=== PATIENT | female | born 1955 | race Caucasian/White ===

== ENCOUNTER 2017-07-09 11:36 | Emergency (ER) | payer MEDICAID, SELFPAY ==
[2017-07-09 11:42] VITALS: BP 140/65; PULSE 92; RESP 16; TEMP 36.9; O2SAT 100; BMI 53.1
--- NOTE | 2017-07-09 12:03 | HMH.EDSKAF ---
ED Disposition Clinical Impression: Left foot pain Disposition: Home, Self-Care Condition on Discharge: Good Instructions: DI for Skin Abscess Additional Instructions: Please go straight to Dr. Lambert's office at 1 PM, to be seen as a walk-in, as discussed with the office just now. Continue the current antibiotics until directed otherwise by Dr. Lambert. Referrals: Patricia Lambert, CARLEE [Physician] - Time of Disposition: 12:05 - Critical Care Critical Care Time: No Attestation: On , the high probability of a clinically significant, sudden or life threatening deterioration of the following system(s) required my full and direct attention, intervention and personal management. The time I documented below is in addition to time spent performing reported procedures but includes the following listed in this critical care notation. Medical Decision Making - Medical Records Medical records reviewed: Yes: I reviewed the patient's medical records. Vital Signs: 07/09/17 11:42 07/09/17 12:23 Temperature 98.4 F 98.4 F Temperature Source Oral Oral Pulse Rate 72 Pulse Rate [Right Radial] 92 H Respiratory Rate 16 16 Blood Pressure 148/86 Blood Pressure [Right Arm] 140/65 Blood Pressure Mean [Right Arm] 90 Blood Pressure Source Automatic Cuff Blood Pressure Source [Right Arm] Automatic Cuff Blood Pressure Position Supine Blood Pressure Position [Right Arm] Sitting 02 Sat by Pulse Oximetry 100 Oxygen Delivery Method Room Air Room Air - Physician Consults Physician Consulted: Dr Patricia Lambert Time: 12:05 Reason -: Pt condition, Podiatry Eval/Care Comment/Response: Case discussed with a wire harness design engineer, advise of patient's presentation and findings, agreeable to see patient today at 1 PM, as a walk-in. - Cristian Inquiry Pt receiving controlled substance: No Skin/Abscess/FB HPI - General Chief complaint: Skin/Abscess/Foreign Body Stated complaint: left foot infection Mode of Arrival: Ambulatory Limitations: No Limitations Description of Symptoms (Recalled from ER Triage Doc. by RN): Infection left foot - History of Present Illness HPI narrative: This is a 61-year-old female patient with a left sole sore for the past 2 weeks. She has seen her PCP which started her on clindamycin, and refer her to Dr. Patricia Lambert. Patient stated that she was unable to get an appointment with the wire harness design engineer until a month from now, so she decided to come to the emergency room instead. Patient advised that her PCP stuck a needle into her left sole and she has obtained fluid from that specific sore. complaint: other (Left sole sore) Onset (ago): week(s) (2) Tetanus up to date: yes Location: L foot Severity: mild Severity scale (1-10): 2 Quality: burning Consistency: intermittent Relieving factors: none Exacerbating factors: movement - Related Data Home Medications Medication Instructions Recorded Confirmed Lisinopril/Hydrochlorothiazide 1 tab PO DAILY 07/09/17 07/09/17 [Lisinopril-Hctz 10-12.5 mg Tab] Omeprazole [Omeprazole 20mg Tab] 20 mg PO DAILY MDD 20mg 07/09/17 07/09/17 Sulindac 200 mg PO BID 07/09/17 07/09/17 clindamycin HCl 300 mg capsule 300 mg PO TID 07/09/17 mupirocin 2 % topical ointment 1 applic TOPICAL BID 07/09/17 triamcinolone acetonide 0.1 % 1 applic TOPICAL BID 07/09/17 topical ointment Allergies Allergy/AdvReac Type Severity Reaction Status Date / Time No Known Allergies Allergy Verified 07/09/17 12:50 [facility] History I have reviewed the patient's past medical history: Yes Medical History: Denies:: Diabetes Mellitus Type 1, Diabetes Mellitus Type 2 Amputation: No Fractures: No - Social History Educational Level: Completed High School Smoking Status: Never smoker Alcohol Intake: never - Psychiatric History Expresses thoughts of harming self/others: None Suicide Plan Description: No Plan ROS Obtained: Yes All systems reviewed & no additional complaints, Yes Systems reviewe
--- NOTE | 2017-07-09 12:06 | ED_ITS ---
ED Disposition Clinical Impression: Left foot pain Disposition: Home, Self-Care Condition on Discharge: Good Instructions: DI for Skin Abscess Additional Instructions: Please go straight to Dr. Lambert's office at 1 PM, to be seen as a walk-in, as discussed with the office just now. Continue the current antibiotics until directed otherwise by Dr. Lambert. Referrals: Patricia Lambert, CARLEE [Physician] - Time of Disposition: 12:05 - Critical Care Critical Care Time: No Attestation: On , the high probability of a clinically significant, sudden or life threatening deterioration of the following system(s) required my full and direct attention, intervention and personal management. The time I documented below is in addition to time spent performing reported procedures but includes the following listed in this critical care notation. Medical Decision Making - Medical Records Medical records reviewed: Yes: I reviewed the patient's medical records. Vital Signs: 07/09/17 11:42 07/09/17 12:23 Temperature 98.4 F 98.4 F Temperature Source Oral Oral Pulse Rate 72 Pulse Rate [Right Radial] 92 H Respiratory Rate 16 16 Blood Pressure 148/86 Blood Pressure [Right Arm] 140/65 Blood Pressure Mean [Right Arm] 90 Blood Pressure Source Automatic Cuff Blood Pressure Source [Right Arm] Automatic Cuff Blood Pressure Position Supine Blood Pressure Position [Right Arm] Sitting 02 Sat by Pulse Oximetry 100 Oxygen Delivery Method Room Air Room Air - Physician Consults Physician Consulted: Dr Patricia Lambert Time: 12:05 Reason -: Pt condition, Podiatry Eval/Care Comment/Response: Case discussed with a cashier supervisor, advise of patient's presentation and findings, agreeable to see patient today at 1 PM, as a walk-in. - Cristian Inquiry Pt receiving controlled substance: No Skin/Abscess/FB HPI - General Chief complaint: Skin/Abscess/Foreign Body Stated complaint: left foot infection Mode of Arrival: Ambulatory Limitations: No Limitations Description of Symptoms (Recalled from ER Triage Doc. by RN): Infection left foot - History of Present Illness HPI narrative: This is a 61-year-old female patient with a left sole sore for the past 2 weeks. She has seen her PCP which started her on clindamycin, and refer her to Dr. Patricia Lambert. Patient stated that she was unable to get an appointment with the cashier supervisor until a month from now, so she decided to come to the emergency room instead. Patient advised that her PCP stuck a needle into her left sole and she has obtained fluid from that specific sore. complaint: other (Left sole sore) Onset (ago): week(s) (2) Tetanus up to date: yes Location: L foot Severity: mild Severity scale (1-10): 2 Quality: burning Consistency: intermittent Relieving factors: none Exacerbating factors: movement - Related Data Home Medications Medication Instructions Recorded Confirmed Lisinopril/Hydrochlorothiazide 1 tab PO DAILY 07/09/17 07/09/17 [Lisinopril-Hctz 10-12.5 mg Tab] Omeprazole [Omeprazole 20mg Tab] 20 mg PO DAILY MDD 20mg 07/09/17 07/09/17 Sulindac 200 mg PO BID 07/09/17 07/09/17 clindamycin HCl 300 mg capsule 300 mg PO TID 07/09/17 mupirocin 2 % topical ointment 1 applic TOPICAL BID 07/09/17 triamcinolone acetonide 0.1 % 1 applic TOPICAL BID 07/09/17 topical ointment
[2017-07-09 12:23] VITALS: BP 148/86; PULSE 72; RESP 16; TEMP 36.9
== END 2017-07-09 12:25 | disposition home or self-care (01) ==
LOC: ER 12:15
PROVIDERS: Emergency Provider Emergency Medicine; Family Provider Internal Medicine Adolescent Medicine; PCP Family Medicine
DX: L03.116 Cellulitis of left lower limb (principal)
CPT/HCPCS: 99281

== ENCOUNTER → 2017-07-09 13:20 | Outpatient (CLI) | payer MEDICAID, SELFPAY ==
--- NOTE | 2017-07-09 13:20 | XR_ITS ---
XR foot wt bearing LT 3V CLINICAL INDICATION: Left foot pain ORDERING PHYSICIAN: Patricia Lambert DPM PATIENT AGE: 61 years COMPARISON: None FINDINGS: Weightbearing views are performed. There is severe pes planus reversal of the Mearys ankle. There is mild dorsal subluxation of the navicular on the talus by nearly 5 mm. There are osteoarthritic changes of the calcaneal cuboid joint. No fracture or dislocation. No lytic or blastic change or is a calcaneal spur measuring 8 mm. IMPRESSION: Severe pes planus. Osteoarthritic changes of the calcaneal cuboid joint
== END ==
PROVIDERS: Visit Provider Podiatrist
DX: M79.672 Pain in left foot (principal)
CPT/HCPCS: 73630

== ENCOUNTER → 2017-07-09 13:55 | Outpatient (CLI) | payer MEDICAID, SELFPAY ==
[2017-07-09 16:02] LABS: C-Reactive Protein 0.2 mg/L (0.0-0.9)
[2017-07-09 16:14] LABS: Basophils # 0.1 K/mm3 (0-0.2); Basophils % 0.7 % (0.1-2.0); Eosinophils # 0.3 K/mm3 (0.0-0.4); Eosinophils % 4.6 % (0.1-12.0); Hematocrit 41.7 % (37.0-47.0); Hemoglobin 12.8 g/dL (12.2-16.2); Lymphocytes # 1.4 K/mm3 (0.7-4.5); Lymphocytes % 19.7 K/mm3 (10-50); Mean Corpuscular HGB Conc 30.7 g/dL (31.8-35.4); Mean Corpuscular Hemoglobin 29.6 pg (27.0-31.2); Mean Corpuscular Volume 96.4 fl (81-99); Mean Platelet Volume 9.9 fl (7.4-10.4); Monocytes # 0.3 K/mm3 (0.1-1.0); Monocytes % 4.2 % (1.7-9.3); Neutrophils # 4.9 K/mm3 (1.8-7.8); Neutrophils % 70.7 % (37.0-80.0); Platelet Count 219 K/mm3 (142-424); Red Blood Count 4.33 M/mm3 (4.20-5.40); Red Cell Distribution Width 13.3 % (11.5-17.5); White Blood Count 6.9 K/mm3 (4.8-10.8)
[2017-07-09 16:59] LABS: Erythrocyte Sedimentation Rate 13 mm/hr (0-30)
== END ==
PROVIDERS: Family Provider Internal Medicine Adolescent Medicine; Visit Provider Podiatrist
DX: Z00.00 Encounter for general adult medical examination without abnormal findings (principal)
CPT/HCPCS: 36415; 83036; 85025; 85651; 86140

== ENCOUNTER → 2018-02-04 08:11 | Outpatient (CLI) | payer MEDICAID, SELFPAY ==
--- NOTE | 2018-02-04 08:17 | MM_ITS ---
MM Dig screening mamm BI w/CAD ORDERING PHYSICIAN : Paolo Mauricio MD PATIENT AGE: 62 years GENDER: Female COMPARISON: September 2016, April 2013, January 2011. INDICATION: ITS.REASON: SCREENING no hormones no new complaints noncontributory family history. TECHNIQUE: Standard CC and MLO images were obtained. R2 CAD reviewed. FINDINGS: Low-density breast , with generalized fatty replacement. RIGHT BREAST:Stable no new findings. Stable axillary lymph nodes partially imaged. LEFT BREAST:Stable intramammary node at the deep lateral and deep upper outer quadrant left breast IMPRESSION: Stable bilateral mammogram Follow up one year BI-RADS Category: 1 Negative RECOMMENDED FOLLOW-UP: 1YR 1 YEAR FOLLOW-UP (A letter has been sent to the patient regarding results of the study.)
== END ==
PROVIDERS: PCP Family Medicine; Visit Provider Family Medicine
DX: Z12.31 Encounter for screening mammogram for malignant neoplasm of breast (principal)
CPT/HCPCS: 77067

== ENCOUNTER → 2018-05-07 11:07 | Outpatient (CLI) | payer MEDICAID, SELFPAY | PROVIDERS: Visit Provider Podiatrist | DX: L84 Corns and callosities (principal) | CPT/HCPCS: 87070; 87077; 87186; 87205 ==

== ENCOUNTER → 2020-06-03 10:21 | Outpatient (CLI) | payer MEDICARE, MEDICAID, SELFPAY ==
[2020-06-03 12:06] LABS: Basophils % 0.3 % (0.1-2.0); Eosinophils # 0.2 K/mm3 (0.0-0.4); Eosinophils % 2.5 % (0.1-12.0); Hemoglobin 13.4 g/dL (12.2-16.2); Mean Corpuscular HGB Conc 31.9 g/dL (31.8-35.4); Mean Corpuscular Hemoglobin 29.8 pg (27.0-31.2); Mean Corpuscular Volume 93.5 fl (81-99); Mean Platelet Volume 9.6 fl (7.4-10.4); Monocytes # 0.3 K/mm3 (0.1-1.0); Monocytes % 3.4 % (1.7-9.3); Neutrophils # 7.5 K/mm3 (1.8-7.8); Neutrophils % 82.8 % (37.0-80.0); Platelet Count 211 K/mm3 (142-424); Red Cell Distribution Width 14.1 % (11.5-17.5); White Blood Count 9.1 K/mm3 (4.8-10.8)
[2020-06-03 12:41] LABS: Coronavirus 19 IgG Antibody Positive (Negative); Coronavirus 19 IgM Antibody Negative (Negative)
== END ==
PROVIDERS: PCP Nurse Practitioner; Visit Provider Nurse Practitioner
DX: Z20.822 Contact with and (suspected) exposure to COVID-19 (principal); U07.1 COVID-19; I10 Essential (primary) hypertension
CPT/HCPCS: 36415; 85025; 86328; U0003

== ENCOUNTER 2020-06-06 11:02 | Outpatient (CLI) | payer MEDICARE, MEDICAID, SELFPAY ==
[2020-06-06] VITALS (9 sets, daily range): BP systolic 109–132; BP diastolic 59–81; PULSE 72–84; RESP 18–20; TEMP 36.4–36.8; O2SAT 96–98
== END 2020-06-06 14:46 | disposition home or self-care (01) ==
PROVIDERS: PCP Nurse Practitioner; Visit Provider Nurse Practitioner
DX: U07.1 COVID-19 (principal)
CPT/HCPCS: 96365

== ENCOUNTER 2020-06-11 09:47 | Observation (INO) | payer MEDICARE, MEDICAID, SELFPAY ==
[2020-06-11] VITALS (9 sets, daily range): BP systolic 102–142; BP diastolic 50–91; PULSE 69–109; RESP 18–20; TEMP 36.6–36.8; O2SAT 94–98; BMI 47.8; BMI 34.8
--- NOTE | 2020-06-11 10:10 | XR_ITS ---
PROCEDURE: XR FOOT RT MIN 3V CLINICAL INDICATION: infected heel blister Pain COMPARISON: CR [id number] XR foot wt bearing LT 3V from 07/09/2017 FINDINGS: No fracture or dislocation. No lytic or blastic change. There is normal mineralization. The joint spaces are well-preserved. No significant degenerative/arthritic changes. No erosive changes evident. Other findings:There is a small calcaneal spur. There is no evidence bony erosive change. There is pes planus and there is generalized soft tissue swelling. IMPRESSION: No acute findings. Dictated by: Hollis English MD 06/11/2020 12:51 Hollis English MD in [place] 06/11/2020 12:51
--- NOTE | 2020-06-11 10:14 | HMH.EDGENADL ---
ED Disposition Clinical Impression: Cellulitis of foot, COVID-19 virus infection, Vesicle of skin Disposition: Admitted as Observation Condition on Discharge: Fair - Critical Care Critical Care Time: No Attestation: On 06/11/20, the high probability of a clinically significant, sudden or life threatening deterioration of the following system(s) required my full and direct attention, intervention and personal management. The time I documented below is in addition to time spent performing reported procedures but includes the following listed in this critical care notation. Medical Decision Making - Medical Records Medical records reviewed: Yes: I reviewed the patient's medical records. MR Comment: Reviewed most recent visit to Dr. Lambert on 05/07/2018. At that time she had 2 blisters on her left foot. Culture showed MRSA. - Cristian Inquiry Pt receiving controlled substance: No Vital Signs: 06/11/20 09:48 06/11/20 10:21 06/11/20 11:01 Temperature 97.8 F Temperature Source Oral Pulse Rate Pulse Rate [Left Radial] 109 H 103 H 100 H Respiratory Rate 20 Blood Pressure Blood Pressure [Right Arm] 134/69 134/69 104/67 L Blood Pressure Mean [Right Arm] 90 90 79 Blood Pressure Source Blood Pressure Source [Right Arm] Automatic Cuff Automatic Cuff Automatic Cuff Blood Pressure Position Blood Pressure Position [Right Arm] Sitting Sitting Sitting 02 Sat by Pulse Oximetry 94 L 94 L 95 Oxygen Delivery Method Room Air Room Air Room Air 06/11/20 12:05 06/11/20 14:22 06/11/20 14:25 Temperature 97.9 F 97.8 F Temperature Source Oral Oral Pulse Rate 96 H Pulse Rate [Left Radial] 98 H 103 H Respiratory Rate 18 20 Blood Pressure 142/91 H Blood Pressure [Right Arm] 142/91 H 118/58 L Blood Pressure Mean [Right Arm] 108 78 Blood Pressure Source Automatic Cuff Blood Pressure Source [Right Arm] Automatic Cuff Blood Pressure Position Sitting Blood Pressure Position [Right Arm] Sitting 02 Sat by Pulse Oximetry 96 96 Oxygen Delivery Method Room Air Room Air Room Air - Lab Data Lab Results 06/11/20 10:44: WBC 19.3 H, RBC 4.77, Hgb 14.4, Hct 44.4, MCV 93.1, MCH 30.1, MCHC 32.3, RDW 13.9, Plt Count 276, MPV 8.9, Neut % (Auto) 88.6 H, Lymph % (Auto) 5.7 L, Real % (Auto) 3.5, Eos % (Auto) 1.8, Baso % (Auto) 0.3, Neut # (Auto) 17.1 H, Lymph # (Auto) 1.1, Real # (Auto) 0.7, Eos # (Auto) 0.4, Baso # (Auto) 0.1, Total Counted 100, Neutrophils % (Manual) 88 H, Lymphocytes % (Manual) 4 L, Monocytes % (Manual) 5, Eosinophils % (Manual) 3, Platelet Estimate Normal, RBC Morphology Normal, ESR 18 06/11/20 10:44: Sodium 137, Potassium 4.0, Chloride 102, Carbon Dioxide 28, Anion Gap 11.0, BUN 34 H, Creatinine 1.10 H, Estimated Creat Clear 42, Estimated GFR 50 L, Est GFR ( Amer) 60, Glucose 149 H, Calcium 10.1, C-Reactive Protein 202.3 H 06/11/20 10:44: Lactate 1.6 Result diagrams: 06/11/20 10:44 06/11/20 10:44 Orders (Tests/Meds): ED MEDICATIONS Generic Name Dose Route Start Last Admin Trade Name Freq PRN Reason Stop Dose Admin Acetaminophen 650 mg 06/11/20 13:06 Acetaminophen 325mg Tab PO 07/11/20 13:05 Q4HP PRN As Needed for Fever or Pain Lisinopril/HCTZ 1 each 06/12/20 09:00 Lisinopril/Hctz 10-12.5mg Tablet PO 07/12/20 08:59 DAILY [facility] Vancomycin HCl 2,250 mg/ 250 mls @ 125 mls/hr 06/12/20 11:00 Sodium Chloride IV 06/25/20 12:29 1100 [facility] Insulin Human Lispro 0 unit 06/11/20 16:30 Humalog 100 Units/Ml 3ml Vial (Ssi) SQ 07/11/20 16:29 ACHS [facility] Protocol Ondansetron HCl 4 mg 06/11/20 13:06 Ondansetron 4mg/2ml Vial IV 07/11/20 13:05 Q8HP PRN Nausea Discontinued Medications Generic Name Dose Route Start Last Admin Trade Name Freq PRN Reason Stop Dose Admin Clindamycin Phosphate 600 mg/ 104 mls @ 100 mls/hr 06/11/20 10:12 06/11/20 10:25 Sodium Chloride IV 06/11/20 11:14 100 mls/hr ONCE ONE Administration
[2020-06-11 10:58] LABS: Basophils # 0.1 K/mm3 (0-0.2); Basophils % 0.3 % (0.1-2.0); Eosinophils # 0.4 K/mm3 (0.0-0.4); Eosinophils % 1.8 % (0.1-12.0); Hematocrit 44.4 % (37.0-47.0); Hemoglobin 14.4 g/dL (12.2-16.2); Lymphocytes # 1.1 K/mm3 (0.7-4.5); Lymphocytes % 5.7 % (10-50); Mean Corpuscular HGB Conc 32.3 g/dL (31.8-35.4); Mean Corpuscular Hemoglobin 30.1 pg (27.0-31.2); Mean Corpuscular Volume 93.1 fl (81-99); Mean Platelet Volume 8.9 fl (7.4-10.4); Monocytes # 0.7 K/mm3 (0.1-1.0); Monocytes % 3.5 % (1.7-9.3); Neutrophils # 17.1 K/mm3 (1.8-7.8); Neutrophils % 88.6 % (37.0-80.0); Platelet Count 276 K/mm3 (142-424); Red Blood Count 4.77 M/mm3 (4.20-5.40); Red Cell Distribution Width 13.9 % (11.5-17.5); White Blood Count 19.3 K/mm3 (4.8-10.8)
[2020-06-11 10:59] LABS: MANUAL DIFFERENTIAL MANUAL DIFFERENTIAL (MANUAL DIFF)
[2020-06-11 11:01] LABS: Chloride 102 mmol/L (98-107); Sodium 137 mmol/L (136-145)
[2020-06-11 11:04] LABS: Blood Urea Nitrogen 34 mg/dl (7-17); Creatinine Clearance Estimated 42 mL/min (50-200); Estimated Glomerular Filt Rate 50 ml/min (>60); GFR (African American) 60 ML/MIN (>60)
[2020-06-11 11:05] LABS: Calcium 10.1 mg/dl (8.4-10.2); Carbon Dioxide 28 mmol/L (22.0-30.0); Glucose 149 mg/dl (74-100); Lactic Acid 1.6 mmol/L (0.7-2.1)
[2020-06-11 11:11] LABS: C-Reactive Protein 202.3 mg/L (0-4)
[2020-06-11 11:22] LABS: Erythrocyte Sedimentation Rate 18 mm/hr (0-30)
--- NOTE | 2020-06-11 11:24 | PC.NURSE ---
Dr Cordova speaking with Dr Cox at this time.
[2020-06-11 11:29] LABS: Eosinophils % 3 % (0-3); Lymphocytes % 4 % (10-50); Monocytes % 5 % (2-9); Neutrophils % 88 % (42-76); Platelet Estimate Normal; RBC Morphology Normal; Total Cells Counted 100
--- NOTE | 2020-06-11 11:47 | HMH.PHACONS ---
- Pharmacy Consult Date: 06/11/20 Time: 11:47 Referring provider: DR. WELLER Reason for Consult:: VANCOMYCIN DOSING Allergies and ADEs:: Allergies Allergy/AdvReac Type Severity Reaction Status Date / Time No Known Allergies Allergy Verified 05/07/18 09:25 Home Medications:: Home Medications Medication Instructions Recorded Confirmed Type Lisinopril/Hydrochlorothiazide 1 tab PO DAILY 07/09/17 05/07/18 History [Lisinopril-Hctz 10-12.5 mg Tab] Omeprazole [Omeprazole 20mg Tab] 20 mg PO DAILY MDD 20mg 07/09/17 05/07/18 History Sulindac 200 mg PO BID 07/09/17 05/07/18 History triamcinolone acetonide 0.1 % 1 applic TOPICAL BID 07/09/17 05/07/18 History topical ointment cholecalciferol (vitamin D3) 125 PO 30 Days #30 cap 04/22/18 05/07/18 History mcg (5,000 unit) capsule cyanocobalamin (vitamin B-12) PO 30 Days #30 tab 04/22/18 05/07/18 History 1,000 mcg tablet cephalexin 500 mg tablet 500 mg PO Q12H 10 Days #20 tab 04/30/18 05/07/18 Rx clindamycin HCl 300 mg capsule 300 mg PO TID 14 Days #42 cap 05/09/18 Rx Height: 1.6 m Weight: 122.47 kg Laboratory Results:: Laboratory Results - last 24 hr 06/11/20 10:44: WBC 19.3 H, RBC 4.77, Hgb 14.4, Hct 44.4, MCV 93.1, MCH 30.1, MCHC 32.3, RDW 13.9, Plt Count 276, MPV 8.9, Neut % (Auto) 88.6 H, Lymph % (Auto) 5.7 L, [place] % (Auto) 3.5, Eos % (Auto) 1.8, Baso % (Auto) 0.3, Neut # (Auto) 17.1 H, Lymph # (Auto) 1.1, [place] # (Auto) 0.7, Eos # (Auto) 0.4, Baso # (Auto) 0.1, Total Counted 100, Neutrophils % (Manual) 88 H, Lymphocytes % (Manual) 4 L, Monocytes % (Manual) 5, Eosinophils % (Manual) 3, Platelet Estimate Normal, RBC Morphology Normal, ESR 18 06/11/20 10:44: Sodium 137, Potassium 4.0, Chloride 102, Carbon Dioxide 28, Anion Gap 11.0, BUN 34 H, Creatinine 1.10 H, Estimated Creat Clear 42, Estimated GFR 50 L, Est GFR ( Amer) 60, Glucose 149 H, Calcium 10.1, C-Reactive Protein 202.3 H 06/11/20 10:44: Lactate 1.6 Medical History: Reports:: Hypertension Denies:: Asthma, Chronic Obstructive Pulmonary Disease (COPD), Diabetes Mellitus Type 1, Diabetes Mellitus Type 2, Hyperlipidemia, Renal Disease, Renal Insufficiency Assessment and Plan - Assessment and plan all Dx Assessment and Plan for all problems:: Age: 64 yo Serum creatinine: 1.1 mg/dL Height: 63.0 Inches Weight (kg): 122.5 Assessment: IBW (kg): 52.40 Dosing wt(kg): 122.5 Estimated Creatinine clearance (ml/min): 41.6 CRCL method: Cockcroft and Gault using ibw(default). Drug selected: Vancomycin Loading dose (mg): 0 Vd (liters): 98.0 (factor used: 0.8 L/kg) Arturo (hr-1): 0.039 Half life (hrs): 17.77 Recommended dose: 2250 mg Interval: 24 hrs Infusion time (hrs): 2.0 Predicted peak (mcg/mL): 36.3 Predicted trough (mcg/mL): 15.39 Total body weight is being used for vancomycin dosing. Recommendations: Give Vancomycin 2250 mg q 24 hrs with an expected Cpeak of 36.3 mcg/ml and an expected Ctrough of 15.39 mcg/ml
--- NOTE | 2020-06-11 11:52 | HMH.HP ---
*Admission Date: 06/11/20 *Chief complaint: foot pain *History of present illness: Ms. Sheets is a 64 yo female who states that she has had pain on the lateral aspect of her right heel for several days. Due to her size, she is unable to see her feet. However, she was able to take a photo of it last night and saw that there was a large blister there. The blister busted this morning when she was dressing. She contacted her primary care provider who advised her to come to the emergency department. She says that she has borderline diabetes . She takes Metformin. She has recently had COVID-19. She received an infusion of monoclonal antibodies on Saturday. She has been on steroids and a Z-Eddie. She finished steroids on Saturday, 3 days ago. She does not have any shortness of breath or cough. She says her Covid symptoms were related to sinuses. She has not had a fever. She has had problems with her feet, has had blisters of her feet in the past. She previously had been seeing Dr. Lambert, hay farmer at this facility, but now sees a hay farmer in [facility], she cannot remember his name. She last saw him about a year ago. (Above per ER physician) The patient had x-rays of her foot which revealed no signs of osteomyelitis. It was felt she would need admission for IV antibiotics. The ER physician consulted Dr. Cox and she will be admitted and started on vancomycin. Her white blood cell count was elevated at 19.3. Her C-reactive protein was 202.3. Her renal function was mildly elevated. A wound culture has been obtained. She is currently still in the emergency room but will be admitted. [facility] History I have reviewed the patient's past medical history: Yes Medical History: Reports:: Diabetes Mellitus Type 2, Gastroesophageal Reflux Disease(GERD), Hyperlipidemia, Hypertension Denies:: Asthma, Chronic Obstructive Pulmonary Disease (COPD), Diabetes Mellitus Type 1, Renal Disease, Renal Insufficiency *Have you ever received a pneumonia vaccine?: No *Have you received a flu vaccine this season?: No Other Medical History: Reports: Arthritis. Denies: Hypothyroidism, Thyroid Disease Other Surgeries: Yes: Other (Bowel) Amputation: No Fractures: No - *Social History Smoking Status: Never smoker Alcohol Intake: never Alcohol Intake Frequency:: other *Occupational Status:: employed *Travel in the last 8 weeks: None Family Hx:: Heart Attack, Cancer Review of Systems - Constitutional Denies chills, Denies fever(s) - Eyes Denies blurry vision, Denies double vision - ENT Reports nasal congestion, Denies sore throat - *Cardiovascular Denies chest pain, Denies shortness of breath - *Respiratory Denies chest congestion, Denies cough - *Gastrointestinal Denies abdominal pain, Denies loose stools, Denies nausea, Denies vomiting - *Genitourinary Denies difficulty urinating, Denies painful urination - *Musculoskeletal Denies joint pain - *Neurologic Denies headache(s), Denies dizziness Meds Home Medications Medication Instructions Recorded Confirmed Type Lisinopril/Hydrochlorothiazide 1 tab PO DAILY 07/09/17 05/07/18 History [Lisinopril-Hctz 10-12.5 mg Tab] Omeprazole [Omeprazole 20mg Tab] 20 mg PO DAILY MDD 20mg 07/09/17 05/07/18 History Sulindac 200 mg PO BID 07/09/17 05/07/18 History triamcinolone acetonide 0.1 % 1 applic TOPICAL BID 07/09/17 05/07/18 History topical ointment cholecalciferol (vitamin D3) 125 PO 30 Days #30 cap 04/22/18 05/07/18 History mcg (5,000 unit) capsule cyanocobalamin (vitamin B-12) PO 30 Days #30 tab 04/22/18 05/07/18 History 1,000 mcg tablet cephalexin 500 mg tablet 500 mg PO Q12H 10 Days #20 tab 04/30/18 05/07/18 Rx clindamycin HCl 300 mg capsule 300 mg PO TID 14 Days #42 cap 05/09/18 Rx Allergies Allergy/AdvReac Type Severity Reaction Status Date / Time No Known Allergies Allergy Verified 05/07/18 09:25 Exam Vital signs and Labs for Last 24 Hours: Te
--- NOTE | 2020-06-11 12:10 | PC.NURSE ---
TERRANCE Sumner at [facility]
[2020-06-11 16:20] LABS: POC Glucose,Bedside 127 (70-110)
--- NOTE | 2020-06-11 16:30 | PC.NURSE ---
UNABLE TO FIND FILE ON COMPUTER FROM [employer]. SEVERAL STAFF MEMBERS TRIED TO HELP AND WERE UNABLE TO FIND IT WELL. PICTURES ON [employer]. R FOOT ULCER 2 INCHES BY INCHES
--- NOTE | 2020-06-11 17:56 | PC.NURSE ---
A&OX4. PT HAS TOLERATED RA WELL THROUGHOUT SHIFT. RESPIRATIONS REGULAR AND UNLABORED. LUNG SOUNDS BILATERALLY CLEAR. NO COUGH NOTED. ACTIVE BOWEL SOUNDS HEARD IN ALL 4 QUADRANTS. SOFT AND NONTENDER ABDOMEN. NO BM THUS FAR. PT VOIDS PER BATHROOM INDEPENDENTLY. NO PAIN OR SOB REPORTED. GENERALIZED EDEMA NOTED. +1 PITTING EDEMA NOTED TO RLE. HAND RIG BUILDER EQUAL. +2 PULSES NOTED THROUGHOUT. ULCER NOTED TO R FOOT. BED IN LOWEST POSITION. CALL LIGHT WITHIN REACH. VSS. WILL CONTINUE TO MONITOR.
[2020-06-11 20:18] LABS: POC Glucose,Bedside 122 (70-110)
[2020-06-12] VITALS: BP 100/53; PULSE 91; RESP 18; TEMP 36.7; O2SAT 96
[2020-06-12 04:00] VITALS: BP 97/67; PULSE 96; RESP 18; TEMP 36.7; O2SAT 96
[2020-06-12 04:48] VITALS: BMI 53.9
[2020-06-12 05:16] LABS: POC Glucose,Bedside 106 (70-110)
--- NOTE | 2020-06-12 05:33 | PC.NURSE ---
PT. HAS C/O MILD PAIN TO R HEEL; RELIEVED WITH TYLENOL. DSG IN PLACE; C/D/I. BLE EDEMA NOTED, ENCOURAGED PT. TO ELEVATE BLE. PT. HAS NOT C/O N/V/D, DIZZINESS OR SOA.
[2020-06-12 07:04] LABS: Basophils % 0.3 % (0.1-2.0); Eosinophils # 0.5 K/mm3 (0.0-0.4); Eosinophils % 3.9 % (0.1-12.0); Hematocrit 42.3 % (37.0-47.0); Hemoglobin 13.3 g/dL (12.2-16.2); Lymphocytes # 1.5 K/mm3 (0.7-4.5); Lymphocytes % 10.8 % (10-50); Mean Corpuscular HGB Conc 31.5 g/dL (31.8-35.4); Mean Corpuscular Hemoglobin 29.5 pg (27.0-31.2); Mean Corpuscular Volume 93.7 fl (81-99); Mean Platelet Volume 8.9 fl (7.4-10.4); Monocytes # 0.6 K/mm3 (0.1-1.0); Monocytes % 4.5 % (1.7-9.3); Neutrophils # 10.9 K/mm3 (1.8-7.8); Neutrophils % 80.4 % (37.0-80.0); Platelet Count 256 K/mm3 (142-424); Red Blood Count 4.51 M/mm3 (4.20-5.40); Red Cell Distribution Width 13.9 % (11.5-17.5); White Blood Count 13.6 K/mm3 (4.8-10.8)
[2020-06-12 07:14] LABS: Blood Urea Nitrogen 46 mg/dl (7-17); Carbon Dioxide 28 mmol/L (22.0-30.0); Chloride 102 mmol/L (98-107); Creatinine Clearance Estimated 29 mL/min (50-200); Estimated Glomerular Filt Rate 41 ml/min (>60); GFR (African American) 50 ML/MIN (>60); Glucose 130 mg/dl (74-100); Sodium 138 mmol/L (136-145)
[2020-06-12 08:00] VITALS: BP 124/74; PULSE 102; RESP 16; TEMP 36.9; O2SAT 100
[2020-06-12 12:04] LABS: POC Glucose,Bedside 91 (70-110)
--- NOTE | 2020-06-12 13:15 | P.CONPHA_ITS ---
[facility] Pharmacy VTE Monitoring - Patient Demographics Admission date: 06/12/20 Report Date: 06/12/20 Time: 11:15 Allergies/Adverse Reactions: Patient Allergies No Known Allergies Allergy (Verified 05/07/18 09:25) Height: 1.52 m Weight: 124.738 kg Patient Problems: Current Active Problems Left foot pain (Acute) Cellulitis of foot (Acute) COVID-19 virus infection (Acute) Hypertension (Chronic) Hyperlipidemia (Chronic) Type 2 diabetes mellitus (Chronic) Obesity (Chronic) Vesicle of skin (Acute) - VTE Risk Labs: VTE Related Lab Results Hgb 13.3 g/dL (12.2-16.2) 06/12/20 06:50 Hct 42.3 % (37.0-47.0) 06/12/20 06:50 Plt Count 256 K/mm3 (142-424) 06/12/20 06:50 BUN 46 mg/dl (7-17) H D 06/12/20 06:50 Creatinine 1.30 mg/dl (0.52-1.04) H 06/12/20 06:50 Estimated Creat Clear 29 mL/min (50-200) 06/12/20 06:50 Was VTE Risk Assessment Performed: Yes VTE Score: 3 VTE Risk Level: Low Risk - Prophylaxis Types of VTE Prophylaxis: TEDS Knee High Location of Applied Device: Bilateral Lower Extremeties (EDWARD HOSE ORDERED)
--- NOTE | 2020-06-12 14:02 | HMH.ACPN2 ---
Internal Medicine - PN: Subj *Date: 06/12/20 *Time: 14:02 Interval history: Clinically she is stable and would like to be discharged if possible. Exam Vital signs and Labs for Last 24 Hours: Temp Pulse Resp BP Pulse Ox 98.5 F 102 H 16 124/74 100 06/12/20 08:00 06/12/20 08:00 06/12/20 08:00 06/12/20 08:00 06/12/20 08:00 Laboratory Results - last 24 hr 06/11/20 16:12: POC Glucose 127 H 06/11/20 19:59: POC Glucose 122 H 06/12/20 05:04: POC Glucose 106 06/12/20 06:50: WBC 13.6 H D, RBC 4.51, Hgb 13.3, Hct 42.3, MCV 93.7, MCH 29.5, MCHC 31.5 L, RDW 13.9, Plt Count 256, MPV 8.9, Neut % (Auto) 80.4 H, Lymph % (Auto) 10.8, [place] % (Auto) 4.5, Eos % (Auto) 3.9, Baso % (Auto) 0.3, Neut # (Auto) 10.9 H, Lymph # (Auto) 1.5, [place] # (Auto) 0.6, Eos # (Auto) 0.5 H, Baso # (Auto) 0.0 06/12/20 06:50: Sodium 138, Potassium 4.0, Chloride 102, Carbon Dioxide 28, Anion Gap 12.0, BUN 46 H D, Creatinine 1.30 H, Estimated Creat Clear 29, Estimated GFR 41 L, Est GFR ( Amer) 50 L, Glucose 130 H, Calcium 10.0 06/12/20 11:53: POC Glucose 91 I & O for Last 24 hours: Intake & Output 06/10/20 06/11/20 06/12/20 06/13/20 11:59 11:59 11:59 11:59 Intake Total 850 / 850 360 / 360 Output Total 120 / 120 Balance 730 / 730 360 / 360 Weight 270 lb 275 lb Microbiology Reports for the Last 24 Hours: Microbiology 06/11/20 10:30 Foot,Right - Abscess Gram Stain - Final 06/11/20 10:30 Foot,Right - Abscess Wound Culture - Preliminary Gram Positive Cocci - Constitutional no acute distress - *Routine HEENT Exam Head: Present: normocephalic Eye: Present: PERRL ENT: Present: mucous membranes moist - *Routine Cardiovascular Exam Present: RRR - *Routine Abdominal Exam Present: soft, obese. Absent: tenderness - *Routine Extremities Exam Present: edema Comments: PROCEDURE: The blister of the right lateral heel is today debrided with tissue scissors and forceps. There is a significant amount of necrotic tissue and drainage. Appears it will need deeper debridement. Dressing was replaced. Assessment and Plan (1) Cellulitis of foot Status: Acute Category: Medical Code(s): L03.119 - Cellulitis of unspecified part of limb (2) COVID-19 virus infection Status: Acute Category: Medical Code(s): U07.1 - COVID-19 (3) Hypertension Status: Chronic Category: Medical Code(s): I10 - Essential (primary) hypertension (4) Hyperlipidemia Status: Chronic Category: Medical Code(s): E78.5 - Hyperlipidemia, unspecified (5) Type 2 diabetes mellitus Status: Chronic Category: Medical Code(s): E11.9 - Type 2 diabetes mellitus without complications (6) Obesity Status: Chronic Category: Medical Code(s): E66.9 - Obesity, unspecified (7) Left foot pain Status: Acute Category: Medical Code(s): M79.672 - Pain in left foot - Assessment and plan all Dx Assessment and Plan for all problems:: IV antibiotics. Culture points toward gram-positive cocci. She is receiving vancomycin. Podiatry consult will be obtained
--- NOTE | 2020-06-12 14:06 | XR_ITS ---
PROCEDURE: XR CHEST 2V Referring Doctor: Rosa Maria Cox Patient Age:64Y CLINICAL HISTORY: COVID-19 COMPARISON: No exams were available for comparison FINDINGS: The lungs appear well expanded and fairly clear with no definitive focal pneumonia. .. I would only question possible subtle area opacity on the lateral film just anterior right suprahilar region/With this there may be some upper normal markings right suprahilar region on PA projection. Difficult to exclude a very subtle patchy infiltrate here but unimpressive but a similarly markings upper normal at the right base but I believe this is merely due to overlapping structures and some mild chronic changes. The most likely anterior fat pad anterior density here and accounts for the more focal density at the right cardiophrenic angle. Minimal linear scarring and atelectasis seen towards both lung bases. The heart is upper normal in size. Pulmonary vascularity appears generous but normal but no definite pleural effusions and no the the no overt CHF.. Chest wall unremarkable. Developing degenerative changes T-spine but marginal osteophytes. Arthritic changes at shoulders bilaterally noted with suspect rotator cuff demise on left IMPRESSION: No definitive nor prominent pneumonia, but on close inspection there is small questionable vague patchy area of minimal possible infiltrate density at anterior RUL. Equivocal observation If symptoms progress or persist follow-up is suggested . Heart upper normal in size/borderline cardiomegaly. Dictated by: Yuri Hansen MD 06/12/2020 15:22 Yuri Hansen MD in [place] 06/12/2020 15:22
--- NOTE | 2020-06-12 15:23 | PC.NURSE ---
A&OX4. PT HAS TOLERATED RA WELL THROUGHOUT SHIFT. RESPIRATIONS REGULAR AND UNLABORED. LUNG SOUNDS BILATERALLY CLEAR. NO COUGH NOTED. ACTIVE BOWEL SOUNDS HEARD IN ALL 4 QUADRANTS. SOFT AND NONTENDER ABDOMEN. NO BM THUS FAR. PT VOIDS PER BATHROOM INDEPENDENTLY. NO SOB REPORTED. GENERALIZED EDEMA NOTED. +1 PITTING EDEMA NOTED TO RLE. HAND SUPERVISOR IRRIGATION EQUAL. +2 PULSES NOTED THROUGHOUT. ULCER NOTED TO R FOOT. DID DEBRIDEMENT ON FOOT AND PT TOLERATED WELL. DRESSING CDI. PT REPORTED PAIN ONCE AND RECEIVED TYLENOL. PT RECEIVED BED BATH TODAY. BED IN LOWEST POSITION. CALL LIGHT WITHIN REACH. VSS. WILL CONTINUE TO MONITOR.
[2020-06-12 15:58] VITALS: BP 122/77; PULSE 98; RESP 18; TEMP 36.8; O2SAT 97
[2020-06-12 16:46] LABS: POC Glucose,Bedside 128 (70-110)
[2020-06-12 20:00] VITALS: BP 126/77; PULSE 98; RESP 16; TEMP 36.6; O2SAT 97
[2020-06-12 20:34] LABS: POC Glucose,Bedside 150 (70-110)
[2020-06-13] VITALS (17 sets, daily range): BP systolic 93–150; BP diastolic 47–82; PULSE 76–104; RESP 16–20; TEMP 36.4–37.1; O2SAT 90–98; BMI 53.9; BMI 54.1
--- NOTE | 2020-06-13 05:06 | PC.NURSE ---
pt. has c/o r heel pain x1 this shift; relieved with tylenol. Pt. has not c/o n/v/d, soa or dizziness this shift. BLE edema noted, encouraged pt. to elevate BLE. Dsg to r heel c/d/i.
[2020-06-13 05:32] LABS: POC Glucose,Bedside 112 (70-110)
[2020-06-13 08:27] LABS: Basophils # 0.1 K/mm3 (0-0.2); Basophils % 0.5 % (0.1-2.0); Eosinophils # 0.5 K/mm3 (0.0-0.4); Eosinophils % 4.2 % (0.1-12.0); Hematocrit 43.1 % (37.0-47.0); Hemoglobin 13.5 g/dL (12.2-16.2); Lymphocytes # 1.5 K/mm3 (0.7-4.5); Lymphocytes % 11.8 % (10-50); Mean Corpuscular HGB Conc 31.4 g/dL (31.8-35.4); Mean Corpuscular Hemoglobin 29.3 pg (27.0-31.2); Mean Corpuscular Volume 93.5 fl (81-99); Mean Platelet Volume 8.8 fl (7.4-10.4); Monocytes # 0.5 K/mm3 (0.1-1.0); Monocytes % 4.1 % (1.7-9.3); Neutrophils # 9.9 K/mm3 (1.8-7.8); Neutrophils % 79.3 % (37.0-80.0); Platelet Count 283 K/mm3 (142-424); Red Blood Count 4.61 M/mm3 (4.20-5.40); Red Cell Distribution Width 13.7 % (11.5-17.5); White Blood Count 12.5 K/mm3 (4.8-10.8)
--- NOTE | 2020-06-13 08:29 | HMH.ORTHOCON ---
*Admission Date: 06/12/20 <Chelo Roldan 06/13/20 08:35> *Reason for consult:: Right Heel DM Ulcer <MarquiselatashaChelo 06/13/20 08:35> *History of present illness: 64-year-old female Ms. Sheets presents with right heel diabetic ulcer. Patient's PCP had done some debriding yesterday on the heel and wound culture was obtained. The area this morning when compressed had a little bit of drainage as if there was a pocket of infection within the ulcer. Patient stated pain when running the thumb down the heel to express the drainage. The outer perimeter of some sloughing skin measures 4 x 4 cm the inner ulcer measures 1 to 1-1/2 cm. The area will just be cleaned and redressed with Betadine dressings. Dr. Lambert has consulted the patient for doing a I&D debridement of the area a little later today. Verbal and written consent has been obtained at the bedside this morning. The patient was made n.p.o. last night but it does appear the patient has had a full breakfast this morning so we will have to wait some time before we can proceed with doing the surgical I&D debridement. <YuliChelo L 06/13/20 08:35> [facility] History I have reviewed the patient's past medical history: Yes <Chelo Roldan 06/13/20 08:51> Medical History: Reports:: Diabetes Mellitus Type 2, Gastroesophageal Reflux Disease(GERD), Hyperlipidemia, Hypertension Denies:: Asthma, Cancer, Chronic Obstructive Pulmonary Disease (COPD), Diabetes Mellitus Type 1, MRSA, Renal Disease, Renal Insufficiency <YuliChelo L 06/13/20 08:35> *Have you ever received a pneumonia vaccine?: Yes <Chelo Roldan 06/13/20 08:35> *Have you received a flu vaccine this season?: Yes <Chelo Roldan 06/13/20 08:35> Other Medical History: Reports: Arthritis. Denies: Hypothyroidism, Thyroid Disease <Chelo Roldan 06/13/20 08:35> Other Surgeries: Yes: Other (Bowel) <Chelo Roldan 06/13/20 08:35> Amputation: No <Chelo Roldan 06/13/20 08:35> Fractures: No <Chelo Roldan 06/13/20 08:35> - *Social History Last grade of school completed: Some college <Chelo Roldan 06/13/20 08:35> Smoking Status: Never smoker <YuliChelo Calle 06/13/20 08:35> Alcohol Intake: never <YuliChelo Calle 06/13/20 08:35> Alcohol Intake Frequency:: other <YuliChelo Calle 06/13/20 08:35> *Occupational Status:: employed <YuliChelo Calle 06/13/20 08:35> Housing: house <YuliChelo Calle 06/13/20 08:35> Household Members: none <YuliChelo Calle 06/13/20 08:35> *Travel in the last 8 weeks: None <RodriallyssaChelo L 06/13/20 08:35> Family Hx:: Cancer, Diabetes, Heart Attack <YuliChelo Calle 06/13/20 08:35> Review of Systems - Constitutional Denies anorexia <RodriallyssaChelo Calle 06/13/20 08:51> - Eyes Reports blurry vision, Denies change in vision <MarquiselatashaChelo L 06/13/20 08:51> - ENT Denies abnormal hearing, Denies dry mouth <MarquiselatashaChelo Alva 06/13/20 08:51> - *Cardiovascular Denies chest pain <RodriallyssaChelo Calle 06/13/20 08:51> - *Respiratory Denies chest congestion, Denies cough, Denies shortness of breath <RodriallyssaChelo Alva 06/13/20 08:51> - *Gastrointestinal Denies abdominal pain <RodriallyssaChelo L 06/13/20 08:51> - *Musculoskeletal Denies numbness, Denies tingling <Chelo Roldan 06/13/20 08:51> - Integumentary/Breasts Reports dry skin, Reports wounds <Chelo Roldan 06/13/20 08:51> - *Neurologic Denies confusion, Denies headache(s), Denies tingling/numbness/burning sensations, Denies dizziness <Chelo Roldan 06/13/20 08:51> - Psychiatric Denies anxiety <Chelo Roldan 06/13/20 08:51> - Endocrine Denies cold intolerance <Chelo Roldan 06/13/20 08:51> Meds Home Medications Medication Instructions Recorded Confirmed Type Lisinopril/Hydrochlorothiazide 1 tab PO DAILY 07/09/17 06/11/20 History [Lisinopril-Hctz 10-12.5 mg Tab] Sulindac 200 mg PO BID 07/09/17 06/11/20 Histor
--- NOTE | 2020-06-13 08:47 | HMH.ACPN2 ---
Internal Medicine - PN: Subj *Date: 06/13/20 *Time: 08:47 Interval history: Patient states she is better and feels like she can go home. She has been seen by podiatry with the following: Comments: Right medial heel diabetic ulcer measuring approximately 4 x 4 cm on the total perimeter. There is erythema and sloughing skin noted. The inner perimeter of the ulcer measures 1X 1.5X 0CM. Mild serosanguineous drainage was compressed when running the thumb down the heel and compressing the ulcer. There has already been a wound culture obtained to the site. The area was not debrided at bedside today because patient is going to have a more aggressive I&D debridement later this afternoon. Surgical consent has been obtained. She is eating and drinking without difficulties. She is up in the room. Chest pain and shortness of breath. She denies cough. Chest x-ray completed yesterday show note definite more prominent pneumonia there is some questionable vague patchy area of minimal possible infiltrate density at the anterior right upper quadrant.White blood cell count has decreased to 12,500 with a hemoglobin of 13.5 and hematocrit of 43.1. Wound culture did reveal MRSA sensitive to vancomycin Exam Vital signs and Labs for Last 24 Hours: Temp Pulse Resp BP Pulse Ox 97.7 F 85 18 124/102 H 97 06/13/20 08:00 06/13/20 08:00 06/13/20 08:00 06/13/20 08:00 06/13/20 08:00 Laboratory Results - last 24 hr 06/12/20 11:53: POC Glucose 91 06/12/20 16:38: POC Glucose 128 H 06/12/20 20:23: POC Glucose 150 H 06/13/20 05:21: POC Glucose 112 H 06/13/20 08:15: WBC 12.5 H, RBC 4.61, Hgb 13.5, Hct 43.1, MCV 93.5, MCH 29.3, MCHC 31.4 L, RDW 13.7, Plt Count 283, MPV 8.8, Neut % (Auto) 79.3, Lymph % (Auto) 11.8, [place] % (Auto) 4.1, Eos % (Auto) 4.2, Baso % (Auto) 0.5, Neut # (Auto) 9.9 H, Lymph # (Auto) 1.5, [place] # (Auto) 0.5, Eos # (Auto) 0.5 H, Baso # (Auto) 0.1 I & O for Last 24 hours: Intake & Output 06/10/20 06/11/20 06/12/20 06/13/20 11:59 11:59 11:59 11:59 Intake Total 850 / 850 970 / 970 Output Total 120 / 120 240 / 240 Balance 730 / 730 730 / 730 Weight 270 lb 275 lb 275 lb 0.003 oz Microbiology Reports for the Last 24 Hours: Microbiology 06/11/20 10:30 Foot,Right - Abscess Gram Stain - Final 06/11/20 10:30 Foot,Right - Abscess Wound Culture - Preliminary Staphylococcus aureus - Constitutional no acute distress Comments: Sitting in recliner and has completed her breakfast. She appears comfortable. - *Routine Respiratory Exam Present: CTA bilaterally (Anteriorly and posteriorly) - *Routine Cardiovascular Exam Present: RRR - *Routine Abdominal Exam Present: soft, normoactive bowel sounds. Absent: tenderness - *Routine Extremities Exam Present: edema (Right leg is larger than the the left; dressing is clean and dry.) - *Routine Neurological Exam Present: alert, oriented X3 Assessment and Plan (1) Cellulitis of foot Status: Acute Category: Medical Code(s): L03.119 - Cellulitis of unspecified part of limb (2) COVID-19 virus infection Status: Acute Category: Medical Code(s): U07.1 - COVID-19 (3) Hypertension Status: Chronic Category: Medical Code(s): I10 - Essential (primary) hypertension (4) Hyperlipidemia Status: Chronic Category: Medical Code(s): E78.5 - Hyperlipidemia, unspecified (5) Type 2 diabetes mellitus Status: Chronic Category: Medical Code(s): E11.9 - Type 2 diabetes mellitus without complications (6) Obesity Status: Chronic Category: Medical Code(s): E66.9 - Obesity, unspecified (7) Left foot pain Status: Acute Category: Medical Code(s): M79.672 - Pain in left foot - Assessment and plan all Dx Assessment and Plan for all problems:: Plan is for patient to have an I&D of the right heel wound today. Continue with IV vancomycin.
--- NOTE | 2020-06-13 09:08 | ECG_ITS ---
APPROVED REPORT Exam: Resting ECG HR:93 bpm ECG Measurements Heart Rate 93 AXES CA 156 P 50 QRSd 82 QRS 39 QT 360 T 54 QTc 447 Conclusion Normal sinus rhythm Low voltage QRS Cannot rule out Anterior infarct, age undetermined Abnormal ECG Electronically signed by : Supa Shelley, 06/14/2020 07:11:43
[2020-06-13 09:31] LABS: Erythrocyte Sedimentation Rate 44 mm/hr (0-30)
[2020-06-13 11:29] LABS: Vancomycin,Trough 18.1 ug/mL (5.0-10.0)
--- NOTE | 2020-06-13 12:26 | P.CONPHA_ITS ---
- Pharmacy Consult Date: 06/13/20 Time: 12:26 Referring provider: DR. MARCELO Reason for Consult:: VANCOMYCIN TROUGH LEVEL Allergies and ADEs:: Allergies Allergy/AdvReac Type Severity Reaction Status Date / Time No Known Allergies Allergy Verified 05/07/18 09:25 Home Medications:: Home Medications Medication Instructions Recorded Confirmed Type Lisinopril/Hydrochlorothiazide 1 tab PO DAILY 07/09/17 06/11/20 History [Lisinopril-Hctz 10-12.5 mg Tab] Sulindac 200 mg PO BID 07/09/17 06/11/20 History cholecalciferol (vitamin D3) 125 1 cap PO DAILY 30 Days #30 cap 04/22/18 06/11/20 History mcg (5,000 unit) capsule cyanocobalamin (vitamin B-12) 1 cap PO DAILY 30 Days #30 tab 04/22/18 06/11/20 History 1,000 mcg tablet Metformin HCl [Glucophage 500mg 250 mg PO DAILY 06/11/20 06/12/20 History Tablet] Height: 1.52 m Weight: 124.738 kg Laboratory Results:: Laboratory Results - last 24 hr 06/12/20 16:38: POC Glucose 128 H 06/12/20 20:23: POC Glucose 150 H 06/13/20 05:21: POC Glucose 112 H 06/13/20 08:15: WBC 12.5 H, RBC 4.61, Hgb 13.5, Hct 43.1, MCV 93.5, MCH 29.3, MCHC 31.4 L, RDW 13.7, Plt Count 283, MPV 8.8, Neut % (Auto) 79.3, Lymph % (Auto) 11.8, [place] % (Auto) 4.1, Eos % (Auto) 4.2, Baso % (Auto) 0.5, Neut # (Auto) 9.9 H, Lymph # (Auto) 1.5, [place] # (Auto) 0.5, Eos # (Auto) 0.5 H, Baso # (Auto) 0.1 06/13/20 08:15: C-Reactive Protein 144.0 H 06/13/20 08:55: ESR 44 H 06/13/20 10:37: Vancomycin Trough 18.1 H Medical History: Reports:: Diabetes Mellitus Type 2, Gastroesophageal Reflux Disease(GERD), Hyperlipidemia, Hypertension Denies:: Asthma, Cancer, Chronic Obstructive Pulmonary Disease (COPD), Diabetes Mellitus Type 1, MRSA, Renal Disease, Renal Insufficiency Assessment and Plan (1) Cellulitis of foot Status: Acute Category: Medical Code(s): L03.119 - Cellulitis of unspecified part of limb (2) COVID-19 virus infection Status: Acute Category: Medical Code(s): U07.1 - COVID-19 (3) Hypertension Status: Chronic Category: Medical Code(s): I10 - Essential (primary) hypertension (4) Hyperlipidemia Status: Chronic Category: Medical Code(s): E78.5 - Hyperlipidemia, unspecified (5) Type 2 diabetes mellitus Status: Chronic Category: Medical Code(s): E11.9 - Type 2 diabetes mellitus without complications (6) Obesity Status: Chronic Category: Medical Code(s): E66.9 - Obesity, unspecified (7) Ulcer of foot with fat layer exposed Start date: 06/13/20 Status: Acute Category: Medical Code(s): L97.502 - Non-pressure chronic ulcer of other part of unspecified foot with fat layer exposed (8) Ulcer of right heel Status: Acute Category: Medical Code(s): L97.419 - Non-pressure chronic ulcer of right heel and midfoot with unspecified severity (9) Foot abscess, right Status: Acute Category: Medical Code(s): L02.611 - Cutaneous abscess of right foot - Assessment and plan all Dx Assessment and Plan for all problems:: BASED ON PATIENT FACTORS AND VANCOMYCIN TROUGH LEVEL, RECOMMEND CONTINUING VANCOMYCIN 2250 MG IV Q24H. PHARMACY WILL CONTINUE TO MONITOR DAILY AND ADJUST APPROPRIATE.
--- NOTE | 2020-06-13 14:34 | P.PN_ITS ---
[facility] Anesthesia Checklist - Patient Identification Patient Identification: Arm Band - Structural Data Admitted From: Home Planned Operative Procedure/s: I&D Right Heal Abscess Consent for Planned Operative Procedure(s) Verified: Yes Verified Documents: Surgical Consent, History and Physical - NPO Status Verified Time NPO: 00:00 - Additional verifications Anesthesia Reactions: No - Airway Assessment C-Spine Mobility Assessed: Yes (mp2) TMJ Mobility Assessed: Yes Dentition: Good Dentition - Neurological Assessment Level of Consciousness: Awake, Alert - Anesthesia Plan Anesthesia Risk discussed: Yes Anesthesia Plan: Verified ASA Class: III Anesthesia Type: General [facility] History I have reviewed the patient's past medical history: Yes Medical History: Reports:: Diabetes Mellitus Type 2, Gastroesophageal Reflux Disease(GERD), Hyperlipidemia, Hypertension Denies:: Asthma, Cancer, Chronic Obstructive Pulmonary Disease (COPD), Diabetes Mellitus Type 1, MRSA, Renal Disease, Renal Insufficiency *Have you ever received a pneumonia vaccine?: Yes *Have you received a flu vaccine this season?: Yes Other Medical History: Reports: Arthritis. Denies: Hypothyroidism, Thyroid Disease Anesthesia experience/problems:: nac Other Surgeries: Yes: Other (Bowel) Amputation: No Fractures: No - *Social History Last grade of school completed: Some college Smoking Status: Never smoker Alcohol Intake: never Alcohol Intake Frequency:: other Substance Use Type: denies use *Occupational Status:: employed Housing: house Household Members: none *Travel in the last 8 weeks: None Family Hx:: Cancer, Diabetes, Heart Attack
--- NOTE | 2020-06-13 16:19 | HMH.OPNOTE ---
Date of procedure: 06/13/20 Pre-op Diagnosis:: 1. Right foot abscess 2. Right foot diabetic ulcer 3. Right foot infection Post-op Diagnosis:: Same Procedure performed:: 1. Right foot incision and drainage 2. Right ulcer deep wound debridement 3. Right foot calcaneal bone culture, biospy 4. Right foot delayed priamry closure 5. Application of wound VAC Surgeon:: Patricia Lambert DPM LANDMEN:: Other (Emanuel Cotrez) Anesthesia: GETA, local (30cc 0.5% marcaine plain) Estimated blood loss (mL): 30 Clinical Note:: Patient is a 64-year-old diabetic female who was admitted 06/11/2020 for right foot cellulitis. She had bedside debridement by Dr. Cox 06/12/2020 of a blister which had underlying deep infection. Wound culture was taken at the bedside which is showing MRSA susceptible to vancomycin. It was felt deep debridement was needed. Radiographs of the right foot were reviewed and discussed with the patient. X-rays show no evidence of osteomyelitis or deep infection. We discussed conservative versus surgical treatment options. Conservative treatment options include local wound care, oral and IV antibiotics, change in shoe wear, taping/padding, and off-loading. Discussed that patient would benefit from a wider and deeper shoe wear to accommodate the deformity. We discussed surgical intervention for incision and drainage of the abscess and deep wound debridement. Patient understands that there is a chance she may need more surgery, including further debridement. Patient also understands that they could have wound healing complications including delayed healing and infection. We discussed that if the wound does not heal, it is possible that they may need a more proximal amputation and could result in further loss of digits, loss of partial foot or loss of leg. We discussed the risks and benefits in great detail. Other surgical risks include: prolonged pain and swelling, further infection requiring oral or IV antibiotics, delay in healing of soft tissue or bone, nerve or blood vessel damage, CRPS/RSD, DVT, anesthesia complications, and even . All questions answered. Patient verbalized understanding. Consent obtained. PCP Dr. Cox for medical clearance. Pre-op labs: ESR, CRP, Ha1c, CBC, CMP, EKG, CXR reviewed. Operative findings:: The right lateral heel had a large 4 x 4 cm defect with a central ulceration that was approximately 1 x 1.5 cm. There was necrotic tissue with periwound maceration and sloughing. Creamy thick purulent drainage noted. Upon debridement the soft tissue was stringing and shredded with deeper involvement. Approximately 10 cc of thick milky malodorous purulent drainage was expressed. There was tracking across the inferior aspect of the heel. The heel was sharply excisionally debrided full-thickness. There was one area that did track to the calcaneus. Bone was intact but soft at this level. Post debridement wound full-thickness, base 100% granular with healthy bleeding noted. Post debridement ulcer measured 7.1 x 6.5 x 6 cm with tracking across the inferior heel. Wound was loosely reapproximated and post partial closure wound measured: 7.1 x 3.2 x 3 cm when the wound VAC was applied. Operative note:: On this date and time patient was deemed an appropriate surgical candidate. With informed consent signed, the patient was taken to the operating theater room. The patient was positioned supine. General anesthesia was induced. No tourniquet used. Pre-op right ankle block given with 30 cc 0.5% marcaine plain. Right foot incision and drainage, deep foot wound debridement, calcaneal bone biospy: The lower extremity was prepped and draped in normal sterile fashion. There is an ulcer noted to the inferior lateral aspect of the right heel. Predebridement area was 4 x 4 centimeters with an area centrally 1.0x1.5x0.3cm. The wound base was had areas of necrotic tissue. There was skin sloughing and periwound maceration. The wound probed centrally, with an ar
--- NOTE | 2020-06-13 16:39 | XR_ITS ---
PROCEDURE: XR FOOT RT MIN 3V CLINICAL INDICATION: Post op bone biospy Follow-up surgery COMPARISON: CR [id number] XR foot wt bearing LT 3V from 07/09/2017 CR XR FOOT RT MIN 3V from 06/11/2020 FINDINGS: Three views are obtained by portable technique with limitations in positioning. There is a tubular device overlying the lateral aspect of the foot and ankle terminating overlying the soft tissues in the plantar surface of the calcaneus. Soft tissue air is present in this region presumed postsurgical. There has been an interval resection of the calcaneal spur. IMPRESSION: Postsurgical changes as described above Dictated by: Hollis English MD 06/13/2020 19:01 Hollis English MD in [place] 06/13/2020 19:01
[2020-06-13 17:17] LABS: POC Glucose,Bedside 96 (70-110)
--- NOTE | 2020-06-13 20:30 | PC.NURSE ---
PT IS AOX4, ABLE TO MAKE NEEDS KNOWN TO STAFF, SHE HAS REQUIRED PAIN MEDICINE X1 THIS SHIFT, HER VSS T/O SHIFT. NO NEEDS A THIS TIME.
[2020-06-13 21:32] LABS: POC Glucose,Bedside 173 (70-110)
[2020-06-14] VITALS: BP 112/74; PULSE 95; RESP 20; TEMP 36.7; O2SAT 95
[2020-06-14 04:19] VITALS: BP 165/95; PULSE 104; RESP 17; TEMP 36.6; O2SAT 91
--- NOTE | 2020-06-14 05:06 | PC.NURSE ---
patient tolerated right foot I and D procedure, dressing c/d/i with wound vac in place. Patient is Covid 19 positive asymptomatic. Call light within reach and bed at lowest level for safety.
[2020-06-14 05:21] VITALS: BMI 54.1
[2020-06-14 06:11] LABS: POC Glucose,Bedside 126 (70-110)
[2020-06-14 06:34] LABS: Basophils % 0.2 % (0.1-2.0); Eosinophils # 0.1 K/mm3 (0.0-0.4); Eosinophils % 0.4 % (0.1-12.0); Hematocrit 36.4 % (37.0-47.0); Lymphocytes % 7.1 % (10-50); Mean Corpuscular Hemoglobin 29.6 pg (27.0-31.2); Mean Corpuscular Volume 92.6 fl (81-99); Mean Platelet Volume 9.4 fl (7.4-10.4); Monocytes # 0.7 K/mm3 (0.1-1.0); Monocytes % 4.7 % (1.7-9.3); Neutrophils # 12.9 K/mm3 (1.8-7.8); Neutrophils % 87.7 % (37.0-80.0); Platelet Count 285 K/mm3 (142-424); Red Blood Count 3.93 M/mm3 (4.20-5.40); Red Cell Distribution Width 13.7 % (11.5-17.5); White Blood Count 14.7 K/mm3 (4.8-10.8)
[2020-06-14 06:42] LABS: MANUAL DIFFERENTIAL MANUAL DIFFERENTIAL (MANUAL DIFF)
[2020-06-14 06:44] LABS: Chloride 104 mmol/L (98-107); Sodium 137 mmol/L (136-145)
[2020-06-14 06:47] LABS: Alanine Aminotransferase 13 U/L (12-78); Albumin Level 3.6 g/dl (3.5-5.0); Albumin/Globulin Ratio 1.1 (1.1-1.8); Alkaline Phosphatase 81 U/L (38-126); Aspartate Amino Transferase 22 U/L (14-36); Bilirubin,Total 0.5 mg/dl (0.2-1.3); Blood Urea Nitrogen 41 mg/dl (7-17); Calcium 10.3 mg/dl (8.4-10.2); Carbon Dioxide 30 mmol/L (22.0-30.0); Creatinine Clearance Estimated 34 mL/min (50-200); Estimated Glomerular Filt Rate 50 ml/min (>60); GFR (African American) 60 ML/MIN (>60); Globulin 3.3 g/dL (1.3-3.2); Glucose 140 mg/dl (74-100); Hemoglobin 11.6 g/dL (12.2-16.2); Total Protein,Serum 6.9 g/dl (6.3-8.2)
[2020-06-14 07:09] LABS: C-Reactive Protein 83.4 mg/L (0-4)
[2020-06-14 07:16] LABS: Erythrocyte Sedimentation Rate 84 mm/hr (0-30)
[2020-06-14 07:38] LABS: Lymphocytes % 12 % (10-50); Monocytes % 7 % (2-9); Neutrophils % 81 % (42-76); Platelet Estimate Normal; RBC Morphology Normal; Total Cells Counted 100
[2020-06-14 08:03] VITALS: BP 158/67; PULSE 82; RESP 17; TEMP 36.7; O2SAT 96
--- NOTE | 2020-06-14 08:05 | HMH.ACPN2 ---
Internal Medicine - PN: Subj *Date: 06/14/20 *Time: 08:05 Interval history: Patient states her pain is controlled with pain medicine. She did sleep last night. She has been able to eat. She has right foot dressing wound VAC. She is voiding QS. She has been afebrile. White blood cell count this morning is 14,700 with a hemoglobin of 11.6 and hematocrit of 36.4. Blood chemistries with normal electrolytes. BUN is 41 and creatinine is 1.1. Blood sugars have been controlled. Initial wound culture shows MRSA. Patient remains on vancomycin IV. Exam Vital signs and Labs for Last 24 Hours: Temp Pulse Resp BP Pulse Ox 98.0 F 82 17 158/67 H 96 06/14/20 08:03 06/14/20 08:03 06/14/20 08:03 06/14/20 08:03 06/14/20 08:03 Laboratory Results - last 24 hr 06/13/20 08:15: WBC 12.5 H, RBC 4.61, Hgb 13.5, Hct 43.1, MCV 93.5, MCH 29.3, MCHC 31.4 L, RDW 13.7, Plt Count 283, MPV 8.8, Neut % (Auto) 79.3, Lymph % (Auto) 11.8, [place] % (Auto) 4.1, Eos % (Auto) 4.2, Baso % (Auto) 0.5, Neut # (Auto) 9.9 H, Lymph # (Auto) 1.5, [place] # (Auto) 0.5, Eos # (Auto) 0.5 H, Baso # (Auto) 0.1 06/13/20 08:15: C-Reactive Protein 144.0 H 06/13/20 08:55: ESR 44 H 06/13/20 10:37: Vancomycin Trough 18.1 H 06/13/20 13:10: POC Glucose 96 06/13/20 21:00: POC Glucose 173 H 06/14/20 05:45: ESR 84 H 06/14/20 05:45: C-Reactive Protein 83.4 H D 06/14/20 05:45: WBC 14.7 H, RBC 3.93 L, Hgb 11.6 L D, Hct 36.4 L, MCV 92.6, MCH 29.6, MCHC 32.0, RDW 13.7, Plt Count 285, MPV 9.4, Neut % (Auto) 87.7 H, Lymph % (Auto) 7.1 L, Lim[place] % (Auto) 4.7, Eos % (Auto) 0.4, Baso % (Auto) 0.2, Neut # (Auto) 12.9 H, Lymph # (Auto) 1.0, Lim[place] # (Auto) 0.7, Eos # (Auto) 0.1, Baso # (Auto) 0.0, Total Counted 100, Neutrophils % (Manual) 81 H, Lymphocytes % (Manual) 12, Monocytes % (Manual) 7, Platelet Estimate Normal, RBC Morphology Normal 06/14/20 05:45: Sodium 137, Potassium 5.0 D, Chloride 104, Carbon Dioxide 30, Anion Gap 8.0, BUN 41 H, Creatinine 1.10 H, Estimated Creat Clear 34, Estimated GFR 50 L, Est GFR ( Amer) 60, Glucose 140 H, Calcium 10.3 H, Total Bilirubin 0.5, AST 22, ALT 13, Alkaline Phosphatase 81, Total Protein 6.9, Albumin 3.6, Globulin 3.3 H, Albumin/Globulin Ratio 1.1 06/14/20 05:53: POC Glucose 126 H I & O for Last 24 hours: Intake & Output 06/11/20 06/12/20 06/13/20 06/14/20 11:59 11:59 11:59 11:59 Intake Total 850 / 850 1210 / 1210 720 / 720 Output Total 120 / 120 480 / 480 500 / 500 Balance 730 / 730 730 / 730 220 / 220 Weight 270 lb 275 lb 275 lb 0.003 oz 275 lb 9.245 oz Microbiology Reports for the Last 24 Hours: Microbiology 06/13/20 15:17 Foot,Right Gram Stain - Final 06/13/20 15:17 Foot,Right Wound Culture - Preliminary 06/11/20 10:11 Blood Blood Culture - Preliminary NO GROWTH AFTER 48 HOURS 06/11/20 10:11 Blood Blood Culture - Preliminary NO GROWTH AFTER 48 HOURS 06/11/20 10:30 Foot,Right - Abscess Gram Stain - Final 06/11/20 10:30 Foot,Right - Abscess Wound Culture - Final Staphylococcus aureus - Constitutional no acute distress Comments: Sitting up in the bed and appears comfortable - *Routine Respiratory Exam Present: CTA bilaterally (Anteriorly and posteriorly) - *Routine Cardiovascular Exam Present: RRR - *Routine Abdominal Exam Present: soft, normoactive bowel sounds. Absent: tenderness, distended - *Routine Extremities Exam Present: edema (Left lower extremity. Right lower extremity with edema. Dressing with Bon clean and dry with wound VAC attached.) - *Routine Neurological Exam Present: alert, oriented X3 Assessment and Plan (1) Cellulitis of foot Status: Acute Category: Medical Code(s): L03.119 - Cellulitis of unspecified part of limb (2) COVID-19 virus infection Status: Acute Category: Medical Code(s): U07.1 - COVID-19 (3) Hypertension Status: Chronic Category: Medical Co
--- NOTE | 2020-06-14 09:00 | HMH.ORTHPN ---
Subjective Date: 06/14/20 Time: 08:25 Principal diagnosis: Right foot cellulitis, abscess Interval history: Patient is resting comfortably in bed. She denies pain to the right foot. She denies nausea vomiting, fever chills. PN: Obj Ex Vital signs: Temp Pulse Resp BP Pulse Ox 98.0 F 82 17 158/67 H 96 06/14/20 08:03 06/14/20 08:03 06/14/20 08:03 06/14/20 08:03 06/14/20 08:03 - Constitutional no acute distress - Routine HEENT Exam Head: Present: normocephalic - Routine Neck Exam Present: supple - Routine Respiratory Exam Present: accessory muscle use - Routine Cardiovascular Exam Present: RRR - Routine Abdominal Exam Present: soft - Detailed Lower Extremity Exam Top foot image: 1 - Right foot dressing and wound vac clean dry and intact. Minimal serosanginous drainage in canister. There skin is warm. CFT and pedal pulses noted. Muscle strength, motor function and light touch sensation at baseline. No calf or thigh pain noted b/l. Progress Note: A&P (1) Cellulitis of foot Status: Acute (2) COVID-19 virus infection Status: Acute (3) Hypertension Status: Chronic (4) Hyperlipidemia Status: Chronic (5) Type 2 diabetes mellitus Status: Chronic (6) Obesity Status: Chronic (7) Ulcer of foot with fat layer exposed Status: Acute (8) Ulcer of right heel Status: Acute (9) Foot abscess, right Status: Acute (10) Infection of wound due to methicillin resistant Staphylococcus aureus (MRSA) Status: Acute Assessment and Plan for All Diagnoses:: Sx 06/13/20, s/p right foot incision and drainage, ulcer deep wound debridement, foot calcaneal bone culture, biospy, foot delayed priamry closure, application of wound VAC POD #1 06/11/20, wound culture right foot: MRSA 06/13/20, Intra-op right foot cultures: Right deep wound culture, tissue culture pending Right calcaneus bone culture, bone pathology pending The outer dressing was removed and the skin looks intact with no ascending cellulitis. Pain has decreased to the area. Foot appears overall less swollen. I did discuss plan of care with patient's daughter Sarita, who is a nurse and has agreed to stay with her mother once out of quarantine to assist her. Discussed plan of care with the patient including long-term wound care and home health care. Patient understands she may have the VAC for several weeks to 2 months. She understands she will need to minimize weightbearing, ideally no weightbearing and offload the heel while in bed. Patient is having physical therapy this morning to aid in transitions. Concerned with the distance to bathroom and kitchen. She will need a bedside commode, fracture boot and wheelchair. Discharge/Plan: 1. Patient is to maintain dressing and wound vac clean dry and intact. 2. Wound vac to right foot @120mmHg medium continuous. Will need home health care for wound VAC changes: MWF and IV antibiotics. 3. Elevate on two pillows. 4. Continue antibiotics: IV Vanco. 5. Recommend PICC, IV abx x 2 weeks (if bone cultures negative, can stop after that. If positive bone culture, may need 4-6 weeks IV abx) IV antibiotic recommendation to cover for MRSA: Vanco, Dapto 6. Non weight bearing to the right lower extremity with short fracture boot and DME assistance (she has a walker). Patient is unable to use a cane or crutches as she needs to be strict nonweightbearing to the right lower extremity. Patient is unable to use crutches at all and struggles with walker long distances due to her large body habitus, morbid obesity, weak upper body and need to be off of the right heel. It is medically necessary she have a fracture boot, bedside commode and a bariatric wheelchair with elevating leg rests. 7. Plan to repeat infection labs weekly and fax to Dr. Georges and Dr. Lambert: cbc, esr, crp. 8. Stable from Podiatry stand point. Possible discha
--- NOTE | 2020-06-14 09:19 | XR_ITS ---
PROCEDURE: XR CHEST PORTABLE PICC PLAC CLINICAL HISTORY: Confirm PICC line placement COMPARISON: CR XR CHEST 2V from 06/12/2020 FINDINGS: Left upper extremity PICC line has been inserted. The tip is in good position in the region of the superior vena cava. Atelectatic changes are present in the lower lobes. Degenerative changes present in the shoulders. IMPRESSION: Left upper extremity PICC line tip in the region of the SVC Dictated by: Hollis nEglish MD 06/14/2020 14:21 Hollis English MD in [place] 06/14/2020 14:21
--- NOTE | 2020-06-14 09:30 | HMH.PTEV ---
Physical Therapy Evaluation Rehab PT IP Evaluation Start: 06/13/20 16:12 Freq: ONCE Status: Active Protocol: Document 06/14/20 09:15 ROSE (Rec: 06/14/20 09:30 [email or web address] [id number]) Subjective/History History History This is the initial IP PT evaluation for Kiara Sanchez. Pt is a 64 y/o female admitted to [facility] s/p I&D of R foot wound. Pt is diabetic and developed foot wound which required surgical intervention. Pt has surgical boot w/ NWB precautions Subjective Subjective no complaints from pt - pt very pleasant - states understanding of NWB precautions Rehab PT IP Eval Objective Appearance Patient Behavior Appropriate,Cooperative Patient Orientation Person,Place,Time,Situation Difficulty following instructions mild Speech Pattern Clear,Appropriate Ambulation Patient Able to Ambulate Yes Ambulation Observation IP General Gait Pattern Observation Antalgic Gait Ambulation Distance (feet) 6 Ambulation Assistive Device Standard Walker Ambulation Ability Supervision/Stand by Balance Ability to Arise Able, uses arms to help Sitting Balance Steady, safe Standing Balance Steady, wide stance Dynamic Sitting Balance Ability Good Dynamic Standing Balance Ability Poor Transfers Bed Transfer Ability Supervision/Stand by Chair Transfer Ability Supervision/Stand by Sit to Stand Bed Transfer Ability Supervision/Stand by Sit to Stand Chair Transfer Ability Supervision/Stand by ROM All Extremities PT ROM Status WFL MMT All Extremities PT MMT WFL Rehab PT IP prob,goals,plan Problems Date of Evaluation: 06/14/20 PT IP Problems Transfers,Gait,Other Other Pt Problem following WBing precautions will be difficult for pt Rehab Potential Rehab Potential Fair Equipment Needs Assistive Devices Standard Walker Plan PT Intervention Plan Transfers,Gait,Therapeutic Exercise PT Plan Frequency BID Duration LOS Discharge Goals Bed Transfer Ability Supervision/Stand by Sit to Stand Chair Transfer Ability Supervision/Stand by Ambulation Assistive Device Standard Walker Ambulation Distance (feet) 6 Discharge Plan PT Discharge Plan Pt would salvador li
--- NOTE | 2020-06-14 10:30 | HMH.ANESII ---
[facility] Anesthesia Record Part II Discharge Time: 16:31 Destination: Medical Surgical Department PACU nurse assessment reviewed?: Yes Patient Condition:: Good Anesthesia Complications:: None Swallowing reflex intact?: Yes Cyanosis?: No Blood Pressure: 126/80 Pulse Rate: 85 Temperature: 97.6 F Mental Status: Alert & Oriented Pain level:: 7 Nausea and/or vomitting:: None Intake, IV Amount: 0
[2020-06-14 10:31] VITALS: BP 126/80; PULSE 85; TEMP 36.4
--- NOTE | 2020-06-14 10:46 | PC.NURSE ---
PT WILL NEED A WHEELCHAIR AND BED SIDE COMMODE RATHER THAN A WALKER OR CANE DUE TO GAIT AND MOBILITY ISSUES AND DISTANCE TO THE BATHROOM IN THE HOME.
[2020-06-14 10:53] VITALS: BP 133/88; PULSE 93; RESP 20; TEMP 36.8; O2SAT 96
--- NOTE | 2020-06-14 11:18 | SW/DCPLANNER ---
Addendum entered by [facility] 06/15/20 12:33: Dosing has changed for Vanc per Milena in Pharmacy. Milena has made contact with Alicia at [facility]: Alicia has stated decision has been made to skip dose today and begin new dose tomorrow. Alicia has stated that she will inform [facility]. Patient has already discharged home. Addendum entered by [facility] 06/15/20 10:44: Per Lizandro request (Bessie/John) nursing will start services today at home (IV Vanc and apply wound vac). I have notified Alicia with [facility] to get in contact with [facility] to have medication delivered prior to beginning services. I have notified patients nurse and family is aware. This patient will discharge home today and receive IV Vanc/application of wound vac today at home via [facility] services. Addendum entered by [facility] 06/15/20 09:16: I have notified Bessie with [facility] and Alicia with [facility] that this patient will discharge home today. Alicia stated that she will arrange delivery of medication with daughter for today. Bessie estrada/ [facility] has stated that home health services will begin tomorrow and is aware that our wound vac will be removed today and [facility] will deliver wound vac and supplies to patients home today. Addendum entered by [facility] 06/14/20 15:02: Per Alicia with [facility] patients cost for medication will be $10 for two week period. I have spoke with patient and she is fine with this root. [facility] will deliver at time of discharge. [facility] will be providing home health services. Addendum entered by [facility] 06/14/20 14:20: I have spoke with Helder with [facility] and he has stated that he does NOT have a bariatric fracture boot to fit this patient. Per nurse (Barry): ankle 12 , calf (top of boot) 24 and back of heel to tip of big toe 9 . Addendum entered by [facility] 06/14/20 13:34: Bessie with [facility] stated she can accept this patient for services at time of discharge: PT/OT/retirement/wound vac care/IV antibiotics. I will follow up with Bessie once patient is medically stable for discharge. Alicia with [facility] is reviewing patient information for out of pocket cost at this time. Addendum entered by [facility] [place] 06/14/20 12:46: Patient information has also been faxed to [facility] [place] for IV Vanc: I will follow up once Alicia with [facility] has an out of pocket expense. Patient information and order will also be faxed to [facility]. Addendum entered by Shayy [facility] 06/14/20 12:13: [facility] has stated that BSC and wheel chair will be delivered to patients home per patients request. Addendum entered by [facility] [place] 06/14/20 12:10: Luzma with [facility] has stated that wheel chair and BSC will be delivered to patients home. Original Note: I have spoke with this patient regarding discharge plans. Patient intends on returning home with assistance from family. Patient understands that she will need IV antibiotics at time of discharge and will have a family member at home to be taught how to administer. I will [facility] for cost of IV Vanc at discharge. Patient will also need to be set up with home health services: wound vac care, PT/OT, nursing, IV antibiotics. Patient does not have a preference for home health agency. I have also faxed patient information/order to [facility] for a wheel chair and BSC. I will follow up with [facility] once patient information is reviewed. Patient could discharge home later today.
[2020-06-14 20:00] VITALS: BP 150/81; PULSE 80; RESP 19; TEMP 36.8; O2SAT 97
[2020-06-14 21:57] LABS: POC Glucose,Bedside 108 (70-110)
[2020-06-14 21:57] LABS: POC Glucose,Bedside 108 (70-110)
[2020-06-15] VITALS: BP 113/57; PULSE 92; RESP 18; TEMP 36.6; O2SAT 94
--- NOTE | 2020-06-15 02:21 | PC.NURSE ---
PT IS RESTING IN BED. RECEIVED PAIN MEDICATION FOR DISCOMFORT. ALERT AND ORIENTED X4. DRESSING TO RT FOOT C/D/I WITH WOUND VAC NOTED. LUNG SOUNDS CLEAR. ABDOMEN SOFT/LARGE/NON TENDER WITH HYPOACTIVE BOWEL SOUNDS. PT STATES SHE HAS NOT HAD A BOWEL MOVEMENT IN AT LEAST 1 WEEK. 2+ EDEMA NOTED TO LLE. PT GETS UP TO THE BSC WITH 1 ASSIST AND WALKER. VSS. WILL CONTINUE TO MONITOR.
[2020-06-15 04:00] VITALS: BP 129/79; PULSE 82; RESP 18; TEMP 36.6; O2SAT 95
[2020-06-15 06:00] VITALS: BMI 54.0
[2020-06-15 06:03] LABS: POC Glucose,Bedside 99 (70-110)
[2020-06-15 07:35] VITALS: BP 117/68; PULSE 96; RESP 18; TEMP 36.4; O2SAT 95
--- NOTE | 2020-06-15 08:16 | HMH.ACPN2 ---
Internal Medicine - PN: Subj *Date: 06/15/20 *Time: 08:16 Interval history: Patient states she is feeling a little bit better today. She continues to deny any respiratory symptoms. She denies pain in her foot this morning. She remains on IV antibiotics. She states she did not sleep last night due to anxiety about today. She is worried about an ice storm. She ate some of her breakfast this morning. Exam Vital signs and Labs for Last 24 Hours: Temp Pulse Resp BP Pulse Ox 97.5 F L 96 H 18 117/68 95 06/15/20 07:35 06/15/20 07:35 06/15/20 07:35 06/15/20 07:35 06/15/20 07:35 Laboratory Results - last 24 hr 06/14/20 13:51: POC Glucose 108 06/14/20 20:44: POC Glucose 108 06/15/20 05:50: POC Glucose 99 I & O for Last 24 hours: Intake & Output 06/12/20 06/13/20 06/14/20 06/15/20 11:59 11:59 11:59 11:59 Intake Total 850 / 850 1210 / 1210 720 / 720 240 / 240 Output Total 120 / 120 480 / 480 500 / 500 700 / 700 Balance 730 / 730 730 / 730 220 / 220 -460 / -460 Weight 275 lb 275 lb 0.003 oz 275 lb 9.245 oz 275 lb 2.19 oz Microbiology Reports for the Last 24 Hours: Microbiology 06/13/20 15:17 Foot,Right - Wound Surgical Biopsy Culture - Preliminary NO GROWTH AFTER 24 HOURS 06/13/20 15:17 Foot,Right - Wound Surgical Biopsy Culture - Preliminary NO GROWTH AFTER 24 HOURS 06/13/20 15:17 Foot,Right Gram Stain - Final 06/13/20 15:17 Foot,Right Wound Culture - Preliminary - Constitutional no acute distress - *Routine Respiratory Exam Present: CTA bilaterally - *Routine Cardiovascular Exam Present: RRR - *Routine Abdominal Exam Present: soft, normoactive bowel sounds. Absent: tenderness - *Routine Extremities Exam Present: edema (RLE, boot and dressing in place) - *Routine Skin Exam Present: warm. Absent: rash - *Routine Neurological Exam Present: alert, oriented X3 Assessment and Plan (1) Cellulitis of foot Status: Acute Category: Medical Code(s): L03.119 - Cellulitis of unspecified part of limb (2) COVID-19 virus infection Status: Acute Category: Medical Code(s): U07.1 - COVID-19 (3) Hypertension Status: Chronic Category: Medical Code(s): I10 - Essential (primary) hypertension (4) Hyperlipidemia Status: Chronic Category: Medical Code(s): E78.5 - Hyperlipidemia, unspecified (5) Type 2 diabetes mellitus Status: Chronic Category: Medical Code(s): E11.9 - Type 2 diabetes mellitus without complications (6) Obesity Status: Chronic Category: Medical Code(s): E66.9 - Obesity, unspecified (7) Ulcer of foot with fat layer exposed Start date: 06/13/20 Status: Acute Category: Medical Code(s): L97.502 - Non-pressure chronic ulcer of other part of unspecified foot with fat layer exposed (8) Ulcer of right heel Status: Acute Category: Medical Code(s): L97.419 - Non-pressure chronic ulcer of right heel and midfoot with unspecified severity (9) Foot abscess, right Status: Acute Category: Medical Code(s): L02.611 - Cutaneous abscess of right foot (10) Infection of wound due to methicillin resistant Staphylococcus aureus (MRSA) Status: Acute Category: Medical Code(s): A49.02 - Methicillin resistant Staphylococcus aureus infection, unspecified site - Assessment and plan all Dx Assessment and Plan for all problems:: Podiatry note reviewed. Possible discharge home today with home health will need continued IV antibiotics.
--- NOTE | 2020-06-15 08:45 | HMH.ORTHPN ---
Subjective Date: 06/15/20 Time: 08:30 Principal diagnosis: Right foot cellulitis, abscess Interval history: Patient resting comfortably up in her chair this morning she is just finished breakfast denies any pain or complaints with her right foot. Wound VAC is in place patient also was wearing her short fracture boot. I explained to her that while she is sitting in her chair or lying in bed she did not need to have the boot in place she can take it off and let her leg rest. Patient denied any fever chills or any complaints of nausea vomiting. Patient will more than likely be discharged to home today. She will be having home health see her tomorrow they will change her wound VAC in the home. Patient will follow up with us in podiatry office on June 23, 2020 at 1300. PN: Obj Ex Vital signs: Temp Pulse Resp BP Pulse Ox 97.5 F L 96 H 18 117/68 95 06/15/20 07:35 06/15/20 07:35 06/15/20 07:35 06/15/20 07:35 06/15/20 07:35 - Constitutional no acute distress, morbidly obese, cooperative - Routine HEENT Exam Head: Present: normocephalic Eye: Present: PERRL ENT: Present: mucous membranes moist - Routine Neck Exam Present: trachea midline - Routine Respiratory Exam Absent: respiratory distress - Routine Cardiovascular Exam Present: RRR - Routine Abdominal Exam Present: soft - Routine Extremities Exam Present: edema, pulses intact, normal capillary refill. Absent: calf tenderness Comments: Right foot and lower extremity edema does appear to be somewhat better this morning. Patient encouraged to keep the leg elevated to help reduce swelling. - Detailed Lower Extremity Exam Bottom foot image: 1 - Right foot dressing and wound vac clean dry and intact. Minimal serosanginous drainage in canister. There skin is warm. CFT and pedal pulses noted. Muscle strength, motor function and light touch sensation at baseline. No calf or thigh pain noted b/l. Edema appears to be somewhat better in the right foot and lower extremity. - Routine Back/Spine/Pelvis Exam Back/Spine: Present: full ROM - Routine Skin Exam Present: dry, wounds - Routine Neurological Exam Present: oriented X3 - Routine Psychiatric Exam Present: normal affect, cooperative Progress Note: A&P (1) Cellulitis of foot Status: Acute (2) COVID-19 virus infection Status: Acute (3) Hypertension Status: Chronic (4) Hyperlipidemia Status: Chronic (5) Type 2 diabetes mellitus Status: Chronic (6) Obesity Status: Chronic (7) Ulcer of foot with fat layer exposed Status: Acute (8) Ulcer of right heel Status: Acute (9) Foot abscess, right Status: Acute (10) Infection of wound due to methicillin resistant Staphylococcus aureus (MRSA) Status: Acute Assessment and Plan for All Diagnoses:: Sx 06/13/20, s/p right foot incision and drainage, ulcer deep wound debridement, foot calcaneal bone culture, biospy, foot delayed priamry closure, application of wound VAC POD #2 06/11/20, wound culture right foot: MRSA 06/13/20, Intra-op right foot cultures: Right deep wound culture, tissue culture pending Right calcaneus bone culture, bone pathology pending The outer dressing was removed and the skin looks intact with no ascending cellulitis. Wound VAC still in place with small amount of serosanguineous in the wound VAC canister. Patient denied any pain to the right foot today. The right foot and lower extremity does appear to be less swollen today. Patient had lots of questions this morning regarding her MRSA and IV antibiotics. After talking to the patient she did seem like she understood a little better what was going on and less anxious. Discussed plan of care with the patient including long-term wound care and home health care. Patient understands she may have the VAC for several weeks to 2 months. She understands she will need to minimize
--- NOTE | 2020-06-15 11:19 | HMH.DCSUM ---
General - General Admission date:: 06/11/20 Discharge date: 06/15/20 HPI HPI: Ms. Sheets is a 64 yo female who states that she has had pain on the lateral aspect of her right heel for several days. Due to her size, she is unable to see her feet. However, she was able to take a photo of it last night and saw that there was a large blister there. The blister busted this morning when she was dressing. She contacted her primary care provider who advised her to come to the emergency department. She says that she has borderline diabetes . She takes Metformin. She has recently had COVID-19. She received an infusion of monoclonal antibodies on Saturday. She has been on steroids and a Z-Eddie. She finished steroids on Saturday, 3 days ago. She does not have any shortness of breath or cough. She says her Covid symptoms were related to sinuses. She has not had a fever. She has had problems with her feet, has had blisters of her feet in the past. She previously had been seeing Dr. Lambert, outside medical sales representative at this facility, but now sees a outside medical sales representative in [facility], she cannot remember his name. She last saw him about a year ago. (Above per ER physician) The patient had x-rays of her foot which revealed no signs of osteomyelitis. It was felt she would need admission for IV antibiotics. The ER physician consulted Dr. Cox and she will be admitted and started on vancomycin. Her white blood cell count was elevated at 19.3. Her C-reactive protein was 202.3. Her renal function was mildly elevated. A wound culture has been obtained. She is currently still in the emergency room but will be admitted. Hospital Course Hospital Course: The patient's foot x-ray showed nothing acute. She was admitted and started on IV antibiotics. Podiatry was consulted. Dr. Lambert saw the patient and wanted to take her to the OR for aggressive I&D and debridement of the heel. On 06/13/2020 the patient was taken to the OR and a right foot incision and drainage along with ulcer debridement was performed. A right foot calcaneal bone biopsy was also obtained and a wound VAC was placed. Dr. Lambert felt she would need home health care for wound VAC changes on Saturday, Saturday, Saturday as well as for IV antibiotics. She recommended a PICC line and antibiotics for 2 weeks. The patient is to be nonweightbearing on the right lower extremity with a short fracture boot in place. A PICC line was ordered and placed for continued IV antibiotics. The patient's wound culture grew out MRSA. Dr. Lambert felt she was stable to be discharged home and will need to follow-up in her office in 2 weeks. By 06/15/2020, the patient was feeling better and was anxious to get home. She was stable to be discharged home on continued IV antibiotics and will follow up with Dr. Cox and Dr. Lambert. Objective Vital signs: Temp Pulse Resp BP Pulse Ox 97.5 F L 96 H 18 117/68 95 06/15/20 07:35 06/15/20 07:35 06/15/20 07:35 06/15/20 07:35 06/15/20 07:35 Narrative: - Constitutional no acute distress - *Routine HEENT Exam Head: Present: normocephalic Eye: Present: EOMI, PERRL ENT: Present: mucous membranes moist - *Routine Neck Exam Present: supple. Absent: lymphadenopathy - *Routine Respiratory Exam Present: CTA bilaterally - *Routine Cardiovascular Exam Present: RRR - *Routine Abdominal Exam Present: soft, normoactive bowel sounds. Absent: tenderness - *Routine Extremities Exam Present: edema (RLE). Absent: cyanosis, clubbing - *Routine Skin Exam Present: warm. Absent: rash Comments: right foot bandaged - *Routine Neurological Exam Present: alert, oriented X3 Results Labs on day of discharge: Labs from last 24 hours 06/15/20 06/14/20 06/14/20 05:50 20:44 13:51 POC Glucose 99 108 108 Preliminary micro results at discharge 06/13/20 15:17 Wound Culture - Preliminary Foot,Right Gram Positive Cocci 06/13/20 15:1
[2020-06-15 11:26] LABS: POC Glucose,Bedside 99 (70-110)
[2020-06-15 11:39] LABS: Vancomycin,Trough 19.6 ug/mL (5.0-10.0)
--- NOTE | 2020-06-15 12:05 | PC.NURSE ---
Removed wound vac and applied wet to dry dsg prior to d/c.
--- NOTE | 2020-06-15 12:17 | HMH.PHACONS ---
- Pharmacy Consult Date: 06/15/20 Time: 12:17 Referring provider: DR. MARCELO Reason for Consult:: VANCOMYCIN TROUGH LEVEL Allergies and ADEs:: Allergies Allergy/AdvReac Type Severity Reaction Status Date / Time No Known Allergies Allergy Verified 05/07/18 09:25 Home Medications:: Home Medications Medication Instructions Recorded Confirmed Type Lisinopril/Hydrochlorothiazide 1 tab PO DAILY 07/09/17 06/11/20 History [Lisinopril-Hctz 10-12.5 mg Tab*] Sulindac 200 mg PO BID 07/09/17 06/11/20 History cholecalciferol (vitamin D3) 125 1 cap PO DAILY 30 Days #30 cap 04/22/18 06/11/20 History mcg (5,000 unit) capsule cyanocobalamin (vitamin B-12) 1 cap PO DAILY 30 Days #30 tab 04/22/18 06/11/20 History 1,000 mcg tablet Metformin HCl [Glucophage 500mg 250 mg PO DAILY 06/11/20 06/12/20 History Tablet] Height: 1.52 m Weight: 124.8 kg Laboratory Results:: Laboratory Results - last 24 hr 06/14/20 13:51: POC Glucose 108 06/14/20 20:44: POC Glucose 108 06/15/20 05:50: POC Glucose 99 06/15/20 10:38: POC Glucose 99 06/15/20 10:51: Vancomycin Trough 19.6 H Medical History: Reports:: Diabetes Mellitus Type 2, Gastroesophageal Reflux Disease(GERD), Hyperlipidemia, Hypertension Denies:: Asthma, Cancer, Chronic Obstructive Pulmonary Disease (COPD), Diabetes Mellitus Type 1, MRSA, Renal Disease, Renal Insufficiency Assessment and Plan (1) Cellulitis of foot Status: Acute Category: Medical Code(s): L03.119 - Cellulitis of unspecified part of limb (2) COVID-19 virus infection Status: Acute Category: Medical Code(s): U07.1 - COVID-19 (3) Hypertension Status: Chronic Category: Medical Code(s): I10 - Essential (primary) hypertension (4) Hyperlipidemia Status: Chronic Category: Medical Code(s): E78.5 - Hyperlipidemia, unspecified (5) Type 2 diabetes mellitus Status: Chronic Category: Medical Code(s): E11.9 - Type 2 diabetes mellitus without complications (6) Obesity Status: Chronic Category: Medical Code(s): E66.9 - Obesity, unspecified (7) Ulcer of foot with fat layer exposed Start date: 06/13/20 Status: Acute Category: Medical Code(s): L97.502 - Non-pressure chronic ulcer of other part of unspecified foot with fat layer exposed (8) Ulcer of right heel Status: Acute Category: Medical Code(s): L97.419 - Non-pressure chronic ulcer of right heel and midfoot with unspecified severity (9) Foot abscess, right Status: Acute Category: Medical Code(s): L02.611 - Cutaneous abscess of right foot (10) Infection of wound due to methicillin resistant Staphylococcus aureus (MRSA) Status: Acute Category: Medical Code(s): A49.02 - Methicillin resistant Staphylococcus aureus infection, unspecified site - Assessment and plan all Dx Assessment and Plan for all problems:: VANCOMYCIN TROUGH LEVEL = 19.6 BASED ON VANCOMYCIN TROUGH LEVEL AND PATIENT FACTORS, RECOMMEND DECREASING VANCOMYCIN DOSE TO 2 GM IV Q24H. PATIENT CAN HAVE A DOSE TODAY. PATIENT IS BEING DISCHARGED AND WILL BE FOLLOWED BY HOME HEALTH.
== END 2020-06-15 11:30 | disposition home health service (06) ==
LOC: ER 11:41 → 2ND 14:31
PROVIDERS: Podiatrist; Admitting Provider Family Medicine; Emergency Provider Emergency Medicine; PCP Nurse Practitioner; Visit Provider Family Medicine
PROC: 0JBQ0ZZ Excision of Right Foot Subcutaneous Tissue and Fascia, Open Approach (ICD-10-PCS; CPT 11044; principal; 2020-06-13 12:45)
DX: E11.621 Type 2 diabetes mellitus with foot ulcer (principal); L03.115 Cellulitis of right lower limb; L97.412 Non-pressure chronic ulcer of right heel and midfoot with fat layer exposed; Z79.84 Long term (current) use of oral hypoglycemic drugs; E66.9 Obesity, unspecified; Z68.43 Body mass index [BMI] 50.0-59.9, adult; E03.9 Hypothyroidism, unspecified; I10 Essential (primary) hypertension; L02.611 Cutaneous abscess of right foot; U07.1 COVID-19; B95.62 Methicillin resistant Staphylococcus aureus infection as the cause of diseases classified elsewhere
CPT/HCPCS: 11042; 11044; 11047 ×2; 36415; 36569; 71045; 71046; 73630; 80048; 80053; 80202; 82962; 83605; 85007; 85025; 85651; 86140; 87040; 87070; 87075; 87077; 87186; 87205; 88307; 88311; 93005; 96365; 97161; 99284; C1751; G0378; J0330; J2405; J3370

== ENCOUNTER → 2020-07-14 08:48 | Outpatient (CLI) | payer MEDICARE, MEDICAID, SELFPAY ==
--- NOTE | 2020-07-14 08:54 | XR_ITS ---
PROCEDURE: XR FOOT WT BEARING RT 3V CLINICAL INDICATION: foot ulcer COMPARISON: CR [id number] XR foot wt bearing LT 3V from 07/09/2017 CR XR FOOT RT MIN 3V from 06/11/2020 CR XR FOOT RT MIN 3V from 06/13/2020 FINDINGS: There is diffuse osteopenia with moderate pes planus. Small calcaneal spurs present. The joint spaces are well-preserved. No significant degenerative/arthritic changes. No erosive changes evident. Other findings:No acute fracture or dislocation. No bony destructive process. IMPRESSION: Osteopenia with pes planus Dictated by: Hollis English MD 07/14/2020 17:24 Hollis English MD in [place] 07/14/2020 17:24
== END ==
PROVIDERS: PCP Family Medicine; Visit Provider Podiatrist
DX: L02.611 Cutaneous abscess of right foot (principal); Z98.890 Other specified postprocedural states
CPT/HCPCS: 73630

== ENCOUNTER → 2020-07-28 09:16 | Outpatient (CLI) | payer MEDICARE, MEDICAID, SELFPAY ==
[2020-07-28 10:05] LABS: Basophils # 0.1 K/mm3 (0-0.2); Basophils % 0.7 % (0.1-2.0); Eosinophils # 0.4 K/mm3 (0.0-0.4); Eosinophils % 4.7 % (0.1-12.0); Hematocrit 35.8 % (37.0-47.0); Hemoglobin 11.7 g/dL (12.2-16.2); Lymphocytes # 0.8 K/mm3 (0.7-4.5); Lymphocytes % 10.8 % (10-50); Mean Corpuscular HGB Conc 32.6 g/dL (31.8-35.4); Mean Corpuscular Hemoglobin 30.3 pg (27.0-31.2); Mean Corpuscular Volume 93.2 fl (81-99); Mean Platelet Volume 9.5 fl (7.4-10.4); Monocytes # 0.4 K/mm3 (0.1-1.0); Monocytes % 5.3 % (1.7-9.3); Neutrophils % 78.3 % (37.0-80.0); Platelet Count 198 K/mm3 (142-424); Red Blood Count 3.84 M/mm3 (4.20-5.40); Red Cell Distribution Width 14.3 % (11.5-17.5); White Blood Count 7.6 K/mm3 (4.8-10.8)
[2020-07-28 10:30] LABS: Erythrocyte Sedimentation Rate 25 mm/hr (0-30)
[2020-07-28 10:44] LABS: Chloride 103 mmol/L (98-107)
[2020-07-28 10:45] LABS: Potassium 4.6 mmoL/L (3.5-5.1); Sodium 136 mmol/L (136-145)
[2020-07-28 10:47] LABS: Alanine Aminotransferase 86 U/L (12-78); Albumin Level 3.8 g/dl (3.5-5.0); Alkaline Phosphatase 146 U/L (38-126); Aspartate Amino Transferase 61 U/L (14-36); Bilirubin,Total 1.3 mg/dl (0.2-1.3); Blood Urea Nitrogen 44 mg/dl (7-17); Estimated Glomerular Filt Rate 38 ml/min (>60); GFR (African American) 46 ML/MIN (>60)
[2020-07-28 10:48] LABS: Calcium 9.9 mg/dl (8.4-10.2); Carbon Dioxide 25 mmol/L (22.0-30.0); Glucose 113 mg/dl (74-100); Total Protein,Serum 6.3 g/dl (6.3-8.2)
[2020-07-28 10:53] LABS: C-Reactive Protein 9.8 mg/L (0-4)
[2020-07-28 17:27] LABS: Albumin/Globulin Ratio 1.5 (1.1-1.8); Globulin 2.5 g/dL (1.3-3.2)
== END ==
PROVIDERS: Visit Provider Podiatrist
DX: A49.02 Methicillin resistant Staphylococcus aureus infection, unspecified site (principal); L97.419 Non-pressure chronic ulcer of right heel and midfoot with unspecified severity; Z98.890 Other specified postprocedural states
CPT/HCPCS: 36415; 80053; 85025; 85651; 86140

== ENCOUNTER → 2020-09-15 14:45 | Outpatient (CLI) | payer MEDICARE, MEDICAID, SELFPAY ==
[2020-09-15 15:23] LABS: Basophils # 0.1 K/mm3 (0-0.2); Basophils % 0.9 % (0.1-2.0); Eosinophils # 0.4 K/mm3 (0.0-0.4); Eosinophils % 5.1 % (0.1-12.0); Hematocrit 35.4 % (37.0-47.0); Hemoglobin 11.4 g/dL (12.2-16.2); Lymphocytes # 1.4 K/mm3 (0.7-4.5); Lymphocytes % 17.4 % (10-50); Mean Corpuscular HGB Conc 32.2 g/dL (31.8-35.4); Mean Corpuscular Hemoglobin 29.9 pg (27.0-31.2); Mean Corpuscular Volume 92.7 fl (81-99); Mean Platelet Volume 9.7 fl (7.4-10.4); Monocytes # 0.3 K/mm3 (0.1-1.0); Monocytes % 4.1 % (1.7-9.3); Neutrophils # 5.7 K/mm3 (1.8-7.8); Neutrophils % 72.4 % (37.0-80.0); Platelet Count 184 K/mm3 (142-424); Red Blood Count 3.81 M/mm3 (4.20-5.40); Red Cell Distribution Width 14.5 % (11.5-17.5); White Blood Count 7.8 K/mm3 (4.8-10.8)
[2020-09-15 15:38] LABS: Alanine Aminotransferase 24 U/L (12-78); Albumin Level 4.1 g/dl (3.5-5.0); Albumin/Globulin Ratio 1.7 (1.1-1.8); Alkaline Phosphatase 60 U/L (38-126); Anion Gap 10.2 mEq/L (5-15); Aspartate Amino Transferase 30 U/L (14-36); Bilirubin,Total 0.6 mg/dl (0.2-1.3); Blood Urea Nitrogen 36 mg/dl (7-17); Calcium 9.5 mg/dl (8.4-10.2); Carbon Dioxide 28 mmol/L (22.0-30.0); Chloride 106 mmol/L (98-107); Estimated Glomerular Filt Rate 35 ml/min (>60); GFR (African American) 42 ML/MIN (>60); Globulin 2.4 g/dL (1.3-3.2); Glucose 95 mg/dl (74-100); Potassium 4.2 mmoL/L (3.5-5.1); Sodium 140 mmol/L (136-145); Total Protein,Serum 6.5 g/dl (6.3-8.2)
[2020-09-15 15:43] LABS: C-Reactive Protein 1.8 mg/L (0-4)
[2020-09-15 15:58] LABS: Erythrocyte Sedimentation Rate 22 mm/hr (0-30)
== END ==
PROVIDERS: Visit Provider Nurse Practitioner
DX: L03.119 Cellulitis of unspecified part of limb (principal); Z98.890 Other specified postprocedural states
CPT/HCPCS: 36415; 80053; 85025; 85651; 86140

== ENCOUNTER → 2022-05-08 09:44 | Outpatient (CLI) | payer MEDICARE, MEDICAID, SELFPAY ==
--- NOTE | 2022-05-08 09:48 | MM_ITS ---
PROCEDURE INFORMATION: Exam: MG Bilateral Screening 3D Mammography Exam date and time: 05/08/2022 9:49 AM Age: 66 years old Clinical indication: Screening examination TECHNIQUE: Imaging protocol: Bilateral Screening tomosynthesis and 2D mammography including computer-aided detection (CAD) when performed. COMPARISON: 1. MG SCBI MM Dig screening mamm BI w/CAD 02/04/2018 8:33 AM 2. MG DMSB DIG MAMM-SCREEN DANIELLE W/CAD 09/04/2016 10:31 AM 3. MG DMSB DIG MAMM-SCREEN DANIELLE 04/21/2013 4:31 PM 4. MG DMSB DIGITAL MAMM-SCREEN BILATERAL 01/29/2011 11:37 AM FINDINGS: MAMMOGRAPHY: Breast composition: There are scattered areas of fibroglandular density. Mass: Stable benign-appearing subcentimeter nodules are present in the bilateral breast. No new or morphologically suspicious nodule has developed to suggest malignancy. Architectural distortion: No new or suspicious architectural distortion. Calcifications: No new or suspicious calcifications are present Asymmetric density: No new or suspicious asymmetric density is present Skin thickening: None. Axillary adenopathy: None. IMPRESSION: No mammographic evidence of malignancy. Recommend annual screening mammography unless otherwise clinically indicated. ASSESSMENT: BI-RADS category 2: Benign
== END ==
PROVIDERS: PCP Family Medicine; Visit Provider Nurse Practitioner Family
DX: Z12.31 Encounter for screening mammogram for malignant neoplasm of breast (principal)
CPT/HCPCS: 77063; 77067

== ENCOUNTER → 2022-12-25 10:37 | Outpatient (CLI) | payer MEDICARE, MEDICAID, SELFPAY ==
[2022-12-25 11:12] LABS: Basophils % 0.5 % (0.1-2.0); Eosinophils # 0.4 K/mm3 (0.0-0.4); Eosinophils % 6.2 % (0.1-12.0); Hematocrit 37.5 % (37.0-47.0); Hemoglobin 11.8 g/dL (12.2-16.2); Lymphocytes # 1.2 K/mm3 (0.7-4.5); Lymphocytes % 18.6 % (10-50); Mean Corpuscular HGB Conc 31.4 g/dL (31.8-35.4); Mean Corpuscular Hemoglobin 29.7 pg (27.0-31.2); Mean Corpuscular Volume 94.5 fl (81-99); Mean Platelet Volume 9.3 fl (7.4-10.4); Monocytes # 0.2 K/mm3 (0.1-1.0); Monocytes % 3.1 % (1.7-9.3); Neutrophils # 4.7 K/mm3 (1.8-7.8); Neutrophils % 71.5 % (37.0-80.0); Platelet Count 176 K/mm3 (142-424); Red Blood Count 3.97 M/mm3 (4.20-5.40); Red Cell Distribution Width 13.4 % (11.5-17.5); White Blood Count 6.5 K/mm3 (4.8-10.8)
[2022-12-25 11:37] LABS: Hemoglobin A1C 5.6 % (4.0-6.0)
[2022-12-25 12:21] LABS: Alanine Aminotransferase 16 U/L (12-78); Albumin Level 4.1 g/dl (3.5-5.0); Albumin/Globulin Ratio 1.6 (1.1-1.8); Alkaline Phosphatase 98 U/L (38-126); Anion Gap 16.2 mEq/L (5-15); Aspartate Amino Transferase 22 U/L (14-36); Bilirubin,Total 0.5 mg/dl (0.2-1.3); Blood Urea Nitrogen 24 mg/dl (7-17); Calcium 9.4 mg/dl (8.4-10.2); Carbon Dioxide 24 mmol/L (22.0-30.0); Chloride 104 mmol/L (98-107); Chol/HDL Ratio 4.8 (1-3.5); Cholesterol 208 mg/dl (140-200); Estimated Glomerular Filt Rate 41 ml/min (>60); GFR (African American) 49 ML/MIN (>60); Globulin 2.6 g/dL (1.3-3.2); Glucose 91 mg/dl (74-100); HDL Cholesterol 43 mg/dl (40-60); Potassium 5.2 mmoL/L (3.5-5.1); Sodium 139 mmol/L (136-145); Total Protein,Serum 6.7 g/dl (6.3-8.2); Triglycerides 138 mg/dl (30-150); VLDL Cholesterol 28 mg/dL (0-40)
[2022-12-25 12:32] LABS: Direct LDL Cholesterol 126.02 mg/dL (100-129)
== END ==
PROVIDERS: PCP Nurse Practitioner Family; Visit Provider Nurse Practitioner Family
DX: E78.5 Hyperlipidemia, unspecified (principal); E11.59 Type 2 diabetes mellitus with other circulatory complications; Z79.84 Long term (current) use of oral hypoglycemic drugs; K21.9 Gastro-esophageal reflux disease without esophagitis; I10 Essential (primary) hypertension
CPT/HCPCS: 36415; 80053; 80061; 83036; 85025

== ENCOUNTER 2023-01-29 21:05 | Observation (INO) | payer MEDICARE, MEDICAID, SELFPAY ==
[2023-01-29] VITALS (7 sets, daily range): BP systolic 112–141; BP diastolic 53–78; PULSE 79–98; RESP 11–20; TEMP 36.5; O2SAT 93–97; BMI 51.2
--- NOTE | 2023-01-29 21:59 | ECG_ITS ---
APPROVED REPORT Exam: Resting ECG HR:76 bpm ECG Measurements Heart Rate 76 AXES GA 160 P 42 QRSd 86 QRS 9 QT 358 T 52 QTc 388 Conclusion SINUS RHYTHM LOW QRS VOLTAGE IN PRECORDIAL LEADS [QRS DEFLECTION < 1.0 mV IN CHEST LEADS] BORDERLINE ECG UNCONFIRMED REPORT Electronically signed by : Supa Shelley MD 01/31/2023 17:21:23
[2023-01-29 22:25] LABS: Basophils # 0.1 K/mm3 (0-0.2); Basophils % 0.8 % (0.1-2.0); Chloride 107 mmol/L (98-107); Eosinophils # 0.4 K/mm3 (0.0-0.4); Eosinophils % 4.6 % (0.1-12.0); Hematocrit 40.2 % (37.0-47.0); Hemoglobin 12.4 g/dL (12.2-16.2); Lymphocytes # 1.5 K/mm3 (0.7-4.5); Lymphocytes % 18.9 % (10-50); Mean Corpuscular HGB Conc 30.8 g/dL (31.8-35.4); Mean Corpuscular Hemoglobin 29.1 pg (27.0-31.2); Mean Corpuscular Volume 94.4 fl (81-99); Mean Platelet Volume 10.9 fl (7.4-10.4); Monocytes # 0.5 K/mm3 (0.1-1.0); Neutrophils # 5.7 K/mm3 (1.8-7.8); Neutrophils % 69.7 % (37.0-80.0); Platelet Count 203 K/mm3 (142-424); Red Blood Count 4.26 M/mm3 (4.20-5.40); Red Cell Distribution Width 13.6 % (11.5-17.5); Sodium 139 mmol/L (136-145); White Blood Count 8.1 K/mm3 (4.8-10.8)
--- NOTE | 2023-01-29 22:27 | PC.NURSE ---
Critical K+ is 6.0.Call received from lab.
[2023-01-29 22:28] LABS: Alanine Aminotransferase 16 U/L (12-78); Albumin Level 3.7 g/dl (3.5-5.0); Albumin/Globulin Ratio 1.3 (1.1-1.8); Alkaline Phosphatase 71 U/L (38-126); Aspartate Amino Transferase 23 U/L (14-36); Bilirubin,Total 0.3 mg/dl (0.2-1.3); Blood Urea Nitrogen 30 mg/dl (7-17); Carbon Dioxide 27 mmol/L (22.0-30.0); Creatinine Clearance Estimated 28 mL/min (50-200); Estimated Glomerular Filt Rate 34 ml/min (>60); GFR (African American) 42 ML/MIN (>60); Globulin 2.9 g/dL (1.3-3.2); Total Protein,Serum 6.6 g/dl (6.3-8.2)
[2023-01-29 22:29] LABS: Calcium 9.2 mg/dl (8.4-10.2); Glucose 109 mg/dl (74-100)
--- NOTE | 2023-01-29 23:53 | HMH.EDGENADL ---
Discharge Plan Disposition Patient Disposition: Admitted Condition: Good Prescriptions Prescriptions: No Action citalopram 10 mg tablet 10 mg PO acetaminophen 325 mg capsule 325 mg PO QID PRN furosemide 20 mg tablet 20 mg PO DAILY spironolactone 25 mg tablet 25 mg PO DAILY triamcinolone acetonide 0.025 % cream topical Patient Comments: APPLY TOPICALLY TO AFFECTED AREA 3 TIMES DAILY nystatin 100,000 unit/gram cream 1 applic topical TID Qty: 30 1RF doxycycline hyclate 100 mg tablet 100 mg PO BID Qty: 20 0RF sulindac 200 mg tablet 200 mg PO BID Qty: 60 4RF cyanocobalamin (vitamin B-12) 1,000 mcg tablet 1,000 mcg PO DAILY 30 Days Qty: 30 4RF omeprazole 20 mg capsule,delayed release(DR/EC) 20 mg PO DAILY Qty: 30 4RF lisinopril-hydrochlorothiazide 10-12.5 mg tablet 1 tab PO DAILY Qty: 30 4RF folic acid 1 mg tablet 1 mg PO DAILY Qty: 30 4RF metformin 500 mg tablet 250 mg PO DAILY Qty: 90 1RF cholecalciferol (vitamin D3) 125 mcg (5,000 unit) capsule 125 mcg PO DAILY 30 Days Qty: 30 5RF Referrals Follow up/Referrals: Virginia Hebert APRN [Primary Care Provider] - See instructions Clinical Impressions Clinical Impression: Acute hyperkalemia Discharge ED Provider: Talib Jacob Adult HPI General Chief complaint: Recheck/Abnormal Lab/Rx Stated complaint: Lab called and said to come because of lab work up Time Seen by Provider: 01/29/23 23:53 Mode of Arrival: Ambulatory Source of Information: Patient Limitations: No Limitations Description of Symptoms (Recalled from ER Triage Doc. by RN): Patient went to PCP today for weeping edema in right lower ankle. Blood work showed K+ 6 so patient was advised to go to ED. History of Present Illness HPI narrative: This 67-year-old female with hypertension, hyperlipidemia, diabetes, history of MRSA in the right foot presents to the emergency department with concerns of hyperkalemia. Patient went to her primary care physician this morning because she was having clear leakage from her right ankle. They performed basic labs and her primary physician called her this evening stating she needed to go to the ER for evaluation of her potassium which was elevated. Her potassium was 6.0 with her primary care physician and they were concerned about cardiac sequela so she was instructed to come to the emergency department immediately. Patient states she is not having any palpitations, shortness of breath, dizziness, lightheadedness, or chest pain. Was empirically started on doxycycline by her primary care physician earlier today for the weeping edema in the right ankle. Patient does take spironolactone and furosemide and states she is compliant with all her medications. Related Data Home Medications Medication Instructions Recorded Confirmed citalopram 10 mg tablet 10 mg PO 08/11/20 01/29/23 acetaminophen 325 mg capsule 325 mg PO QID PRN 08/25/20 01/29/23 furosemide 20 mg tablet 20 mg PO DAILY 08/25/20 01/29/23 spironolactone 25 mg tablet 25 mg PO DAILY 01/16/22 01/29/23 triamcinolone acetonide 0.025 % g topical 07/17/22 01/29/23 topical cream Previous Rx's Medication Instructions Recorded sulindac 200 mg tablet 200 mg PO BID #60 tabs 01/22/22 cyanocobalamin (vitamin B-12) 1,000 mcg PO DAILY Supplement 30 02/02/22 1,000 mcg tablet days #30 tabs folic acid 1 mg tablet 1 mg PO DAILY #30 tabs 02/09/22 lisinopril 10 1 tab PO DAILY #30 tabs 02/09/22 mg-hydrochlorothiazide 12.5 mg tablet omeprazole 20 mg capsule,delayed 20 mg PO DAILY #30 caps 02/09/22 release metformin 500 mg tablet 250 mg PO DAILY #90 tabs 03/21/22 cholecalciferol (vitamin D3) 125 125 mcg PO DAILY Supplement 30 04/13/22 mcg (5,000 unit) capsule days #30 caps doxycycline hyclate 100 mg tablet 100 mg PO BID #20 tabs 01/29/23 nystatin 100,000 unit/gram topical 1 applic topical TID #30 grams 01/29/23 cream Allergie
[2023-01-30] VITALS (9 sets, daily range): BP systolic 113–134; BP diastolic 65–87; PULSE 68–85; RESP 16–22; TEMP 36.5–36.9; O2SAT 94–97; BMI 51.1
--- NOTE | 2023-01-30 00:28 | PC.NURSE ---
Report called to [facility]
--- NOTE | 2023-01-30 00:40 | PC.NURSE ---
pt to floor via wheel chair 0039.
--- NOTE | 2023-01-30 01:01 | EXP.HP ---
History of Present Illness *Admission Date: 01/30/23 *History of present illness: This 67-year-old female with hypertension, hyperlipidemia, diabetes, history of MRSA in the right foot presents to the emergency department with concerns of hyperkalemia after PCP this morning advised to go ER for evaluation. Patient had a follow up her right ankle. They performed basic labs and her primary physician called her this evening stating she needed to go to the ER for evaluation of her potassium which was elevated. Her potassium was 6.0 with her primary care physician and they were concerned about cardiac sequela so she was instructed to come to the emergency department immediately. Patient states she is not having any palpitations, shortness of breath, dizziness, lightheadedness, or chest pain. Was empirically started on doxycycline by her primary care physician earlier today for the weeping edema in the right ankle. Patient does take spironolactone and furosemide and states she is compliant with all her medications. Admitted [facility] Disclaimer: The information contained in this section may have been updated after the patient was seen, as this information can be updated by other users. Medical History (Updated 01/30/23 @ 05:36 by Cristóbal Hewitt APRN) Cellulitis of right lower extremity GERD (gastroesophageal reflux disease) MRSA (methicillin resistant staph aureus) culture positive Social History (Updated 01/30/23 @ 01:04 by Kenrick León RN) Smoking Status: Never smoker second hand exposure: No alcohol intake: never substance use type: denies use current occupational status: employed Travel in the last 8 weeks: None household members: none housing: house current occupational exposures/hazards: No caffeine: Yes Review of Systems Constitutional Constitutional: Denies headache(s) and Denies weakness ENT Ears, Nose, Mouth, and Throat: Denies dizziness and Denies headache(s) *Musculoskeletal Musculoskeletal: Denies numbness and Denies tingling *Neurologic Neurologic: Denies dizziness, Denies headache(s), Denies numbness, Denies tingling and Denies weakness Meds Home Medications and Allergies Home Medications Medication Instructions Recorded Confirmed Type citalopram 10 mg tablet 10 mg PO DAILY Mood 08/11/20 01/30/23 History acetaminophen 325 mg capsule 325 mg PO QIDP PRN Mild Pain 08/25/20 01/30/23 History (Scale Score 1-4) furosemide 20 mg tablet 20 mg PO DAILY Fluid 08/25/20 01/30/23 History cyanocobalamin (vitamin B-12) 1,000 mcg PO DAILY Supplement 30 02/02/22 01/30/23 Rx 1,000 mcg tablet days #30 tabs cholecalciferol (vitamin D3) 50 50 mcg PO DAILY Supplement 01/30/23 01/30/23 History mcg (2,000 unit) capsule (Vitamin D3) doxycycline hyclate 100 mg tablet 100 mg PO BID Infection 01/30/23 01/30/23 History folic acid 1 mg tablet 1 mg PO DAILY Supplement 01/30/23 01/30/23 History lisinopril 10 1 tab PO DAILY High Blood Pressure 01/30/23 01/30/23 History mg-hydrochlorothiazide 12.5 mg tablet metformin 500 mg tablet 250 mg PO DAILY Diabetes 01/30/23 01/30/23 History nystatin 100,000 unit/gram topical 1 applic topical TID Skin Condition 01/30/23 01/30/23 History cream spironolactone 25 mg tablet 25 mg PO DAILY Fluid 01/30/23 01/30/23 History sulindac 200 mg tablet 200 mg PO BID Pain 01/30/23 01/30/23 History New Prescriptions to Start Prescriptions: Allergies Allergy/AdvReac Type Severity Reaction Status Date / Time No Known Allergies Allergy Verified 01/29/23 13:40 Exam Data for Last 24 hours Vital signs and Labs for Last 24 Hours: Temp Pulse Resp BP Pulse Ox O2 Del Method 97.7 F 80 16 131/81 97 Room Air 01/30/23 00:28 01/30/23 00:28 01/30/23 00:28 01/30/23 00:28 01/29/23 23:45 01/29/23 23:45 Laboratory Results - last 24 hr 01/29/23 21:36: WBC 8.1, RBC 4.26, Hgb 12.4, Hct 40.2, MCV 94.4, MCH 29.1, MCHC 30.8 L, RDW 13.6, Plt Count 203, MPV 1
[2023-01-30 05:35] LABS: POC Glucose,Bedside 95 (70-110)
--- NOTE | 2023-01-30 05:49 | PC.NURSE ---
no acute changes since arriving to the floor this AM. right LE welinda, wilman placed underneath. c/o uyen horse's in feet and states she takes tums at home - notified hospitalist and got a one time dose for tums, pt stated it has helped her sx. bed locked/lowest position.
[2023-01-30 06:41] LABS: Alanine Aminotransferase 13 U/L (12-78); Albumin Level 3.6 g/dl (3.5-5.0); Albumin/Globulin Ratio 1.4 (1.1-1.8); Alkaline Phosphatase 72 U/L (38-126); Anion Gap 14.3 mEq/L (5-15); Aspartate Amino Transferase 24 U/L (14-36); Bilirubin,Total 0.4 mg/dl (0.2-1.3); Blood Urea Nitrogen 25 mg/dl (7-17); Calcium 9.2 mg/dl (8.4-10.2); Carbon Dioxide 23 mmol/L (22.0-30.0); Chloride 107 mmol/L (98-107); Creatinine Clearance Estimated 31 mL/min (50-200); Estimated Glomerular Filt Rate 41 ml/min (>60); GFR (African American) 49 ML/MIN (>60); Globulin 2.6 g/dL (1.3-3.2); Glucose 98 mg/dl (74-100); Magnesium 1.7 mg/dl (1.6-2.3); Potassium 5.3 mmoL/L (3.5-5.1); Sodium 139 mmol/L (136-145); Total Protein,Serum 6.2 g/dl (6.3-8.2)
[2023-01-30 06:42] LABS: Eosinophils # 0.3 K/mm3 (0.0-0.4); Lymphocytes # 1.1 K/mm3 (0.7-4.5); Mean Corpuscular HGB Conc 30.8 g/dL (31.8-35.4); Mean Platelet Volume 9.2 fl (7.4-10.4); Monocytes # 0.3 K/mm3 (0.1-1.0); Neutrophils # 3.5 K/mm3 (1.8-7.8); White Blood Count 5.2 K/mm3 (4.8-10.8)
[2023-01-30 06:53] LABS: Basophils % 0.6 % (0.1-2.0); Eosinophils % 5.4 % (0.1-12.0); Hematocrit 34.9 % (37.0-47.0); Lymphocytes % 21.4 % (10-50); Mean Corpuscular Hemoglobin 29.8 pg (27.0-31.2); Mean Corpuscular Volume 96.7 fl (81-99); Monocytes % 5.1 % (1.7-9.3); Neutrophils % 67.6 % (37.0-80.0); Platelet Count 167 K/mm3 (142-424); Red Blood Count 3.61 M/mm3 (4.20-5.40); Red Cell Distribution Width 13.7 % (11.5-17.5)
[2023-01-30 06:56] LABS: Hemoglobin 10.8 g/dL (12.2-16.2)
--- NOTE | 2023-01-30 09:32 | HMH.PHAINT1 ---
Pharmacy Intervention Comments: MEDICATION RECONCILIATION COMPLETED ON PATIENT USING EXTERNAL FILL HISTORY FROM PHARMACY. -CECILE ROCHA, CAYLAD
[2023-01-30 11:22] LABS: POC Glucose,Bedside 97 (70-110)
--- NOTE | 2023-01-30 14:08 | HMH.PTEV ---
Physical Therapy Evaluation Rehab PT IP Evaluation Start: 01/30/23 13:42 Freq: ONCE Status: Active Protocol: Document 01/30/23 14:02 PHORORALIA (Rec: 01/30/23 14:07 PHORNE [id number]) Subjective/History History History 67 yowf adm to [facility] with hyperkalemia. She has hx of R LE cellulitis with MRSA+. Also found to have MARTIN. She reports hx of chronic B LE edema, R worse than L, for many years.She is generally independent with all mobility. Subjective Subjective Pt has no c/o this pm, feeling better overall. yesterday my leg was leaking, but today it 's not. New diagnosis of cancer in past 12 No months? Rehab PT IP Eval Objective Appearance Patient Behavior Appropriate Patient Orientation Person,Place,Time Difficulty following instructions none Speech Pattern Clear Ambulation Patient Able to Ambulate Yes Ambulation Observation IP General Gait Pattern Observation Wide Based Gait Ambulation Distance (feet) 30 Ambulation Assistive Device Straight Cane Ambulation Ability Independent Balance Ability to Arise Able, uses arms to help Sitting Balance Steady, safe Standing Balance Steady, wide stance Dynamic Sitting Balance Ability Good Dynamic Standing Balance Ability Good Transfers Bed Transfer Ability Independent Chair Transfer Ability Independent Sit to Stand Bed Transfer Ability Independent Sit to Stand Chair Transfer Ability Independent Rehab PT IP prob,goals,plan Problems Date of Evaluation: 01/30/23 Discharge Plan PT Discharge Plan Pt presents with acute edema ( likely CVI) on chronic lymphedema. in B LE. Recommend Outpatient Lymphedema clinic treatment once stable for d/c. She is appropriate to return home once medically stable for d/c. Eval Complexity Eval Charge Codes 38965 - High Complexity PHYSICIAN CERTIFICATION: I certify the specified therapy services for Kiara Sheets are required, authorized, and reviewed every 30 days.
[2023-01-30 16:17] LABS: POC Glucose,Bedside 89 (70-110)
--- NOTE | 2023-01-30 17:16 | PC.NURSE ---
Pt is A/O x4, on RA, and on a diabetic diet. Pt has tolerated diet well and remained within range requiring no insulin coverage this shift. Pt potassium levels have decreased since last night. Pt ambulates with minimal assistance and stand by. Pt denies pain and offers no complaints at this time.
[2023-01-30 21:40] LABS: POC Glucose,Bedside 98 (70-110)
[2023-01-31] VITALS (7 sets, daily range): BP systolic 102–165; BP diastolic 56–84; PULSE 60–90; RESP 18–19; TEMP 36.6–36.9; O2SAT 95–97; BMI 51.9
[2023-01-31 06:32] LABS: POC Glucose,Bedside 95 (70-110)
[2023-01-31 07:15] LABS: Anion Gap 12.1 mEq/L (5-15); Blood Urea Nitrogen 24 mg/dl (7-17); Calcium 9.5 mg/dl (8.4-10.2); Carbon Dioxide 24 mmol/L (22.0-30.0); Chloride 107 mmol/L (98-107); Creatinine Clearance Estimated 29 mL/min (50-200); Estimated Glomerular Filt Rate 37 ml/min (>60); GFR (African American) 45 ML/MIN (>60); Glucose 94 mg/dl (74-100); Potassium 5.1 mmoL/L (3.5-5.1); Sodium 138 mmol/L (136-145)
[2023-01-31 11:29] LABS: POC Glucose,Bedside 98 (70-110)
--- NOTE | 2023-01-31 13:55 | EXP.PN ---
Subjective *Date: 01/31/23 *Time: 13:55 Interval history: Patient is seen and examined at bedside today. I am accompanied by nursing staff. The patient is accompanied by her daughter who is a nurse via phone. We discussed her chronic lymphedema and chronic venous insufficiency with physical therapy evaluation yesterday. We discussed her outpatient medications including aldosterone antagonist, loop diuretic, metformin, thiazide diuretic and NSAID use. We discussed the importance of discontinuing routine NSAID use, aldosterone antagonist and thiazide diuretic to improve renal function. Her morning labs identify normal sodium with potassium 5.1 and creatinine 1.4. It appears her baseline creatinine is 1.3. Exam Data for Last 24 hours Vital signs and Labs for Last 24 Hours: Temp Pulse Resp BP Pulse Ox O2 Del Method 98 F 78 18 102/56 L 95 Room Air 01/31/23 12:00 01/31/23 12:00 01/31/23 12:00 01/31/23 12:00 01/31/23 12:00 01/31/23 12:58 Laboratory Results - last 24 hr 01/30/23 15:50: POC Glucose 89 01/30/23 21:07: POC Glucose 98 01/31/23 06:21: Sodium 138, Potassium 5.1, Chloride 107, Carbon Dioxide 24, Anion Gap 12.1, BUN 24 H, Creatinine 1.40 H, Estimated Creat Clear 29, Estimated GFR 37 L, Est GFR ( Amer) 45 L, Glucose 94, Calcium 9.5 01/31/23 06:23: POC Glucose 95 01/31/23 10:53: POC Glucose 98 I & O for Last 24 hours: Intake & Output 01/28/23 01/29/23 01/30/23 01/31/23 23:59 23:59 23:59 23:59 Intake Total 1097 / 1837 1520 / 1520 Output Total 0 / 0 0 / 0 Balance 1097 / 1837 1520 / 1520 Weight 127.006 kg 126.099 kg 128 kg Constitutional Constitutional: no acute distress, morbidly obese and cooperative *Routine HEENT Exam Head: Present normocephalic and atraumatic Eye: Present EOMI and PERRL ENT: Present mucous membranes moist *Routine Respiratory Exam Respiratory: Present CTA bilaterally, normal respiratory effort and symmetric chest movement *Routine Cardiovascular Exam Cardiovascular: Present RRR, Normal S1 and Normal S2 *Routine Extremities Exam Extremities: Present edema, full ROM, pulses intact and normal capillary refill Comments: Lymphedema and chronic venous insufficiency with varicosities bilaterally *Routine Skin Exam Skin: Present warm; Absent rash *Routine Neurological Exam Neurological: Present alert, oriented X3, moving all extremities, vision grossly intact, hearing grossly intact and normal speech; Absent sensory deficit or motor deficit Routine Psychiatric Exam Psychiatric: Present normal affect, normal thought process, cooperative, good insight and good judgment Assessment and Plan *Assessment and plan (1) Acute hyperkalemia: Status: Acute Category: Medical Code(s): E87.5 - Hyperkalemia (2) [id number] kidney injury: Status: Acute Qualifiers: Acute renal failure type: unspecified Chronic kidney disease stage: stage 3 (moderate) Chronic kidney disease stage 3 subtype: stage 3a (GFR 45-59) Qualified Code(s): N17.9 - Acute kidney failure, unspecified; N18.31 - Chronic kidney disease, stage 3a Category: Medical Code(s): N17.9 - Acute kidney failure, unspecified; N18.9 - Chronic kidney disease, unspecified (3) GERD (gastroesophageal reflux disease): Status: Acute Qualifiers: Esophagitis presence: esophagitis presence not specified Qualified Code(s): K21.9 - Gastro-esophageal reflux disease without esophagitis Category: Medical Code(s): K21.9 - Gastro-esophageal reflux disease without esophagitis (4) Diabetes mellitus: Status: Acute Qualifiers: Diabetes mellitus type: type 2 Diabetes mellitus long term acute care registered nurse insulin use: without chcf use Diabetes mellitus complication status: with other specified complication Qualified Code(s): E11.69 - Type 2 diabetes mellitus with other specified complication Category: Medical Code(s): E11.9 - Type 2 diab
--- NOTE | 2023-01-31 15:59 | PC.NURSE ---
Pt alert and oriented x4, Pt continues to deny pain. Pt blood glucose levels have remained within normal range and has not required coverage this shift. Pt bilateral lower extremities also remain swollen with redness. Pt IV to right hand started leaking IV was removed and place a new IV in the left forearm, Pt tolerated well IV is flushing and infusing well. Pt potassium levels continue to trend downwards. Pt seems very pleasant and denies needs at this time.
[2023-01-31 16:01] LABS: POC Glucose,Bedside 79 (70-110)
[2023-01-31 20:37] LABS: POC Glucose,Bedside 105 (70-110)
[2023-02-01] VITALS: BP 110/67; PULSE 76; PULSE 80; RESP 18; TEMP 36.6; O2SAT 97
[2023-02-01 04:00] VITALS: BP 104/71; PULSE 70; PULSE 82; RESP 18; TEMP 36.5; O2SAT 97; BMI 51.0
[2023-02-01 05:34] LABS: POC Glucose,Bedside 98 (70-110)
[2023-02-01 06:45] LABS: Basophils % 0.6 % (0.1-2.0); Eosinophils # 0.3 K/mm3 (0.0-0.4); Eosinophils % 6.8 % (0.1-12.0); Hematocrit 30.8 % (37.0-47.0); Hemoglobin 9.4 g/dL (12.2-16.2); Lymphocytes # 1.1 K/mm3 (0.7-4.5); Lymphocytes % 28.8 % (10-50); Mean Corpuscular HGB Conc 30.6 g/dL (31.8-35.4); Mean Corpuscular Hemoglobin 29.3 pg (27.0-31.2); Mean Corpuscular Volume 95.9 fl (81-99); Monocytes # 0.2 K/mm3 (0.1-1.0); Monocytes % 5.4 % (1.7-9.3); Neutrophils # 2.3 K/mm3 (1.8-7.8); Neutrophils % 58.3 % (37.0-80.0); Platelet Count 145 K/mm3 (142-424); Red Blood Count 3.21 M/mm3 (4.20-5.40); Red Cell Distribution Width 13.6 % (11.5-17.5); White Blood Count 3.9 K/mm3 (4.8-10.8)
[2023-02-01 06:56] LABS: Anion Gap 9.2 mEq/L (5-15); Blood Urea Nitrogen 20 mg/dl (7-17); Calcium 6.4 mg/dl (8.4-10.2); Carbon Dioxide 19 mmol/L (22.0-30.0); Chloride 116 mmol/L (98-107); Creatinine Clearance Estimated 40 mL/min (50-200); Estimated Glomerular Filt Rate 71 ml/min (>60); GFR (African American) 86 ML/MIN (>60); Glucose 75 mg/dl (74-100); Potassium 3.2 mmoL/L (3.5-5.1); Sodium 141 mmol/L (136-145)
[2023-02-01 08:00] VITALS: BP 120/70; PULSE 80; RESP 18; TEMP 36.4; O2SAT 96
--- NOTE | 2023-02-01 09:36 | EXP.DC.SUM ---
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 Patient had a follow up her right ankle. They performed basic labs and her primary physician called her this evening stating she needed to go to the ER for evaluation of her potassium which was elevated. Her potassium was 6.0 with her primary care physician and they were concerned about cardiac sequela so she was instructed to come to the emergency department immediately. Patient states she is not having any palpitations, shortness of breath, dizziness, lightheadedness, or chest pain. Was empirically started on doxycycline by her primary care physician earlier today for the weeping edema in the right ankle. Patient does take spironolactone and furosemide and states she is compliant with all her medications. 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 patient asymptomatic. ED evaluation identified MARTIN. Denies history of CKD, however per chart reviewed GFR has been low since 2020. Hyperkalemia, confirmed. EKG reviewed, currently on normal SR. no arrhythmia. Problems addressed as follows: Acute kidney injury Hyperkalemia Telemetry monitoring ED ECG reviewed IV fluid resuscitation completed Lokelma therapy noted Trending electrolytes, potassium levels and creatinine with improvement noted Discharge potassium normal, Discharge Creatinine 0.8 Outpatient medications including loop diuretic therapy, PRINCESS inhibitor, metformin, spironolactone, NSAID and thiazide diuretic noted Discontinue Sulindac, metformin, furosemide, thiazide diuretic and aldosterone antagonist Transitioning PRINCESS inhibitor to ARB Avoiding NSAID therapy Chronic venous insufficiency Lymphedema PT/wound care evaluation Outpatient management Diabetes Routine blood sugar monitoring Hemoglobin A1c 5.6% Patient advised to discontinue metformin Consistent carbohydrate diet BMI 51/OHS/VIVIAN Nutrition education Calorie appropriate diet Concerns for sleep apnea Outpatient echocardiogram and sleep study recommended Complicates all aspects of care The patient tolerated her IV fluid resuscitation with improved laboratory studies noted. We have recommended therapeutic intervention for her lower extremity lymphedema and chronic venous insufficiency with physical therapy. She has been advised to see an computer support specialist for degenerative joint disease of her knees. She will discontinue her NSAID therapy and transition to Tylenol with nightly hydrocodone. We have recommended discontinuation of loop diuretic therapy, spironolactone and thiazide diuretic for her lower extremity symptomatology. I have recommended follow-up with cardiology to assess for echocardiogram and VIVIAN. The patient voiced understanding. I spoke to her daughter Jina JULIEN by phone prior to discharge. I spent 35 minutes in [id number] time with the patient and nursing staff concerning the discharge process. We discussed the admitting diagnoses and hospital course. We discussed identified improvement and the patient's desire to be discharged. We reviewed inpatient studies and imaging. The patient voiced understanding on the importance of follow-up with her primary care provider and specialist(s). The patient plans to be compliant with the medication regimen prescribed and follow-up appointments. She understands that she can return to the emergency department with any sudden changes or concerns. Exam Data for Last 24 hours Vital signs and Labs for Last 24 Hours: Temp Pulse Resp BP Pulse Ox O2 Del
[2023-02-01 09:58] LABS: Vitamin B12 588 pg/mL (239-931)
[2023-02-01 10:12] LABS: Iron 48 ug/dL (37-170)
[2023-02-01 10:21] LABS: Total Iron Binding Capacity 273 ug/dL (265-497)
--- NOTE | 2023-02-05 08:52 | CARE MANAGER ---
Patient called back. She states she is doing well. she is aware of her follow up appointment and has her new medications. Denies questions or concerns at this time.JULIEN Keating
== END 2023-02-01 10:21 | disposition home or self-care (01) ==
LOC: ER 01-30 00:13 → 2ND 01-30 00:29
PROVIDERS: Emergency Medicine; Nurse Practitioner Family; Admitting Provider Family Medicine; Emergency Provider Emergency Medicine; PCP Nurse Practitioner; Visit Provider Family Medicine
DX: E87.5 Hyperkalemia (principal); N17.9 Acute kidney failure, unspecified; N18.31 Chronic kidney disease, stage 3a; K21.9 Gastro-esophageal reflux disease without esophagitis; E11.69 Type 2 diabetes mellitus with other specified complication; I12.9 Hypertensive chronic kidney disease with stage 1 through stage 4 chronic kidney disease, or unspecified chronic kidney disease; E78.5 Hyperlipidemia, unspecified; E66.01 Morbid (severe) obesity due to excess calories; Z68.43 Body mass index [BMI] 50.0-59.9, adult; Z79.899 Other long term (current) drug therapy; E11.22 Type 2 diabetes mellitus with diabetic chronic kidney disease
CPT/HCPCS: 36415; 80048; 80053; 82607; 82962; 83540; 83550; 83735; 85025; 93005; 97163; 99285; G0378

== ENCOUNTER → 2023-01-29 23:36 | Outpatient (CLI) | payer MEDICARE, MEDICAID, SELFPAY ==
[2023-01-29 18:40] LABS: Basophils # 0.1 K/mm3 (0-0.2); Basophils % 0.6 % (0.1-2.0); Eosinophils # 0.2 K/mm3 (0.0-0.4); Eosinophils % 2.6 % (0.1-12.0); Hematocrit 39.7 % (37.0-47.0); Hemoglobin 12.1 g/dL (12.2-16.2); Lymphocytes % 12.5 % (10-50); Mean Corpuscular HGB Conc 30.4 g/dL (31.8-35.4); Mean Corpuscular Hemoglobin 29.3 pg (27.0-31.2); Mean Corpuscular Volume 96.2 fl (81-99); Mean Platelet Volume 11.4 fl (7.4-10.4); Monocytes # 0.4 K/mm3 (0.1-1.0); Monocytes % 4.4 % (1.7-9.3); Neutrophils # 6.5 K/mm3 (1.8-7.8); Neutrophils % 79.9 % (37.0-80.0); Platelet Count 210 K/mm3 (142-424); Red Blood Count 4.12 M/mm3 (4.20-5.40); Red Cell Distribution Width 13.7 % (11.5-17.5); White Blood Count 8.1 K/mm3 (4.8-10.8)
[2023-01-29 19:04] LABS: Alanine Aminotransferase 16 U/L (12-78); Albumin Level 3.9 g/dl (3.5-5.0); Albumin/Globulin Ratio 1.5 (1.1-1.8); Alkaline Phosphatase 82 U/L (38-126); Aspartate Amino Transferase 21 U/L (14-36); Bilirubin,Total 0.3 mg/dl (0.2-1.3); Blood Urea Nitrogen 29 mg/dl (7-17); Calcium 9.5 mg/dl (8.4-10.2); Carbon Dioxide 23 mmol/L (22.0-30.0); Chloride 107 mmol/L (98-107); Estimated Glomerular Filt Rate 37 ml/min (>60); GFR (African American) 45 ML/MIN (>60); Globulin 2.6 g/dL (1.3-3.2); Glucose 120 mg/dl (74-100); Sodium 140 mmol/L (136-145); Total Protein,Serum 6.5 g/dl (6.3-8.2)
[2023-01-29 19:55] LABS: Anion Gap 16.3 mEq/L (5-15); Potassium 6.3 mmoL/L (3.5-5.1)
== END ==
PROVIDERS: PCP Nurse Practitioner; Visit Provider Nurse Practitioner
DX: L03.115 Cellulitis of right lower limb (principal); R60.0 Localized edema; B96.89 Other specified bacterial agents as the cause of diseases classified elsewhere
CPT/HCPCS: 80053; 85025; 87070; 87077; 87186; 87205

== ENCOUNTER → 2023-02-11 10:24 | Outpatient (CLI) | payer MEDICARE, MEDICAID, SELFPAY ==
[2023-02-11 19:52] LABS: Alanine Aminotransferase 16 U/L (12-78); Albumin Level 4.1 g/dl (3.5-5.0); Albumin/Globulin Ratio 1.4 (1.1-1.8); Alkaline Phosphatase 77 U/L (38-126); Anion Gap 9.3 mEq/L (5-15); Aspartate Amino Transferase 23 U/L (14-36); Basophils % 0.6 % (0.1-2.0); Bilirubin,Total 0.4 mg/dl (0.2-1.3); Blood Urea Nitrogen 17 mg/dl (7-17); Calcium 9.6 mg/dl (8.4-10.2); Carbon Dioxide 26 mmol/L (22.0-30.0); Chloride 111 mmol/L (98-107); Eosinophils # 0.2 K/mm3 (0.0-0.4); Eosinophils % 3.2 % (0.1-12.0); Estimated Glomerular Filt Rate 55 ml/min (>60); GFR (African American) 67 ML/MIN (>60); Globulin 2.9 g/dL (1.3-3.2); Glucose 98 mg/dl (74-100); Hematocrit 41.7 % (37.0-47.0); Hemoglobin 12.7 g/dL (12.2-16.2); Lymphocytes # 1.3 K/mm3 (0.7-4.5); Lymphocytes % 20.4 % (10-50); Mean Corpuscular HGB Conc 30.5 g/dL (31.8-35.4); Mean Corpuscular Hemoglobin 29.1 pg (27.0-31.2); Mean Corpuscular Volume 95.4 fl (81-99); Mean Platelet Volume 11.3 fl (7.4-10.4); Monocytes # 0.2 K/mm3 (0.1-1.0); Monocytes % 3.6 % (1.7-9.3); Neutrophils # 4.6 K/mm3 (1.8-7.8); Neutrophils % 72.1 % (37.0-80.0); Platelet Count 203 K/mm3 (142-424); Potassium 4.3 mmoL/L (3.5-5.1); Red Blood Count 4.37 M/mm3 (4.20-5.40); Red Cell Distribution Width 13.8 % (11.5-17.5); Sodium 142 mmol/L (136-145); White Blood Count 6.4 K/mm3 (4.8-10.8)
[2023-02-11 21:29] LABS: Hemoglobin A1C 5.4 % (4.0-6.0)
== END ==
PROVIDERS: PCP Nurse Practitioner; Visit Provider Nurse Practitioner
DX: E11.9 Type 2 diabetes mellitus without complications (principal)
CPT/HCPCS: 80053; 83036; 85025

== ENCOUNTER 2023-08-20 07:14 | Outpatient (CLI) | payer MEDICARE, MEDICAID, SELFPAY ==
[2023-08-20 19:40] LABS: Alanine Aminotransferase 15 U/L (12-78); Albumin Level 4.1 g/dl (3.5-5.0); Albumin/Globulin Ratio 1.7 (1.1-1.8); Alkaline Phosphatase 69 U/L (38-126); Anion Gap 11.4 mEq/L (5-15); Aspartate Amino Transferase 24 U/L (14-36); Bilirubin,Total 0.7 mg/dl (0.2-1.3); Blood Urea Nitrogen 32 mg/dl (7-17); Carbon Dioxide 29 mmol/L (22.0-30.0); Chloride 105 mmol/L (98-107); Chol/HDL Ratio 3.8 (1-3.5); Cholesterol 186 mg/dl (140-200); Estimated Glomerular Filt Rate 49 ml/min (>60); GFR (African American) 59 ML/MIN (>60); Globulin 2.4 g/dL (1.3-3.2); Glucose 96 mg/dl (74-100); HDL Cholesterol 49 mg/dl (40-60); Potassium 4.4 mmoL/L (3.5-5.1); Sodium 141 mmol/L (136-145); Total Protein,Serum 6.5 g/dl (6.3-8.2); Triglycerides 89 mg/dl (30-150); VLDL Cholesterol 18 mg/dL (0-40)
[2023-08-20 19:51] LABS: Direct LDL Cholesterol 96.55 mg/dL (100-129)
== END 2023-08-20 23:59 | disposition home or self-care (01) ==
LOC: LAB.DROPOF 08-22 07:14
PROVIDERS: PCP Nurse Practitioner; Visit Provider Nurse Practitioner
DX: E11.9 Type 2 diabetes mellitus without complications (principal); I10 Essential (primary) hypertension; N18.9 Chronic kidney disease, unspecified; Z79.84 Long term (current) use of oral hypoglycemic drugs; Z79.899 Other long term (current) drug therapy
CPT/HCPCS: 80053; 80061; 84443

== ENCOUNTER 2024-01-14 11:45 | Outpatient (CLI) | payer MEDICARE, MEDICAID, SELFPAY ==
[2024-01-14 12:19] LABS: Basophils # 0.1 K/mm3 (0-0.2); Basophils % 1.2 % (0.1-2.0); Eosinophils # 0.2 K/mm3 (0.0-0.4); Eosinophils % 3.6 % (0.1-12.0); Hematocrit 43.2 % (37.0-47.0); Hemoglobin 13.6 g/dL (12.2-16.2); Lymphocytes # 1.3 K/mm3 (0.7-4.5); Lymphocytes % 24.1 % (10-50); Mean Corpuscular HGB Conc 31.4 g/dL (31.8-35.4); Mean Corpuscular Hemoglobin 30.3 pg (27.0-31.2); Mean Corpuscular Volume 96.5 fl (81-99); Mean Platelet Volume 9.4 fl (7.4-10.4); Monocytes # 0.2 K/mm3 (0.1-1.0); Monocytes % 3.8 % (1.7-9.3); Neutrophils # 3.7 K/mm3 (1.8-7.8); Neutrophils % 67.4 % (37.0-80.0); Platelet Count 204 K/mm3 (142-424); Red Blood Count 4.48 M/mm3 (4.20-5.40); Red Cell Distribution Width 13.7 % (11.5-17.5); White Blood Count 5.5 K/mm3 (4.8-10.8)
[2024-01-14 12:29] LABS: Alanine Aminotransferase 14 U/L (12-78); Albumin Level 3.8 g/dl (3.5-5.0); Albumin/Globulin Ratio 1.4 (1.1-1.8); Alkaline Phosphatase 60 U/L (38-126); Anion Gap 6.4 mEq/L (5-15); Aspartate Amino Transferase 21 U/L (14-36); Bilirubin,Total 0.6 mg/dl (0.2-1.3); Blood Urea Nitrogen 25 mg/dl (7-17); Calcium 9.3 mg/dl (8.4-10.2); Carbon Dioxide 31 mmol/L (22.0-30.0); Chloride 104 mmol/L (98-107); Chol/HDL Ratio 3.1 (1-3.5); Cholesterol 171 mg/dl (140-200); Estimated Glomerular Filt Rate 62 ml/min (>60); GFR (African American) 75 ML/MIN (>60); Globulin 2.7 g/dL (1.3-3.2); Glucose 93 mg/dl (74-100); HDL Cholesterol 55 mg/dl (40-60); Potassium 4.4 mmoL/L (3.5-5.1); Sodium 137 mmol/L (136-145); Total Protein,Serum 6.5 g/dl (6.3-8.2); Triglycerides 68 mg/dl (30-150); VLDL Cholesterol 14 mg/dL (0-40)
[2024-01-14 12:39] LABS: Direct LDL Cholesterol 95.05 mg/dL (100-129)
[2024-01-14 13:18] LABS: Vitamin B12 992 pg/mL (239-931)
[2024-01-14 14:38] LABS: 25-OH Vitamin D, Total 54.4 ng/mL (30-100)
== END 2024-01-14 23:59 | disposition home or self-care (01) ==
LOC: LAB 11:47
PROVIDERS: PCP Psychiatry & Neurology Sleep Medicine; Visit Provider Nurse Practitioner
DX: E11.9 Type 2 diabetes mellitus without complications (principal); N18.9 Chronic kidney disease, unspecified; E55.9 Vitamin D deficiency, unspecified; Z79.85 Long-term (current) use of injectable non-insulin antidiabetic drugs; Z68.42 Body mass index [BMI] 45.0-49.9, adult
CPT/HCPCS: 36415; 80053; 80061; 82306; 82607; 85025

== ENCOUNTER 2024-07-07 09:58 | Outpatient (CLI) | payer MEDICARE, MEDICAID, SELFPAY ==
[2024-07-07 20:37] LABS: Creatinine,Urine Random 124 mg/dL (Not Estab.)
[2024-07-07 20:38] LABS: Microalbumin < 6.000 mg/L (0-16.7)
[2024-07-07 21:15] LABS: Albumin Level 4.1 g/dl (3.5-5.0); Chloride 102 mmol/L (98-107); Potassium 5.1 mmoL/L (3.5-5.1); Sodium 137 mmol/L (136-145)
[2024-07-07 21:17] LABS: Blood Urea Nitrogen 29 mg/dl (7-17); Estimated Glomerular Filt Rate 62 ml/min (>60); GFR (African American) 75 ML/MIN (>60)
[2024-07-07 21:18] LABS: Alanine Aminotransferase 14 U/L (12-78); Albumin/Globulin Ratio 1.7 (1.1-1.8); Alkaline Phosphatase 69 U/L (38-126); Anion Gap 11.1 mEq/L (5-15); Aspartate Amino Transferase 19 U/L (14-36); Bilirubin,Total 0.7 mg/dl (0.2-1.3); Calcium 9.4 mg/dl (8.4-10.2); Carbon Dioxide 29 mmol/L (22.0-30.0); Chol/HDL Ratio 2.8 (1-3.5); Cholesterol 152 mg/dl (140-200); Globulin 2.4 g/dL (1.3-3.2); Glucose 90 mg/dl (74-100); HDL Cholesterol 55 mg/dl (40-60); Total Protein,Serum 6.5 g/dl (6.3-8.2); Triglycerides 64 mg/dl (30-150); VLDL Cholesterol 13 mg/dL (0-40)
[2024-07-07 21:29] LABS: Direct LDL Cholesterol 78.57 mg/dL (100-129)
[2024-07-07 21:45] LABS: Thyroid Stimulating Hormone 1.51 uIU/mL (0.465-4.68)
[2024-07-08 00:24] LABS: Hemoglobin A1C 5.4 % (4.0-6.0)
== END 2024-07-07 23:59 | disposition home or self-care (01) ==
LOC: LAB.DROPOF 07-08 09:59
PROVIDERS: PCP Nurse Practitioner; Visit Provider Nurse Practitioner
DX: E11.9 Type 2 diabetes mellitus without complications (principal); I10 Essential (primary) hypertension; E78.5 Hyperlipidemia, unspecified
CPT/HCPCS: 80053; 80061; 82043; 82570; 83036; 84443

== ENCOUNTER 2024-12-23 19:42 | Outpatient (CLI) | payer MEDICARE, MEDICAID, SELFPAY ==
--- OUTSIDE RECORDS SUMMARY | 2024-12-08 10:45 | XMS_ITS | Encounter Summary ---
Author Organization [facility] Address [address] [place] [address] Care Team Providers Care Tour Sales Representative Name Role Phone Rah Mauricio Primary Care Provider [phone] Reason for Visit * Reason Comments Follow-up Injections Follow-up Injections Encounter Details Date Type Department Care Team (Latest Contact Info) Description 12/08/2024 10:45 AM EDT Office Visit [facility] [address] [place], [place] [id number] Raphael Wylie APRN [address] [place], [place] [phone] Primary osteoarthritis of both knees (Primary Dx) Social History Tobacco Use Types Packs/Day Years Used Date Smoking Tobacco: Never Passive Smoke Exposure: Past Smokeless Tobacco: Never Alcohol Use Standard Drinks/Week Comments Not Currently 0 (1 standard drink = 0.6 oz pur e alcohol) Comments No Sex and Gender Information Value Date Recorded Sex Assigned at Not on file Legal Sex Female 9:49 AM EDT Gender Identity Not on file Sexual Orientation Not on file documented as of this encounter Progress Notes * Raphael Wylie APRN - 12/08/2024 10:45 AM EDT Images from the original note were not included. [facility] [address] [place], [place] [phone] [place], [place] [phone] [place], [place] Kiara Sheets 1955 Date of Visit: 12/08/2024 Chief Complaint: Chief Complaint Patient presents with Left Knee - Follow-up, Injections Right Knee - Follow-up, Injections HISTORY: The patient comes in for a recheck on the Bilateral Knee. The last injections provided herwith relief. The patient would like an injection today. PHYSICAL EXAMINATION: Physical examination is unchanged from previous. IMPRESSION: Severe bilateral knee osteoarthritis PLAN: He recently completed a course of oral antibiotics after having a tooth extracted. Advised the patient is recommended to be off antibiotics for 2 weeks prior to undergoing the injection. Will hold off on the injection today and plan to see the patient back in 1 week. At that time we will planfor bilateral knee cortisone injections. The patient knows to contact our office with any questions or concerns before their next appointment and we will be happy to address them urgently. All questions were answered. DME Summary No orders found for display The supervising/collaborating provider for the technical component of the x-rays is Dr. Agarwal. Please note that this vanstone machine operator was created using voice recognition software. Any errors are unintentional, and may be due to voice recognition vanstone machine operator. Cosigned by Fredy Agarwal MD at 12/09/2024 11:13 AM EDT documented in this encounter Plan of Treatment Upcoming Encounters Date Type Department Care Team (Late st Contact Info) Description 03/02/2025 10:45 AM EDT [facility] [address] [facility] [address] [place] [address] Raphael Wylie APRN [address] [place], [place] [phone] 07/27/2025 12:00 PM EDT Office Visit [facility] Nephrology [place] [address] [place] [address] Omar Morillo MD [address] [place] [id number] 09/07/2025 11:00 AM EDT Office Visit [facility] [address] [place] [address] Maikel King DO [address] [place] [address] documented as of this encounter Visit Diagnoses Diagnosis Primary osteoarthritis of both knees- Primary Primary localized osteoarthrosis, lower leg documented in this encounter Historical Medications * This list may reflect changes made after this encounter. amoxicillin (AMOXIL) 500 mg Oral Capsule Take 500 mg by mouth 3 times daily. for 10 days 11/19/2024 added in this encounter Care Teams Tour Sales Representative Relationship Specialty Start Date End Date Rah Mauricio [address] [place] [address] PCP - General Family Medicine 06/26/16 documented as of this encounter
--- OUTSIDE RECORDS SUMMARY | 2024-12-15 09:15 | XMS_ITS | Encounter Summary ---
Author Organization [facility] Address [address] [place] [address] Care Team Providers Care Accounting Systems Manager Name Role Phone Rah Mauricio Primary Care Provider [phone] Reason for Visit * Reason Comments Follow-up Injections Follow-up Injections Encounter Details Date Type Department Care Team (Latest Contact Info) Description 12/15/2024 9:15 AM EDT Office Visit [facility] [address] [place], [place] [phone] Raphael Wylie APRN [address] [place], [place] [phone] Primary osteoarthritis of both knees (Primary Dx) [...] Progress Notes * Raphael Wylie APRN - 12/15/2024 9:15 AM EDT Images from the original note were not included. [facility] [address] [place], [place] [phone] [place], [place] [phone]) [place], [place] Kiara Sheets 1955 Date of Visit: 12/15/2024 Chief Complaint: Chief Complaint Patient presents with Left Knee - Follow-up, Injections Right Knee - Follow-up, Injections HISTORY: The patient comes in for a recheck on the Bilateral Knee. The patient would like an injection today. PHYSICAL EXAMINATION: Physical examination is unchanged from previous. IMPRESSION: Severe bilateral knee osteoarthritis PLAN: At this point we will go ahead and proceed with the injections. The patient knows to contact our office with any questions or concerns before their next appointment and we will be happy to address them urgently. All questions were answered. PROCEDURE: Verbal and written consent was obtained for bilateral knee corticosteroid injections. The patient understands there is a risk for infection which may require surgery. In addition, they mayonly get temporary relief or no relief of their symptoms. The patient is advised to call the officeof any signs of infection immediately. The patient was also advised to watch their blood sugars if they have diabetes. See procedure note below. DME Summary No orders found for display The supervising/collaborating provider for the technical component of the x-rays is Dr. Agarwal. Please note that this quality control microbiology supervisor was created using voice recognition software. Any errors are unintentional, and may be due to voice recognition quality control microbiology supervisor. Cosigned by Fredy Agarwal MD at 12/16/2024 11:33 AM EDT * Nicolle Pavon MA - 12/15/2024 9:15 AM EDTAssociated Order(s): Large Joint Injection/Arthrocentesis: bilateral knee Large Joint Injection/Arthrocentesis: bilateral knee on 12/15/2024 9:15 AM Indications: pain Details: 22 G needle, anterolateral approach Medications (Right): 2 mL BUPivacaine HCl 0.25 % (2.5 mg/mL); 40 mg triamcinolone acetonide 40 mg/mL Medications (Left): 2 mL BUPivacaine HCl 0.25 % (2.5 mg/mL); 40 mg triamcinolone acetonide 40 mg/mL Outcome: tolerated well, no immediate complications Procedure, treatment alternatives, risks and benefits explained, specific risks discussed. Consent was given by the patient. Immediately prior to procedure a time out was called to verify the correctpatient, procedure, equipment, learning support teacher and site/side marked as required. Patient was prepped and draped in the usual sterile fashion. documented in this encounter Plan of Treatment Upcoming Encounters Date Type Department Care Team (Late st Contact Info) Description 03/02/2025 10:45 AM EDT Office Visit [facility] [address] [facility] [address] [place] [address] Raphael Wylie, JOHN [address] [place], [place] [phone] 07/27/2025 12:00 PM EDT Office Visit [facility] Nephrology [place] [address] [phone] Omar Morillo MD [address] [address] 09/07/2025 11:00 AM EDT Office Visit [facility] [address] [place] [phone] Maikel King DO [address] [place], [place] [phone] documented as of this encounter Procedures Procedure Name Priority Date/Time Associated Diagnosis Comments NE ARTHROCENTESIS LARGE JOINT W/O US BILATERAL Routine 12/15/2024 9:15 AM EDT Primary osteoarthritis of both knees documented in this encounter Results * NE ARTHROCENTESIS LARGE JOINT W/O US BILATERAL (12/15/2024 9:15 AM EDT) Narrative [facility] - 12/15/2024 9:15 AM EDT Nicolle Pavon MA 12/15/2024 10:19 AM Large Joint Injection/Arthrocentesis: bilateral knee on 12/15/2024 9:15 AM Indications: pain Details: 22 G needle, anterolateral approach Medications (Right): 2 mL BUPivacaine HCl 0.25 % (2.5 mg/mL); 40 mg triamcinolone acetonide 40 mg/mL Medications (Left): 2 mL BUPivacaine HCl 0.25 % (2.5 mg/mL); 40 mg triamcinolone acetonide 40 mg/mL Outcome: tolerated well, no immediate complications Procedure, treatment alternatives, risks and benefits explained, specific risks discussed. Consent was given by the patient. Immediately prior to procedure a time out was called to verify the correct patient, procedure, equipment, learning support teacher and site/side marked as required. Patient was prepped and draped in the usual sterile fashion. Raphael Wylie PARTICLEBOARD FACTORY WORKER PROCEDURE/MINOR SURGICAL O RDERABLES Final Result [facility] documented in this encounter Visit Diagnoses Diagnosis Primary osteoarthritis of both knees- Primary Primary localized osteoarthrosis, lower leg documented in this encounter Administered Medications Inactive Administered Medications - up to 1 most recent administrations Medication Order MAR Action Action Date Dose Rate Site BUPivacaine HCl (MARCAINE) 0.25 % (2.5 mg/mL) injection 2 mL 2 mL, Intra-articular, ONCE PRN, 1 dose, Starting on Sat12/15/24 at 0915, Until Sat12/15/24 at 0915, Dx: 1. Primary osteoarthritis of both kneesIndications:Primary osteoarthritis of both knees Given 12/15/2024 9:15 AM EDT 2 mL Left Knee BUPivacaine HCl (MARCAINE) 0.25 % (2.5 mg/mL) injection 2 mL 2 mL, Intra-articular, ONCE PRN, 1 dose, Starting on Sat12/15/24 at 0915, Until Sat12/15/24 at 0915, Dx: 1. Primary osteoarthritis of both kneesIndications:Primary osteoarthritis of both knees Given 12/15/2024 9:15 AM EDT 2 mL Right Knee triamcinolone acetonide (KENALOG-40) injection 40 mg 40 mg, Intra-articular, ONCE PRN, 1 dose, Starting on Sat12/15/24 at 0915, Until Sat12/15/24 at 0915, Dx: 1. Primary osteoarthritis of both kneesIndications:Primary osteoarthritis of both knees Given 12/15/2024 9:15 AM EDT 40 mg Left Knee triamcinolone acetonide (KENALOG-40) injection 40 mg 40 mg, Intra-articular, ONCE PRN, 1 dose, Starting on Sat12/15/24 at 0915, Until Sat12/15/24 at 0915, Dx: 1. Primary osteoarthritis of both kneesIndications:Primary osteoarthritis of both knees Given 12/15/2024 9:15 AM EDT 40 mg Right Knee documented in this encounter Care Teams Accounting Systems Manager Relationship Specialty Start Date End Date Rah Mauricio [address] [place] [address] [facility] [address] [place] [address] PCP - General Family Medicine 06/26/16 documented as of this encounter
--- OUTSIDE RECORDS SUMMARY | 2024-12-23 19:47 | XMS_ITS | Clinical Summary ---
Author Organization [facility] Address [address] [place] [phone] Phone Care Team Providers Care Coding Support Specialist Name Role Phone Unavailable Unavailable Conditions or Problems No information available. Medications No information available. Medications Administered No information available. Allergies, Adverse Reactions, Alerts No information available. Results No information available. Plan of Care No information available. Procedures No information available. Vital Signs No information available. Immunizations No information available. Advance Directives No information available.
--- OUTSIDE RECORDS SUMMARY | 2024-12-23 19:48 | XMS_ITS ---
Author Organization The @ [facility] Care Team Providers Care Kitchen Assistant Name Role Phone Sara Mcnally Unavailable Unavailable Paige, Bahar Unavailable Unavailable Raquel Owen Unavailable Unavailable Bae, Melina Unavailable Unavailable Allergies and adverse reactions No Known Allergies Care Team Name Role Address Phone Organization Dates Raquel Owen PCP [address] [place], [address], [facility] (Office): : : The @ Sandra 08/23/2020 - 09/02/2020 Sara Mcnally [address] [place], [place], [facility], [facility] (Office): The @ Sandra 08/23/2020 - 09/02/2020 Bahar Paige [address] [place], [place], [facility], [facility] (Office): : The @ Sandra 08/23/2020 - 09/02/2020 Melina Bae [address] [place], [facility], [facility] (Office): The @ Sandra 08/23/2020 - 09/02/2020 Mental Status Section Date Assessment Total Score Description 09/02/2020 BIMS 15 cognitively int act CAM 0 No delirium ind icated PHQ-9 02 minimal depress ion 08/26/2020 BIMS 15 cognitively int act CAM 0 No delirium ind icated PHQ-9 02 minimal depress ion Problems Problem # Description Date of onset Resolved Date Code CodeSystem Concern Status 1 ACUTE CYSTITIS WITHOUT HEMATURIA 08/24/[address] active 2 ACUTE KIDNEY FAILURE, UNSPECIFIED 08/24/[address] active 3 ANXIETY DISORDER, UNSPECIFIED 08/24/[address] active 4 BACTEREMIA 08/24/[address] active 5 CUTANEOUS ABSCESS OF RIGHT FOOT 08/24/[address] active 6 DIFFICULTY IN WALKING, NOT ELSEWHERE CLASSIFIED 08/24/[address] active 7 ELEVATION OF LEVELS OF LIVER TRANSAMINASE LEVELS 08/24/[address] active 8 ESSENTIAL (PRIMARY) HYPERTENSION 08/24/[address] active 9 KLEBSIELLA PNEUMONIAE [K. PNEUMONIAE] THE CAUSE OF DISEASES CLASSIFIED ELSEWHERE 08/24/[address] active 10 MUSCLE WEAKNESS (GENERALIZED) 08/24/[address] active 11 NEED FOR ASSISTANCE WITH PERSONAL CARE 08/24/[address] active 12 NON-PRESSURE CHRONIC ULCER OF RIGHT HEEL AND MIDFOOT LIMITED TO BREAKDOWN OF SKIN 08/24/[address] active 13 OBSTRUCTIVE AND REFLUX UROPATHY, UNSPECIFIED 08/24/[address] active 14 OTHER SPECIFIED DISORDERS OF KIDNEY AND URETER 08/24/[address] active 15 SEPSIS, UNSPECIFIED ORGANISM 08/24/[address] active 16 SEVERE SEPSIS WITH SEPTIC SHOCK 08/24/[address] active 17 TYPE 2 DIABETES MELLITUS WITH OTHER SPECIFIED COMPLICATION 08/24/[address] active 18 UNSPECIFIED HYDRONEPHROSIS 08/24/[address] active 19 UNSPECIFIED OSTEOARTHRITIS, UNSPECIFIED SITE 08/24/[address] active 20 UNSTEADINESS ON FEET 08/24/[address] active 21 VENTRAL HERNIA WITHOUT OBSTRUCTION OR GANGRENE 08/24/[address] active Reason for Referral No Reasons for Referral Entered Social History Social History Observation Description Start Date End Date Code Code System Current Smoking Status Tobacco smoking consumption unknown 464686773 SNOMED CT Sex Assigned At Female 1955 56659-9 [facility] Gender Identity Vital Signs Code Code System Vitals Name Values and Units Timing Information 9279-1 [facility] Respiratory Rate Value=18.0 Units=/m in 09/02/2020 8462-4 [facility] Blood Pressure-Diastolic Value=75 Un its=mmHg 09/02/2020 8480-6 [facility] Blood Pressure-Systolic Njitv=059 Un its=mmHg 09/02/2020 8310-5 [facility] Body Temperature Value=97.5 Units= F 09/02/2020 8867-4 [facility] Heart rate Value=99.0 Units=/min 69923-9 [facility] O2 % BldC Oximetry Value=95.0 Units= % 09/02/2020 53914-6 [facility] Weight Rxzbu=570.2 Units=Lbs 40040-3 [facility] Pain Level Value=2.0 09/01/2020 2339-0 [facility] Blood Sugar Joyco=305.0 Units=mg/dL 08/29/2020 8302-2 [facility] Height Value=64.0 Units=Inches 08/23/2020
--- OUTSIDE RECORDS SUMMARY | 2024-12-23 19:48 | XMS_ITS | Encounter Summary ---
Author Organization [place] [address] Care Team Providers Care Quill Layer Name Role Phone Rah Mauricio Primary Care Provider [phone] Reason for Visit * Reason Comments Medication Refill Encounter Details Date Type Department Care Team (Late Contact Info) Description 11/24/2024 Refill [facility] [address] [facility] [address] [place] [phone] Maikel King R, DO [address] [place] [address] Medication Refill Social History Tobacco Use Types Packs/Day Years [...] on file documented as of this encounter Ordered Prescriptions Prescription Sig Dispense Quantity Refills Last Filled Start Date End Date ezetimibe (ZETIA) 10 mg Oral TabletIndications:M ixed hyperlipidemia,Stat in intolerance Take 1 Tablet by mouth daily. 30 Tablet 2 11/25/2024 documented in this encounter Plan of Treatment Upcoming Encounters Date Type Department Care Team (Late st Contact Info) Description 03/02/2025 10:45 AM EDT Office Visit [facility] [address] [place] [address] Raphael Wylie APRN [address] [place] [address] 07/27/2025 12:00 PM EDT Office Visit [facility] Nephrology [place] [address] [place] [phone] Omar Morlilo MD [address] [address] 09/07/2025 11:00 AM EDT Office Visit [facility] [address] [place] [address] Maikel King DO [address] [place] [address] documented as of this encounter Visit Diagnoses Diagnosis Mixed hyperlipidemia Statin intolerance Other drug allergy documented in this encounter Discontinued Medications Medication Sig Discontinue Reason Start Date End Da te ezetimibe (ZETIA) 10 mg Oral TabletIndications:Mixed hyperlipidemia,Statin intolerance Take 1 Tablet by mouth daily. 08/26/2024 11/25/2024 documented as of this encounter Care Teams Quill Layer Relationship Specialty Start Date End Date Rah Mauricio [address] [facility] [address] [place] [address] PCP - General Family Medicine 06/26/16 documented as of this encounter
--- OUTSIDE RECORDS SUMMARY | 2024-12-23 19:48 | XMS_ITS | Encounter Summary ---
Author Organization [place] [address] Care Team Providers Care Inventory Worker Name Role Phone HangRah trevizo Primary Care Provider [phone] Encounter Details Date Type Department Care Team (Late st Contact Info) Description 06/22/2020 Lab [place] [address] Preet Cox MD [address] [facility] [address] [place] [address] Other general symptoms and signs; Elevated erythrocyte sedimentation rate; Other specified abnormal findings of blood chemistry; Elevated C-reactive protein (CRP) Social History Tobacco Use Types Packs/Day Years Used Date Smoking Tobacco: Never Assessed Comments Unknown Sex and Gender Information Value Date Recorded Sex Assigned at Not on file Legal Sex Female 9:49 AM EDT Gender Identity Not on file Sexual Orientation Not on file documented as of this encounter Plan of Treatment Upcoming Encounters Date Type Department Care Team (Late st Contact Info) Description 03/02/2025 10:45 AM EDT Office Visit [facility] [address] [place] [address] Raphael Wylie APRN [address] [place] [address] 07/27/2025 12:00 PM EDT Office Visit [facility] Nephrology [place] [address] [place] [address] Omar Morillo MD [address] [place] [address] 09/07/2025 11:00 AM EDT Office Visit [facility] [address] [place] [address] Maikel King DO [address] [place] [address] documented as of this encounter Procedures Procedure Name Priority Date/Time Associated Diagnosis Comments EXTRA LIGHT BLUE Routine 06/22/2020 5:13 PM EST Other general symptoms and signs Elevated erythrocyte sedimentation rate Other specified abnormal findings of blood chemistry Elevated C-reactive protein (CRP) CBC Routine 06/22/2020 5:13 PM EST Other general symptoms and signs Elevated erythrocyte sedimentation rate Other specified abnormal findings of blood chemistry Elevated C-reactive protein (CRP) SEDIMENTATION RATE AUTOMATED Routine 06/22/2020 5:13 PM EST Other general symptoms and signs Elevated erythrocyte sedimentation rate Other specified abnormal findings of blood chemistry Elevated C-reactive protein (CRP) C-REACTIVE PROTEIN Routine 06/22/2020 5: 13 PM EST Other general symptoms and signs Elevated erythrocyte sedimentation rate Other specified abnormal findings of blood chemistry Elevated C-reactive protein (CRP) VANCOMYCIN LEVEL TROUGH Routine 06/22/2020 5:13 PM EST Other general symptoms and signs Elevated erythrocyte sedimentation rate Other specified abnormal findings of blood chemistry Elevated C-reactive protein (CRP) COMPREHENSIVE METABOLIC PANEL Routine 06/22/2020 5:13 PM EST Other general symptoms and signs Elevated erythrocyte sedimentation rate Other specified abnormal findings of blood chemistry Elevated C-reactive protein (CRP) documented in this encounter Results * EXTRA LIGHT BLUE (06/22/2020 5:13 PM EST) Blood VENOUS BLOOD / Unknown 06/22/2020 5:13 PM EST 06/22/2020 7:13 PM EST us Prete Cox MD HEMATOLOGY ORDERABLES Final Re sult Performing Organization Address [facility]/ZIP Co de Phone Number [facility] [address] [place] [address] * (ABNORMAL) VANCOMYCIN LEVEL TROUGH (06/22/2020 5:13 PM EST) Pathologist [facility] Vanco Tr 27.0(HH) 10.0-<20.0 mcg/mL 06/22/2020 9:06 PM EST [facility] [employer] Blood VENOUS BLOOD / Unknown 06/22/2020 5:13 PM EST 06/22/2020 7:13 PM EST Narrative [facility] [employer] - 06/22/2020 9:06 PM EST Minimum serum concentration for infection control is 10 mcg/mL; a target therapeutic range of 15-20 mcg/mL is recommended for significant infections such as S. aureus. Toxicity does not correlate well with serum concentrations. Supratherapeutic levels are considered to be > 20 mcg/mL. us Preet Cox MD CHEMISTRY ORDERABLES Final Res ult Performing Organization Address [facility] Co de Phone Number [employer] [address] [place] [address] , [place] [address] * C-REACTIVE PROTEIN (06/22/2020 5:13 PM EST) [facility] CRP 4.03 <=5.00 mg/L 06/22/2020 8:38 PM EST [facility] [employer] Blood VENOUS BLOOD / Unknown 06/22/2020 5:13 PM EST 06/22/2020 7:13 PM EST us Preet Cox MD CHEMISTRY ORDERABLES Final Res ult Performing Organization Address [facility] Co de Phone Number [facility] [employer], [address] , [address] [place] [phone] * (ABNORMAL) COMPREHENSIVE METABOLIC PANEL (06/22/2020 5:13 PM EST) Sodium 141 136 - 145 mmol/L 06/22/2020 8:38 PM EST [facility] Potassium 4.1 3.5 - 5.0 mmol/L 06/22/2020 8:38 PM EST [facility] Chloride 106 98 - 107 mmol/L 06/22/2020 8:38 PM EST [facility] Total CO2 27 22 - 29 mmol/L 06/22/2020 8:38 PM EST [facility] Anion Gap 8 7 - 16 mmol/L 06/22/2020 8:38 PM EST [facility] Calcium 9.2 8.8 - 10.4 mg/dL 06/22/2020 8:38 PM EST [facility] Glucose Lvl 98 82 - 100 mg/dL 06/22/2020 8:38 PM EST [facility] BUN 27(H) 8 - 23 mg/dL 06/22/2020 8:38 PM EST [facility] Creatinine 1.26 0.51 - 1.30 mg/dL 06/22/2020 8:38 PM EST [facility] Albumin 3.4 3.2 - 4.6 gm/dL 06/22/2020 8:38 PM EST [facility] Total Protein 6.1(L) 6.4 - 8.3 gm/dL 06/22/2020 8:38 PM EST [facility] Bili Total 0.2 0.1 - 1.3 mg/dL 06/22/2020 8:38 PM EST [facility] ALT 12 <=41 U/L 06/22/2020 8:38 PM EST [facility] AST 10 <=40 U/L 06/22/2020 8:38 PM EST [facility] Alk Phos 61 36 - 123 U/L 06/22/2020 8:38 PM EST [facility] GFR Afr Am 51(L) >=60 mL/min/1.7 3 m2 06/22/2020 8:38 PM EST [facility] GFR Non Afr Am 45(L) >=60 mL/min/1.7 3 m2 06/22/2020 8:38 PM EST [facility] Comment: This estimated GFR was calculated using CKD-EPI equation which is modified based on ethnicity for Non Americans and Americans. Both results are reported since it is not always possible to determine the patient's ethnicity. This equation should only be used for individuals 18 and older. It has not been validated for use with the elderly (>70 years), women, or in some racial or ethnic subgroups, such as Hispanics. The equation will be less accurate in people with differences in nutritional status or muscle mass. Blood VENOUS BLOOD / Unknown 06/22/2020 5:13 PM EST 06/22/2020 7:13 PM EST Preet Cox MD CHEMISTRY ORDERABLES Final Res ult Performing Organization Address [facility] de Phone Number [facility] [employer] , [place] [address] [facility] [address] [place] [address] * (ABNORMAL) SEDIMENTATION RATE AUTOMATED (06/22/2020 5:13 PM EST) Sed Rate 34(H) 0 - 30 mm/hr 06/22/2020 8:14 PM EST [facility], [facility] Blood VENOUS BLOOD / Unknown 06/22/2020 5:13 PM EST 06/22/2020 7:13 PM EST us Preet Cox MD HEMATOLOGY ORDERABLES Final Re sult Performing Organization Address [facility] Co de Phone Number [facility] [employer] [address] , [place] [address] * (ABNORMAL) CBC (06/22/2020 5:13 PM EST) WBC 7.2 3.7 - 10.3 x10(3)/mcL 06/22/2020 7:54 PM EST [facility], [facility] RBC 3.77(L) 3.90 - 5.20 x10(6)/mcL 06/22/2020 7:54 PM EST [facility] Hgb 10.9(L) 11.2 - 15.7 g/dL 06/22/2020 7:54 PM EST [facility] Hct 36.3 34.0 - 45.0 % 06/22/2020 7:54 PM EST [facility] MCV 96.3 80.0 - 100.0 fL 06/22/2020 7:54 PM EST [facility] MCH 28.9 26.0 - 34.0 pg 06/22/2020 7:54 PM EST [facility] MCHC 30.0(L) 30.7 - 35.5 g/dL 06/22/2020 7:54 PM EST [facility] RDW 13.5 <=14.9 % 06/22/2020 7:54 PM EST [facility] Platelet 216 155 - 369 x10(3)/mcL 06/22/2020 7:54 PM EST [facility] MPV 12.1 8.8 - 12.5 fL 06/22/2020 7:54 PM EST [facility] Blood VENOUS BLOOD / Unknown 06/22/2020 5:13 PM EST 06/22/2020 7:13 PM EST us Preet Cox MD HEMATOLOGY ORDERABLES Final Re sult [facility] [address] [facility] , [address] [place] [phone] documented in this encounter Visit Diagnoses Diagnosis Other general symptoms and signs Elevated erythrocyte sedimentation rate Elevated sedimentation rate Other specified abnormal findings of blood chemistry Elevated C-reactive protein (CRP) documented in this encounter Care Teams Inventory Worker Relationship Specialty Start Date End Date Rah Mauricio [address] [place] [address] [address] [facility] [address] PCP - General Family Medicine 06/26/16 documented as of this encounter
--- OUTSIDE RECORDS SUMMARY | 2024-12-23 19:48 | XMS_ITS | Encounter Summary ---
Author Organization [facility] Address [address] [facility] [place] [address] Care Team Providers Care Ramp Flight Attendant Name Role Phone HangRah trevizo Primary Care Provider [phone] Encounter Details Date Type Department Care Team (Latest Contact Info) Description 07/04/2020 Lab Requisition [facility] [place] [address] Barry Cox MD [facility] [address] [place] [address] Elevated erythrocyte sedimentation rate; Other general symptoms and signs; Elevated C-reactive protein (CRP); Encounter for therapeutic drug level monitoring Social History Tobacco Use Types Packs/Day Years [...] [facility] [address] [place] [address] Raphael Wylie APRN [address] [place] [address] 07/27/2025 12:00 PM EDT Office Visit [facility] Nephrology [place] [address] [place], [place] [phone] Omar Morillo MD [address] [place] [address] 09/07/2025 11:00 AM EDT Office Visit [facility] [address] [place] [address] Maikel King DO [address] [place] [address] documented as of this encounter Procedures Procedure Name Priority Date/Time Associated Diagnosis Comments EXTRA LIGHT BLUE Routine 07/04/2020 6:30 PM EST Elevated erythrocyte sedimentation rate Other general symptoms and signs Elevated C-reactive protein (CRP) Encounter for therapeutic drug level monitoring CBC Routine 07/04/2020 6:30 PM EST Elevated erythrocyte sedimentation rate Other general symptoms and signs Elevated C-reactive protein (CRP) Encounter for therapeutic drug level monitoring SEDIMENTATION RATE AUTOMATED Routine 07/04/2020 6:30 PM EST Elevated erythrocyte sedimentation rate Other general symptoms and signs Elevated C-reactive protein (CRP) Encounter for therapeutic drug level monitoring C-REACTIVE PROTEIN Routine 07/04/2020 6: 30 PM EST Elevated erythrocyte sedimentation rate Other general symptoms and signs Elevated C-reactive protein (CRP) Encounter for therapeutic drug level monitoring VANCOMYCIN LEVEL TROUGH Routine 07/04/2020 6:30 PM EST Elevated erythrocyte sedimentation rate Other general symptoms and signs Elevated C-reactive protein (CRP) Encounter for therapeutic drug level monitoring COMPREHENSIVE METABOLIC PANEL Routine 07/04/2020 6:30 PM EST Elevated erythrocyte sedimentation rate Other general symptoms and signs Elevated C-reactive protein (CRP) Encounter for therapeutic drug level monitoring documented in this encounter Results * EXTRA LIGHT BLUE (07/04/2020 6:30 PM EST) Blood VENOUS BLOOD / Unknown 07/04/2020 6:30 PM EST 07/04/2020 9:50 PM EST us Barry Cox MD HEMATOLOGY ORDERABLES Fin al Result Performing Organization Address City/[facility]/ZIP Co de Phone Number [facility] [address] [place] [address] * (ABNORMAL) VANCOMYCIN LEVEL TROUGH (07/04/2020 6:30 PM EST) [facility] Vanco Tr 25.6(HH) 10.0-<20.0 mcg/mL 07/05/2020 12:44 AM EST [facility] Blood VENOUS BLOOD / Unknown 07/04/2020 6:30 PM EST 07/04/2020 9:49 PM EST Narrative [facility] [employer] - 07/05/2020 12:44 AM EST Minimum serum concentration for infection control is 10 mcg/mL; a target therapeutic range of 15-20 mcg/mL is recommended for significant infections such as S. aureus. Toxicity does not correlate well with serum concentrations. Supratherapeutic levels are considered to be > 20 mcg/mL. us Barry Cox MD CHEMISTRY ORDERABLES Katrina l Result Performing Organization Address [facility] de Phone Number [facility] [address] [place] [address] , [address] [place] [phone] * (ABNORMAL) C-REACTIVE PROTEIN (07/04/2020 6:30 PM EST) [facility] CRP 15.34(H) <=5.00 mg/L 07/04/2020 11:48 PM EST [facility] [employer] Blood VENOUS BLOOD / Unknown 07/04/2020 6:30 PM EST 07/04/2020 9:49 PM EST us Barry Cox MD CHEMISTRY ORDERABLES Katrina l Result Performing Organization Address [facility] Co de Phone Number [employer] [place] [address] [place] [address] , [place] [address] * (ABNORMAL) COMPREHENSIVE METABOLIC PANEL (07/04/2020 6:30 PM EST) Sodium 142 136 - 145 mmol/L 07/04/2020 11:48 PM EST [facility] Potassium 4.4 3.5 - 5.0 mmol/L 07/04/2020 11:48 PM EST [facility] Chloride 106 98 - 107 mmol/L 07/04/2020 11:48 PM EST [facility] Total CO2 25 22 - 29 mmol/L 07/04/2020 11:48 PM EST [facility] Anion Gap 11 7 - 16 mmol/L 07/04/2020 11:48 PM EST [facility] Calcium 9.4 8.8 - 10.4 mg/dL 07/04/2020 11:48 PM EST [facility] Glucose Lvl 89 82 - 100 mg/dL 07/04/2020 11:48 PM EST [facility] BUN 31(H) 8 - 23 mg/dL 07/04/2020 11:48 PM EST [facility] Creatinine 1.45(H) 0.51 - 1.30 mg/dL 07/04/2020 11:48 PM EST [facility] Albumin 3.8 3.2 - 4.6 gm/dL 07/04/2020 11:48 PM EST [facility] Total Protein 6.2(L) 6.4 - 8.3 gm/dL 07/04/2020 11:48 PM EST [facility] Bili Total 0.3 0.1 - 1.3 mg/dL 07/04/2020 11:48 PM EST [facility] ALT 10 <=41 U/L 07/04/2020 11:48 PM EST [facility] AST 13 <=40 U/L 07/04/2020 11:48 PM EST [facility] Alk Phos 72 36 - 123 U/L 07/04/2020 11:48 PM EST [facility] GFR Afr Am 43(L) >=60 mL/min/1.7 3 m2 07/04/2020 11:48 PM EST [facility] GFR Non Afr Am 38(L) >=60 mL/min/1.7 3 m2 07/04/2020 11:48 PM EST [facility] Comment: This estimated GFR was [...] muscle mass. Blood VENOUS BLOOD / Unknown 07/04/2020 6:30 PM EST 07/04/2020 9:49 PM EST Barry Cox MD CHEMISTRY ORDERABLES Katrina l Result Performing Organization Address [facility] de Phone Number [address] , [place] [address] [facility] [address] [place] [address] * SEDIMENTATION RATE AUTOMATED (07/04/2020 6:30 PM EST) Sed Rate 22 0 - 30 mm/hr 07/04/2020 10:52 PM EST [facility] Blood VENOUS BLOOD / Unknown 07/04/2020 6:30 PM EST 07/04/2020 9:49 PM EST Barry Cox MD HEMATOLOGY ORDERABLES Fin al Result Performing Organization Address [facility] de Phone Number [facility] [employer] , [place] [address] * (ABNORMAL) CBC (07/04/2020 6:30 PM EST) WBC 6.4 3.7 - 10.3 x10(3)/mcL 07/04/2020 10:39 PM EST [facility] [employer], [facility] RBC 3.71(L) 3.90 - 5.20 x10(6)/mcL 07/04/2020 10:39 PM EST [facility] [employer], [facility] Hgb 11.0(L) 11.2 - 15.7 g/dL 07/04/2020 10:39 PM EST [facility] Hct 34.7 34.0 - 45.0 % 07/04/2020 10:39 PM EST [facility] MCV 93.5 80.0 - 100.0 fL 07/04/2020 10:39 PM EST [facility] MCH 29.6 26.0 - 34.0 pg 07/04/2020 10:39 PM EST [facility] MCHC 31.7 30.7 - 35.5 g/dL 07/04/2020 10:39 PM EST [facility] RDW 13.8 <=14.9 % 07/04/2020 10:39 PM EST [facility] Platelet 184 155 - 369 x10(3)/mcL 07/04/2020 10:39 PM EST [facility] MPV 13.2(H) 8.8 - 12.5 fL 07/04/2020 10:39 PM EST [facility] Blood VENOUS BLOOD / Unknown 07/04/2020 6:30 PM EST 07/04/2020 9:49 PM EST Barry Cox MD HEMATOLOGY ORDERABLES Fin al Result [facility] [address] [facility] , [place] [address] documented in this encounter Visit Diagnoses Diagnosis Elevated erythrocyte sedimentation rate Elevated sedimentation rate Other general symptoms and signs Elevated C-reactive protein (CRP) Encounter for therapeutic drug level monitoring Encounter for therapeutic drug monitoring documented in this encounter Care Teams Ramp Flight Attendant Relationship Specialty Start Date End Date Rah Mauricio [facility] [address] [place] [address] PCP - General Family Medicine 06/26/16 documented as of this encounter
--- OUTSIDE RECORDS SUMMARY | 2024-12-23 19:48 | XMS_ITS | Encounter Summary ---
Author Organization [place] [address] Care Team Providers Care V Belt Skiver Name Role Phone Rah Mauricio Primary Care Provider [phone] Encounter Details Date Type Department Care Team (Late st Contact Info) Description 07/11/2020 Lab [facility] [place] [address] Preet Cox MD [address] [facility] [address] [place] [address] Other general symptoms and signs; Elevated erythrocyte sedimentation rate; Encounter for screening for other metabolic disorders; Encounter for therapeutic drug level monitoring; Elevated C-reactive protein (CRP) Social History Tobacco [...] Description 03/02/2025 10:45 AM EDT Office Visit [facility] [address] [place] [address] Raphael Wylie APRN [address] [place], [place] [id number] 07/27/2025 12:00 PM EDT Office Visit [facility] Nephrology [place] [address] [place] [address] Omar Morillo MD [address] [address] 09/07/2025 11:00 AM EDT Office Visit [facility] [address] [place] [address] Maikel King DO [address] [place] [address] documented as of this encounter Procedures Procedure Name Priority Date/Time Associated Diagnosis Comments EXTRA LIGHT BLUE Routine 07/11/2020 5:30 PM EST Other general symptoms and signs Elevated erythrocyte sedimentation rate Encounter for screening for other metabolic disorders Encounter for therapeutic drug level monitoring Elevated C-reactive protein (CRP) CBC Routine 07/11/2020 5:30 PM EST Other general symptoms and signs Elevated erythrocyte sedimentation rate Encounter for screening for other metabolic disorders Encounter for therapeutic drug level monitoring Elevated C-reactive protein (CRP) SEDIMENTATION RATE AUTOMATED Routine 07/11/2020 5:30 PM EST Other general symptoms and signs Elevated erythrocyte sedimentation rate Encounter for screening for other metabolic disorders Encounter for therapeutic drug level monitoring Elevated C-reactive protein (CRP) C-REACTIVE PROTEIN Routine 07/11/2020 5: 30 PM EST Other general symptoms and signs Elevated erythrocyte sedimentation rate Encounter for screening for other metabolic disorders Encounter for therapeutic drug level monitoring Elevated C-reactive protein (CRP) VANCOMYCIN LEVEL TROUGH Routine 07/11/2020 5:30 PM EST Other general symptoms and signs Elevated erythrocyte sedimentation rate Encounter for screening for other metabolic disorders Encounter for therapeutic drug level monitoring Elevated C-reactive protein (CRP) COMPREHENSIVE METABOLIC PANEL Routine 07/11/2020 5:30 PM EST Other general symptoms and signs Elevated erythrocyte sedimentation rate Encounter for screening for other metabolic disorders Encounter for therapeutic drug level monitoring Elevated C-reactive protein (CRP) documented in this encounter Results * EXTRA LIGHT BLUE (07/11/2020 5:30 PM EST) Blood VENOUS BLOOD / Unknown 07/11/2020 5:30 PM EST 07/11/2020 9:53 PM EST us Preet Cox MD HEMATOLOGY ORDERABLES Final Re sult Performing Organization Address [facility] [place] [address] * C-REACTIVE PROTEIN (07/11/2020 5:30 PM EST) CRP 4.92 <=5.00 mg/L 07/11/2020 11:32 PM EST [facility] Blood VENOUS BLOOD / Unknown 07/11/2020 5:30 PM EST 07/11/2020 9:53 PM EST us Preet Cox MD CHEMISTRY ORDERABLES Final Res ult Performing Organization Address [facility] Phone Number [place] [facility] [address] [place] [address], [place] [address] * VANCOMYCIN LEVEL TROUGH (07/11/2020 5:30 PM EST) Vanco Tr 17.9 10.0-<20.0 mcg/mL 07/11/2020 11:34 PM EST [facility] Blood VENOUS BLOOD / Unknown 07/11/2020 5:30 PM EST 07/11/2020 9:53 PM EST Narrative [facility] - 07/11/2020 11:34 PM EST Minimum serum concentration for infection control is 10 mcg/mL; a target therapeutic range of 15-20 mcg/mL is recommended for significant infections such as S. aureus. Toxicity does not correlate well with serum concentrations. Supratherapeutic levels are considered to be > 20 mcg/mL. us Preet Cox MD CHEMISTRY ORDERABLES Final Res ult [facility] [address] [place] [address] * (ABNORMAL) COMPREHENSIVE METABOLIC PANEL (07/11/2020 5:30 PM EST) Sodium 141 136 - 145 mmol/L 07/11/2020 11:32 PM EST [facility] Potassium 4.4 3.5 - 5.0 mmol/L 07/11/2020 11:32 PM EST [facility] Chloride 103 98 - 107 mmol/L 07/11/2020 11:32 PM EST [facility] Total CO2 25 22 - 29 mmol/L 07/11/2020 11:32 PM EST [facility] Anion Gap 13 7 - 16 mmol/L 07/11/2020 11:32 PM EST [facility] Calcium 9.2 8.8 - 10.4 mg/dL 07/11/2020 11:32 PM EST [facility] Glucose Lvl 82 82 - 100 mg/dL 07/11/2020 11:32 PM EST [facility] BUN 36(H) 8 - 23 mg/dL 07/11/2020 11:32 PM EST [facility] Creatinine 1.65(H) 0.51 - 1.30 mg/dL 07/11/2020 11:32 PM EST [facility] Albumin 4.1 3.2 - 4.6 gm/dL 07/11/2020 11:32 PM EST [facility] Total Protein 6.2(L) 6.4 - 8.3 gm/dL 07/11/2020 11:32 PM EST [facility] Bili Total 0.3 0.1 - 1.3 mg/dL 07/11/2020 11:32 PM EST [facility] ALT 11 <=41 U/L 07/11/2020 11:32 PM EST [facility] AST 12 <=40 U/L 07/11/2020 11:32 PM EST [facility] Alk Phos 66 36 - 123 U/L 07/11/2020 11:32 PM EST [facility] GFR Afr Am 37(L) >=60 mL/min/1.7 3 m2 07/11/2020 11:32 PM EST [facility] GFR Non Afr Am 32(L) >=60 mL/min/1.7 3 m2 07/11/2020 11:32 PM EST [facility] Comment: This estimated GFR was calculated [...] muscle mass. Blood VENOUS BLOOD / Unknown 07/11/2020 5:30 PM EST 07/11/2020 9:53 PM EST Preet Cox MD CHEMISTRY ORDERABLES Final Res ult Performing Organization Address [facility] Co de Phone Number [employer] [address] [place] [address] [place] [address] [facility] [address] [place] [address] * SEDIMENTATION RATE AUTOMATED (07/11/2020 5:30 PM EST) Sed Rate 21 0 - 30 mm/hr 07/11/2020 10:54 PM EST [facility] Blood VENOUS BLOOD / Unknown 07/11/2020 5:30 PM EST 07/11/2020 9:53 PM EST Preet Cox MD HEMATOLOGY ORDERABLES Final Re sult Performing Organization Address [facility] [place] [address] * (ABNORMAL) CBC (07/11/2020 5:30 PM EST) WBC 7.1 3.7 - 10.3 x10(3)/mcL 07/11/2020 10:25 PM EST [employer] RBC 3.82(L) 3.90 - 5.20 x10(6)/mcL 07/11/2020 10:25 PM EST [facility] Hgb 11.4 11.2 - 15.7 g/dL 07/11/2020 10:25 PM EST [facility] Hct 36.3 34.0 - 45.0 % 07/11/2020 10:25 PM EST [facility] MCV 95.0 80.0 - 100.0 fL 07/11/2020 10:25 PM EST [facility] MCH 29.8 26.0 - 34.0 pg 07/11/2020 10:25 PM EST [facility] MCHC 31.4 30.7 - 35.5 g/dL 07/11/2020 10:25 PM EST [facility] RDW 13.7 <=14.9 % 07/11/2020 10:25 PM EST [facility] Platelet 194 155 - 369 x10(3)/mcL 07/11/2020 10:25 PM EST [facility] MPV 12.4 8.8 - 12.5 fL 07/11/2020 10:25 PM EST [facility] Blood VENOUS BLOOD / Unknown 07/11/2020 5:30 PM EST 07/11/2020 9:53 PM EST us Preet Cox MD HEMATOLOGY ORDERABLES Final Re sult [facility] [address] [facility] [address] , [address] [place] [id number] documented in this encounter Visit Diagnoses Diagnosis Other general symptoms and signs Elevated erythrocyte sedimentation rate Elevated sedimentation rate Encounter for screening for other metabolic disorders Encounter for therapeutic drug level monitoring Encounter for therapeutic drug monitoring Elevated C-reactive protein (CRP) documented in this encounter Care Teams V Belt Skiver Relationship Specialty Start Date End Date Rah Mauricio [address] [place] [id number] [place] [address] PCP - General Family Medicine 06/26/16 documented as of this encounter
--- OUTSIDE RECORDS SUMMARY | 2024-12-23 19:48 | XMS_ITS | Encounter Summary ---
Author Organization [place] [address] Care Team Providers Care Advertising Strategist Name Role Phone HnagRah trevizo Primary Care Provider [phone] Encounter Details Date Type Department Care Team (Late st Contact Info) Description 07/18/2020 Lab [place] [address] Preet Cox MD [address] [facility] [address] [place] [address] Encounter for screening for diabetes mellitus; Other general symptoms and signs; Elevated erythrocyte sedimentation rate; Elevated C-reactive protein (CRP) Social History Tobacco [...] EDT Office Visit [facility] [address] [place] [address] Raphael Wylie APRN [address] [place] [address] 07/27/2025 12:00 PM EDT Office Visit [facility] Nephrology [place] [address] [place], [place] [id number] Omar Morillo MD [address] [place] [address] 09/07/2025 11:00 AM EDT Office Visit [facility] [address] [place] [address] Maikel King DO [address] [place] [address] documented as of this encounter Procedures Procedure Name Priority Date/Time Associated Diagnosis Comments EXTRA LIGHT BLUE Routine 07/18/2020 12:3 0 PM EDT Encounter for screening for diabetes mellitus Other general symptoms and signs Elevated erythrocyte sedimentation rate Elevated C-reactive protein (CRP) CBC Routine 07/18/2020 12:30 PM EDT Encounter for screening for diabetes mellitus Other general symptoms and signs Elevated erythrocyte sedimentation rate Elevated C-reactive protein (CRP) SEDIMENTATION RATE AUTOMATED Routine 07/18/2020 12:30 PM EDT Encounter for screening for diabetes mellitus Other general symptoms and signs Elevated erythrocyte sedimentation rate Elevated C-reactive protein (CRP) C-REACTIVE PROTEIN Routine 07/18/2020 12 :30 PM EDT Encounter for screening for diabetes mellitus Other general symptoms and signs Elevated erythrocyte sedimentation rate Elevated C-reactive protein (CRP) HEMOGLOBIN A1C Routine 07/18/2020 12:30 PM EDT Encounter for screening for diabetes mellitus Other general symptoms and signs Elevated erythrocyte sedimentation rate Elevated C-reactive protein (CRP) VANCOMYCIN LEVEL TROUGH Routine 07/18/2020 12:30 PM EDT Encounter for screening for diabetes mellitus Other general symptoms and signs Elevated erythrocyte sedimentation rate Elevated C-reactive protein (CRP) COMPREHENSIVE METABOLIC PANEL Routine 07/18/2020 12:30 PM EDT Encounter for screening for diabetes mellitus Other general symptoms and signs Elevated erythrocyte sedimentation rate Elevated C-reactive protein (CRP) documented in this encounter Results * EXTRA LIGHT BLUE (07/18/2020 12:30 PM EDT) Blood VENOUS BLOOD / Unknown 07/18/2020 12:30 PM EDT 07/18/2020 7:20 PM EDT Preet Cox MD HEMATOLOGY ORDERABLES Final Re sult Performing Organization Address [facility] [place] [address] * (ABNORMAL) VANCOMYCIN LEVEL TROUGH (07/18/2020 12:30 PM EDT) Pathologist [facility] Vanco Tr 21.0(HH) 10.0-<20.0 mcg/mL 07/18/2020 10:41 PM EDT [facility] Blood VENOUS BLOOD / Unknown 07/18/2020 12:30 PM EDT 07/18/2020 7:20 PM EDT Narrative [facility] - 07/18/2020 10:41 PM EDT Minimum serum concentration for infection control is 10 mcg/mL; a target therapeutic range of 15-20 mcg/mL is recommended for significant infections such as S. aureus. Toxicity does not correlate well with serum concentrations. Supratherapeutic levels are considered to be > 20 mcg/mL. Preet Cox MD CHEMISTRY ORDERABLES Final Res ult Performing Organization Address [facility] Co de Phone Number [facility] [address] [place] [address], [place] [address] * C-REACTIVE PROTEIN (07/18/2020 12:30 PM EDT) Pathologist [facility] CRP 3.29 <=5.00 mg/L 07/18/2020 9:36 PM EDT [facility] Blood VENOUS BLOOD / Unknown 07/18/2020 12:30 PM EDT 07/18/2020 7:20 PM EDT us Preet Cox MD CHEMISTRY ORDERABLES Final Res ult [facility] [address] [facility] , [place] [address] * (ABNORMAL) COMPREHENSIVE METABOLIC PANEL (07/18/2020 12:30 PM EDT) Sodium 137 136 - 145 mmol/L 07/18/2020 9:36 PM EDT [facility] Potassium 4.9 3.5 - 5.0 mmol/L 07/18/2020 9:36 PM EDT [facility] Chloride 103 98 - 107 mmol/L 07/18/2020 9:36 PM EDT [facility] Total CO2 23 22 - 29 mmol/L 07/18/2020 9:36 PM EDT [facility] Anion Gap 11 7 - 16 mmol/L 07/18/2020 9:36 PM EDT [facility] Calcium 9.7 8.8 - 10.4 mg/dL 07/18/2020 9:36 PM EDT [facility] Glucose Lvl 116(H) 82 - 100 mg/dL 07/18/2020 9:36 PM EDT [facility] BUN 35(H) 8 - 23 mg/dL 07/18/2020 9:36 PM EDT [facility] Creatinine 1.52(H) 0.51 - 1.30 mg/dL 07/18/2020 9:36 PM EDT [facility] Albumin 4.0 3.2 - 4.6 gm/dL 07/18/2020 9:36 PM EDT [facility] Total Protein 6.3(L) 6.4 - 8.3 gm/dL 07/18/2020 9:36 PM EDT [facility] Bili Total 0.6 0.1 - 1.3 mg/dL 07/18/2020 9:36 PM EDT [facility] ALT 52(H) <=41 U/L 07/18/2020 9:36 PM EDT [facility] AST 37 <=40 U/L 07/18/2020 9:36 PM EDT [facility] Alk Phos 94 36 - 123 U/L 07/18/2020 9:36 PM EDT [facility] GFR Afr Am 41(L) >=60 mL/min/1.7 3 m2 07/18/2020 9:36 PM EDT [facility] GFR Non Afr Am 35(L) >=60 mL/min/1.7 3 m2 07/18/2020 9:36 PM EDT [facility] Comment: This estimated GFR was calculated [...] muscle mass. Blood VENOUS BLOOD / Unknown 07/18/2020 12:30 PM EDT 07/18/2020 7:20 PM EDT us Preet Cox MD CHEMISTRY ORDERABLES Final Res ult Performing Organization Address City/[facility]/ZIP Co de Phone Number [facility] [address] [place] [address] [place] [address] [facility] [address] [place] [address] * SEDIMENTATION RATE AUTOMATED (07/18/2020 12:30 PM EDT) Sed Rate 24 0 - 30 mm/hr 07/18/2020 8:42 PM EDT [facility] Blood VENOUS BLOOD / Unknown 07/18/2020 12:30 PM EDT 07/18/2020 7:20 PM EDT us Preet Cox MD HEMATOLOGY ORDERABLES Final Re sult Performing Organization Address [facility]/[place] [address] * (ABNORMAL) CBC (07/18/2020 12:30 PM EDT) Pathologist [facility] WBC 8.9 3.7 - 10.3 x10(3)/mcL 07/18/2020 8:30 PM EDT [facility] RBC 4.01 3.90 - 5.20 x10(6)/mcL 07/18/2020 8:30 PM EDT [facility] Hgb 11.8 11.2 - 15.7 g/dL 07/18/2020 8:30 PM EDT [facility] Hct 38.4 34.0 - 45.0 % 07/18/2020 8:30 PM EDT [facility] MCV 95.8 80.0 - 100.0 fL 07/18/2020 8:30 PM EDT [facility] MCH 29.4 26.0 - 34.0 pg 07/18/2020 8:30 PM EDT [facility] MCHC 30.7 30.7 - 35.5 g/dL 07/18/2020 8:30 PM EDT [facility] RDW 13.9 <=14.9 % 07/18/2020 8:30 PM EDT [facility] Platelet 150(L) 155 - 369 x10(3)/mcL 07/18/2020 8:30 PM EDT [facility] MPV 13.5(H) 8.8 - 12.5 fL 07/18/2020 8:30 PM EDT [facility] Blood VENOUS BLOOD / Unknown 07/18/2020 12:30 PM EDT 07/18/2020 7:20 PM EDT us Preet Cox MD HEMATOLOGY ORDERABLES Final Re sult [facility] [address] [facility] , [place] [address] * HEMOGLOBIN A1C (07/18/2020 12:30 PM EDT) [facility] Hgb A1C 5.6 4.2 - 5.6 % 07/18/2020 9:22 PM EDT [facility] Est. Avg Glucose 114 mg/dL 07/18/2020 9:22 PM EDT [facility] Blood VENOUS BLOOD / Unknown 07/18/2020 12:30 PM EDT 07/18/2020 7:20 PM EDT Narrative [facility] - 07/18/2020 9:22 PM EDT REFERENCE RANGE: Normal: 4.0-5.6% Pre-diabetes: 5.7-6.4% Provisional diagnosis of diabetes: >6.4% Hgb F>10% and anything which shortens red cell survival, such as hemolytic anemia, or unstable hemoglobin variants such as HbSS, HbSC, or HbCC, will lower the HbA1c value associated with a given level of glycemic control. us Preet Cox MD CHEMISTRY ORDERABLES Final Res ult [facility] [address] [facility] , [place] [address] documented in this encounter Visit Diagnoses Diagnosis Encounter for screening for diabetes mellitus Screening for diabetes mellitus Other general symptoms and signs Elevated erythrocyte sedimentation rate Elevated sedimentation rate Elevated C-reactive protein (CRP) documented in this encounter Care Teams Advertising Strategist Relationship Specialty Start Date End Date Rah Mauricio [facility] [address] [place] [address] PCP - General Family Medicine 06/26/16 documented as of this encounter
--- OUTSIDE RECORDS SUMMARY | 2024-12-23 19:48 | XMS_ITS | Encounter Summary ---
Author Organization [place] [address] Care Team Providers Care Panel Saw Operator Name Role Phone HangRah trevizo Primary Care Provider [phone] Encounter Details Date Type Department Care Team (Latest Contact Info) Description 08/02/2020 Lab Requisition [facility] [place] [address] Barry Cox MD [address] [place] [address] Other general symptoms and signs; Elevated erythrocyte sedimentation rate; Encounter for therapeutic drug level monitoring Social [...] Description 03/02/2025 10:45 AM EDT Office Visit Cory APPIAH [address] [place] [address] Raphael Wylie APRN [address] [place] [address] 07/27/2025 12:00 PM EDT Office Visit [facility] Nephrology [place] [address] [place], [place] [id number] Omar Morillo MD [address] [place] [address] 09/07/2025 11:00 AM EDT Office Visit [facility] [address] [place] [address] Maikel King, [address] [place] [address] documented as of this encounter Procedures Procedure Name Priority Date/Time Associated Diagnosis Comments EXTRA LIGHT BLUE Routine 08/02/2020 1:00 PM EDT Other general symptoms and signs Elevated erythrocyte sedimentation rate Encounter for therapeutic drug level monitoring CBC Routine 08/02/2020 1:00 PM EDT Other general symptoms and signs Elevated erythrocyte sedimentation rate Encounter for therapeutic drug level monitoring SEDIMENTATION RATE AUTOMATED Routine 08/02/2020 1:00 PM EDT Other general symptoms and signs Elevated erythrocyte sedimentation rate Encounter for therapeutic drug level monitoring C-REACTIVE PROTEIN Routine 08/02/2020 1: 00 PM EDT Other general symptoms and signs Elevated erythrocyte sedimentation rate Encounter for therapeutic drug level monitoring VANCOMYCIN LEVEL TROUGH Routine 08/02/2020 1:00 PM EDT Other general symptoms and signs Elevated erythrocyte sedimentation rate Encounter for therapeutic drug level monitoring COMPREHENSIVE METABOLIC PANEL Routine 08/02/2020 1:00 PM EDT Other general symptoms and signs Elevated erythrocyte sedimentation rate Encounter for therapeutic drug level monitoring documented in this encounter Results * EXTRA LIGHT BLUE (08/02/2020 1:00 PM EDT) Blood VENOUS BLOOD / Unknown 08/02/2020 1:00 PM EDT 08/02/2020 3:32 PM EDT Barry Cox MD HEMATOLOGY ORDERABLES Fin al Result [facility] [address] [id number] * (ABNORMAL) VANCOMYCIN LEVEL TROUGH (08/02/2020 1:00 PM EDT) Pathologist [facility] Vanco Tr <4.0(L) 10.0-<20.0 mcg/mL 08/02/2020 6:25 PM EDT [facility] [employer] Blood VENOUS BLOOD / Unknown 08/02/2020 1:00 PM EDT 08/02/2020 3:25 PM EDT Narrative [facility] [employer] - 08/02/2020 6:25 PM EDT Minimum serum concentration for infection control is 10 mcg/mL; a target therapeutic range of 15-20 mcg/mL is recommended for significant infections such as S. aureus. Toxicity does not correlate well with serum concentrations. Supratherapeutic levels are considered to be > 20 mcg/mL. us Barry Cox MD CHEMISTRY ORDERABLES Katrina l Result Performing Organization Address [facility]/ZIP Co de Phone Number [facility] [employer] [address] [place] [address] , [place] [address] * (ABNORMAL) C-REACTIVE PROTEIN (08/02/2020 1:00 PM EDT) [facility] CRP 15.37(H) <=5.00 mg/L 08/02/2020 6:19 PM EDT [employer] Blood VENOUS BLOOD / Unknown 08/02/2020 1:00 PM EDT 08/02/2020 3:25 PM EDT us Barry Cox MD CHEMISTRY ORDERABLES Katrina l Result Performing Organization Address City/[facility]/ZIP Co de Phone Number [employer] [address] [place] [address] , [place] [address] * (ABNORMAL) COMPREHENSIVE METABOLIC PANEL (08/02/2020 1:00 PM EDT) [facility] Sodium 139 136 - 145 mmol/L 08/02/2020 7:25 PM EDT [facility] Potassium 5.1(H) 3.5 - 5.0 mmol/L 08/02/2020 7:25 PM EDT [facility] Chloride 97(L) 98 - 107 mmol/L 08/02/2020 7:25 PM EDT [facility] Total CO2 25 22 - 29 mmol/L 08/02/2020 7:25 PM EDT [facility] Anion Gap 17(H) 7 - 16 mmol/L 08/02/2020 7:25 PM EDT [facility] Calcium 10.2 8.8 - 10.4 mg/dL 08/02/2020 7:25 PM EDT [facility] Glucose Lvl 46(LL) 82 - 100 mg/dL 08/02/2020 7:25 PM EDT [facility] BUN 43(H) 8 - 23 mg/dL 08/02/2020 7:25 PM EDT [facility] Creatinine 1.74(H) 0.51 - 1.30 mg/dL 08/02/2020 7:25 PM EDT [facility] Albumin 4.0 3.2 - 4.6 gm/dL 08/02/2020 7:25 PM EDT [facility] Total Protein 6.4 6.4 - 8.3 gm/dL 08/02/2020 7:25 PM EDT [facility] Bili Total 0.6 0.1 - 1.3 mg/dL 08/02/2020 7:25 PM EDT [facility] ALT 63(H) <=41 U/L 08/02/2020 7:25 PM EDT [facility] AST 40 <=40 U/L 08/02/2020 7:25 PM EDT [facility] Alk Phos 150(H) 36 - 123 U/L 08/02/2020 7:25 PM EDT [facility] GFR Afr Am 34(L) >=60 mL/min/1.7 3 m2 08/02/2020 7:25 PM EDT [facility] GFR Non Afr Am 30(L) >=60 mL/min/1.7 3 m2 08/02/2020 7:25 PM EDT [facility] Comment: This estimated [...] muscle mass. Blood VENOUS BLOOD / Unknown 08/02/2020 1:00 PM EDT 08/02/2020 3:25 PM EDT Barry Cox MD CHEMISTRY ORDERABLES Katrina l Result Performing Organization Address [facility] de Phone Number [facility] [employer] , [place] [address] [facility] [address] [place] [address] * SEDIMENTATION RATE AUTOMATED (08/02/2020 1:00 PM EDT) Sed Rate 20 0 - 30 mm/hr 08/02/2020 6:13 PM EDT [facility] [employer] [facility] Blood VENOUS BLOOD / Unknown 08/02/2020 1:00 PM EDT 08/02/2020 3:25 PM EDT Barry Cox MD HEMATOLOGY ORDERABLES Fin al Result Performing Organization Address [facility] de Phone Number [facility] [employer] [address] , [place] [address] * (ABNORMAL) CBC (08/02/2020 1:00 PM EDT) WBC 8.1 3.7 - 10.3 x10(3)/mcL 08/02/2020 6:06 PM EDT [facility] [employer] [employer] [employer] RBC 3.78(L) 3.90 - 5.20 x10(6)/mcL 08/02/2020 6:06 PM EDT [facility] Hgb 11.6 11.2 - 15.7 g/dL 08/02/2020 6:06 PM EDT [facility] Hct 39.2 34.0 - 45.0 % 08/02/2020 6:06 PM EDT [facility] MCV 103.7(H) 80.0 - 100.0 fL 08/02/2020 6:06 PM EDT [facility] MCH 30.7 26.0 - 34.0 pg 08/02/2020 6:06 PM EDT [facility] MCHC 29.6(L) 30.7 - 35.5 g/dL 08/02/2020 6:06 PM EDT [facility] RDW 14.6 <=14.9 % 08/02/2020 6:06 PM EDT [facility] Platelet 232 155 - 369 x10(3)/mcL 08/02/2020 6:06 PM EDT [facility] MPV 13.5(H) 8.8 - 12.5 fL 08/02/2020 6:06 PM EDT [facility] Blood VENOUS BLOOD / Unknown 08/02/2020 1:00 PM EDT 08/02/2020 3:25 PM EDT Barry Cox MD HEMATOLOGY ORDERABLES Fin al Result [facility] [address] [facility] , [place] [address] documented in this encounter Visit Diagnoses Diagnosis Other general symptoms and signs Elevated erythrocyte sedimentation rate Elevated sedimentation rate Encounter for therapeutic drug level monitoring Encounter for therapeutic drug monitoring documented in this encounter Care Teams Panel Saw Operator Relationship Specialty Start Date End Date Rah Mauricio [id number] [place] [address] PCP - General Family Medicine 06/26/16 documented as of this encounter
--- OUTSIDE RECORDS SUMMARY | 2024-12-23 19:48 | XMS_ITS | Encounter Summary ---
Author Organization [place] [address] Care Team Providers Care Jive Developer Name Role Phone Rah Mauricio Primary Care Provider [phone] Encounter Details Date Type Department Care Team (Late st Contact Info) Description 06/29/2020 [facility] [place] [address] Preet Cox MD [address] [facility] [address] [place] [address] Other general symptoms and signs; Acute abdomen; Other specified abnormal findings of blood chemistry; Elevated C-reactive protein (CRP); Encounter for therapeutic [...] Cory APPIAH [address] [place] [address] Raphael Wylie APRN [address] [place] [phone] 07/27/2025 12:00 PM EDT Office Visit [facility] [place]phrology [place] [address] [place] [address] Omar Morillo MD [address] [address] 09/07/2025 11:00 AM EDT Office Visit [facility] [address] [place] [address] Maikel King DO [address] [place] [address] documented as of this encounter Procedures Procedure Name Priority Date/Time Associated Diagnosis Comments EXTRA LIGHT BLUE Routine 06/29/2020 6:00 PM EST Other general symptoms and signs Acute abdomen Other specified abnormal findings of blood chemistry Elevated C-reactive protein (CRP) Encounter for therapeutic drug level monitoring CBC STAT 06/29/2020 6:00 PM EST Other general symptoms and signs Acute abdomen Other specified abnormal findings of blood chemistry Elevated C-reactive protein (CRP) Encounter for therapeutic drug level monitoring SEDIMENTATION RATE AUTOMATED STAT 06/29/2020 6:00 PM EST Other general symptoms and signs Acute abdomen Other specified abnormal findings of blood chemistry Elevated C-reactive protein (CRP) Encounter for therapeutic drug level monitoring C-REACTIVE PROTEIN STAT 06/29/2020 6: 00 PM EST Other general symptoms and signs Acute abdomen Other specified abnormal findings of blood chemistry Elevated C-reactive protein (CRP) Encounter for therapeutic drug level monitoring VANCOMYCIN LEVEL TROUGH STAT 06/29/2020 6:00 PM EST Other general symptoms and signs Acute abdomen Other specified abnormal findings of blood chemistry Elevated C-reactive protein (CRP) Encounter for therapeutic drug level monitoring COMPREHENSIVE METABOLIC PANEL STAT 06/29/2020 6:00 PM EST Other general symptoms and signs Acute abdomen Other specified abnormal findings of blood chemistry Elevated C-reactive protein (CRP) Encounter for therapeutic drug level monitoring documented in this encounter Results * EXTRA LIGHT BLUE (06/29/2020 6:00 PM EST) Blood VENOUS BLOOD / Unknown 06/29/2020 6:00 PM EST 06/29/2020 10:09 PM EST us Preet Cox MD HEMATOLOGY ORDERABLES Final Re sult Performing Organization Address [facility]/[place] [address] * VANCOMYCIN LEVEL TROUGH (06/29/2020 6:00 PM EST) Vanco Tr 19.7 10.0-<20.0 mcg/mL 06/29/2020 10:41 PM EST [facility] [employer] Blood VENOUS BLOOD / Unknown 06/29/2020 6:00 PM EST 06/29/2020 10:09 PM EST Narrative [facility] - 06/29/2020 10:41 PM EST Minimum serum concentration for infection control is 10 mcg/mL; a target therapeutic range of 15-20 mcg/mL is recommended for significant infections such as S. aureus. Toxicity does not correlate well with serum concentrations. Supratherapeutic levels are considered to be > 20 mcg/mL. us Preet Cox MD CHEMISTRY ORDERABLES Final Res ult Performing Organization Address [facility] Co de Phone Number [facility] [address] [place] [address] , [place] [address] * C-REACTIVE PROTEIN (06/29/2020 6:00 PM EST) CRP 2.71 <=5.00 mg/L 06/29/2020 10:41 PM EST [facility] [employer] Blood VENOUS BLOOD / Unknown 06/29/2020 6:00 PM EST 06/29/2020 10:09 PM EST us Preet Cox MD CHEMISTRY ORDERABLES Final Res ult Performing Organization Address [facility] Co de Phone Number [facility] [address] , [place] [address] * (ABNORMAL) COMPREHENSIVE METABOLIC PANEL (06/29/2020 6:00 PM EST) [facility] Sodium 142 136 - 145 mmol/L 06/29/2020 10:41 PM EST [facility] Potassium 4.2 3.5 - 5.0 mmol/L 06/29/2020 10:41 PM EST [facility] Chloride 105 98 - 107 mmol/L 06/29/2020 10:41 PM EST [facility] Total CO2 27 22 - 29 mmol/L 06/29/2020 10:41 PM EST [facility] Anion Gap 10 7 - 16 mmol/L 06/29/2020 10:41 PM EST [facility] Calcium 9.3 8.8 - 10.4 mg/dL 06/29/2020 10:41 PM EST [facility] Glucose Lvl 82 82 - 100 mg/dL 06/29/2020 10:41 PM EST [facility] BUN 22 8 - 23 mg/dL 06/29/2020 10:41 PM EST [facility] Creatinine 1.15 0.51 - 1.30 mg/dL 06/29/2020 10:41 PM EST [facility] Albumin 3.9 3.2 - 4.6 gm/dL 06/29/2020 10:41 PM EST [facility] Total Protein 6.3(L) 6.4 - 8.3 gm/dL 06/29/2020 10:41 PM EST [facility] Bili Total 0.2 0.1 - 1.3 mg/dL 06/29/2020 10:41 PM EST [facility] ALT 11 <=41 U/L 06/29/2020 10:41 PM EST [facility] AST 11 <=40 U/L 06/29/2020 10:41 PM EST [facility] Alk Phos 65 36 - 123 U/L 06/29/2020 10:41 PM EST [facility] GFR Afr Am 57(L) >=60 mL/min/1.7 3 m2 06/29/2020 10:41 PM EST [facility] GFR Non Afr Am 50(L) >=60 mL/min/1.7 3 m2 06/29/2020 10:41 PM EST [facility] Comment: This estimated GFR was calculated [...] muscle mass. Blood VENOUS BLOOD / Unknown 06/29/2020 6:00 PM EST 06/29/2020 10:09 PM EST us Preet Cox MD CHEMISTRY ORDERABLES Final Res ult Performing Organization Address [facility] de Phone Number [facility] [employer] [address], [place] [address] [facility] [address] [place] [id number] * SEDIMENTATION RATE AUTOMATED (06/29/2020 6:00 PM EST) Pathologist [facility] Sed Rate 23 0 - 30 mm/hr 06/29/2020 10:42 PM EST [facility] Blood VENOUS BLOOD / Unknown 06/29/2020 6:00 PM EST 06/29/2020 10:09 PM EST us Preet Cox MD HEMATOLOGY ORDERABLES Final Re sult Performing Organization Address [facility] Co de Phone Number [address] [address] * (ABNORMAL) CBC (06/29/2020 6:00 PM EST) WBC 5.5 3.7 - 10.3 x10(3)/mcL 06/29/2020 10:[address] [facility] RBC 3.64(L) 3.90 - 5.20 x10(6)/mcL 06/29/2020 10:24 PM EST [facility] Hgb 10.9(L) 11.2 - 15.7 g/dL 06/29/2020 10:24 PM EST [facility] Hct 34.5 34.0 - 45.0 % 06/29/2020 10:24 PM EST [facility] MCV 94.8 80.0 - 100.0 fL 06/29/2020 10:24 PM EST [facility] MCH 29.9 26.0 - 34.0 pg 06/29/2020 10:24 PM EST [facility] MCHC 31.6 30.7 - 35.5 g/dL 06/29/2020 10:24 PM EST [facility] RDW 13.7 <=14.9 % 06/29/2020 10:24 PM EST [facility] Platelet 197 155 - 369 x10(3)/mcL 06/29/2020 10:24 PM EST [facility] MPV 13.1(H) 8.8 - 12.5 fL 06/29/2020 10:24 PM EST [facility] Blood VENOUS BLOOD / Unknown 06/29/2020 6:00 PM EST 06/29/2020 10:09 PM EST us Preet Cox MD HEMATOLOGY ORDERABLES Final Re sult [facility] [address] [facility] , [place] [address] documented in this encounter Visit Diagnoses Diagnosis Other general symptoms and signs Acute abdomen Abdominal pain, unspecified site Other specified abnormal findings of blood chemistry Elevated C-reactive protein (CRP) Encounter for therapeutic drug level monitoring Encounter for therapeutic drug monitoring documented in this encounter Care Teams Jive Developer Relationship Specialty Start Date End Date Rah Mauricio [address] [place] [address] [address] [place] [address] PCP - General Family Medicine 06/26/16 documented as of this encounter
--- OUTSIDE RECORDS SUMMARY | 2024-12-23 19:49 | XMS_ITS | Clinical Summary ---
Author Organization [facility] Address [address] [facility] [address] [place] [phone] Phone Care Team Providers Care Correction Officer [facility] Name Role Phone Rah Mauricio Primary Care Provider [phone] Allergies No known active allergies Medications citalopram (CELEXA) 10 mg Oral Tablet Take by mouth daily. Active fUROsemide (LASIX) 20 mg Oral Tablet Take 1 Tab by mouth daily. 30 Tab 09/03/19 21 Active cyanocobalamin 1,000 mcg Oral Tablet Take 1 Tab by mouth daily. 30 Tab 09/03/19 21 Active folic acid (FOLVITE) 1 mg Oral Tablet Take 1 Tab by mouth daily. 30 Tab 09/03/19 21 Active Cholecalciferol , Vitamin D3, (VITAMIN D3) 50 mcg (2,000 unit) Oral Capsule Take 1 Cap by mouth daily. 30 Cap 09/03/19 21 Active irbesartan (AVAPRO) 150 mg Oral Tablet Take 75 mg by mouth daily. Active OZEMPIC 0.25 mg or 0.5 mg (2 mg/3 mL) SubQ Pen Injector Inject 0.5 mg as directed every 5 days. once a week (on Saturday) 07/02/19 24 Active ezetimibe (ZETIA) 10 mg Oral TabletIndicatio ns:Mixed hyperlipidemia, Statin intolerance Take 1 Tablet by mouth daily. 30 Tablet 2 11/26/19 25 Active amoxicillin (AMOXIL) 500 mg Oral Capsule Take 500 mg by mouth 3 times daily. for 10 days 11/20/19 25 Active ezetimibe (ZETIA) 10 mg Oral TabletIndicatio ns:Mixed hyperlipidemia, Statin intolerance Take 1 Tablet by mouth daily. 30 Tablet 2 08/27/19 25 025 Discontinued Hospital, Clinic, or Other Facility Administered Medication Ordered Dose Route Frequency Start Date End Date Status triamcinolone acetonide (KENALOG-40) injection 40 mgIndications:Primary osteoarthritis of both knees 40 mg IAtc ONCE PRN 12/15/2024 12/15/2024 Ended triamcinolone acetonide (KENALOG-40) injection 40 mgIndications:Primary osteoarthritis of both knees 40 mg IAtc ONCE PRN 12/15/2024 12/15/2024 Ended BUPivacaine HCl (MARCAINE) 0.25 % (2.5 mg/mL) injection 2 mLIndications:Primary osteoarthritis of both knees 2 mL IAtc ONCE PRN 12/15/2024 12/15/2024 Ended BUPivacaine HCl (MARCAINE) 0.25 % (2.5 mg/mL) injection 2 mLIndications:Primary osteoarthritis of both knees 2 mL IAtc ONCE PRN 12/15/2024 12/15/2024 Ended Active Problems Problem Noted Date Diagnosed Date Type 2 diabetes mellitus 08/25/2024 Overview (08/25/2024): On Ozempic Assessment & Plan (08/25/2024 12:52 PM EDT): Well controlled as suggested by HbA1c 5.8% & random urine microalbumin :creatinine ratio < 12 defer to primary team. Localized osteoarthritis of right knee Leukocytosis 08/13/2020 Septic shock 08/13/2020 Transaminitis 08/13/2020 Common bile duct dilatation 08/13/2020 Ventral hernia without obstruction or gangrene 0 08/13/2020 Anxiety Hypertension Overview (10/28/2023): Remains on Avapro & Lasix Assessment & Plan (08/25/2024 12:50 PM EDT): Current BP control seems reasonable & would keep drug therapy unchanged. Assessment & Plan (11/18/2023 12:37 PM EDT): K 4.0 Current BP control seems reasonable & would keep drug therapy unchanged. Assessment & Plan (10/28/2023 3:57 PM EDT): Current BP control seems reasonable & would keep drug therapy unchanged. Arthritis Skin ulcer of right heel, limited to breakdown o f skin Elevated LFTs CKD stage G2/A2, GFR 60-89 a nd albumin creatinine ratio 30-299 mg/g Overview (08/25/2024): Had been admitted to the hospital at [facility] in 02/2023 for hyperkalemia and MARTIN, thought to be secondary to hyperkalemia. Taken off Spironolactone & Sulindac Work up showed unchanged eGFR 60 ml/min Renal USN R/O obstructive uropathy & had 10.1 cm kidneys bilaterally Assessment & Plan (08/25/2024 12:49 PM EDT): Latest renal function was BUN/S.cr of 27/1.0 (08/18/24) compared to 23/1.1 (11/04/2023) Assessment & Plan (11/18/2023 12:35 PM EDT): Work up showed unchanged eGFR 56-60 ml/min Renal USN R/O obstructive uropathy & had 10.1 cm kidneys bilaterally Latest renal function was BUN/S.cr of 23/1.1 (11/04/2023) Assessment & Plan (10/28/2023 3:56 PM EDT): Last labs were BUN/S.cr of 32/1.15 (05/2023) Other constipation Acute cystitis without hematuria Hydronephrosis Pelvicaliectasis Overview (10/28/2023): Bilaterally by USN in 2020 Assessment & Plan (11/18/2023 12:37 PM EDT): Resolved Assessment & Plan (10/28/2023 3:57 PM EDT): Reassess Resolved Problems Problem Noted Date Diagnosed Date Resolved Date Gram-negative bacteremia Encounters Date Type Department Care Team Description 12/15/2024 9:15 AM EDT Office Visit [facility] Anuj [address] [address] Raphael Wylie APRN Primary osteoarthritis of both knees (Primary Dx) 12/08/2024 10:45 AM EDT Office Visit [facility] Anuj [address] [address] Raphael Wylie APRN Primary osteoarthritis of both knees (Primary Dx) 11/24/2024 Refill [facility] [address] [place] [phone] Maikel King, DO Medication Refill 10/16/2024 Patient Outreach [place] [address] [place] [phone] Omar Morillo MD [facility] Enrollment (Pt declined and hung up) 10/16/2024 Patient Outreach [place] [address] [place] [phone] Omar Morillo MD [facility] Enrollment ([facility]- [phone]) 09/22/2024 11:00 AM EDT Ancillary Procedure [facility] [address] [address] Raphael Wylie APRN Primary osteoarthritis of both knees 09/22/2024 10:45 AM EDT [facility] [address] [address] Raphael Wylie APRN Primary osteoarthritis of both knees (Primary Dx) from Last 3 Months Immunizations Immunization Administration Dates Next Due Pneumococcal Polysaccharide 23 Valent (Deferred: - pt said she has to wait 08/31/20 because she had COVID) Surgical History Surgery Date Site/Laterality Comments ORTHOPEDIC SURGERY ABDOMEN SURGERY Medical History Medical History Date Comments Hypertension Diabetes mellitus (HCC) Arthritis Anxiety Social History Tobacco Use Types Packs/Day Years Used Date Smoking Tobacco: Never Passive Smoke Exposure: Past Smokeless Tobacco: Never Tobacco Cessation:Counseling Given: Not Answered Alcohol Use Standard Drinks/Week Comments Not Currently 0 (1 standard drink = 0.6 oz pur e alcohol) Comments No Sex and Gender Information Value Date Recorded Sex Assigned at Not on file Legal Sex Female 9:49 AM EDT Gender Identity Not on file Sexual Orientation Not on file Obstetrics History Last Filed Vital Signs Vital Sign Reading Time Taken Comments Blood Pressure 118/68 09/08/2024 10:28 AM EDT Pulse 62 09/08/2024 10:28 AM EDT Temperature 36.2 C (97.2 F) 08/24/2020 6:25 PM EDT Respiratory Rate 18 08/24/2020 6:25 PM EDT Oxygen Saturation 96% 09/08/2024 10: 28 AM EDT Inhaled Oxygen Concentration - - Weight 119.9 kg (264 lb 6.4 oz) 025 10:28 AM EDT Height 160 cm (5' 3 ) 09/08/2024 10:28 AM EDT Body Mass Index 46.84 09/08/2024 10:28 AM EDT Plan of Treatment Upcoming Encounters Date Type Department Care Team (Late st Contact Info) Description 03/02/2025 10:45 AM EDT Office Visit [facility] [address] [place] [address] Raphael Wylie, JOHN [address] [place] [address] 07/27/2025 12:00 PM EDT Office Visit [facility] [place] [address] [facility] [address] [address] Omar Morillo MD [address] [facility] [address] 09/07/2025 11:00 AM EDT Office Visit [facility] [address] [place] [phone] Maikel King DO [address] [place] [address] Health Maintenance Due Date Last Done Comments Wellness Exam Medicare 1958 Diabetic Eye Exam 08/01/1971 Breast Cancer Screening 1993 Cologuard 1998 Colon Cancer Screening 1998 Colonoscopy 1998 FIT 1998 Sigmoidoscopy 1998 Virtual Colonography 1998 Zoster (1 of 2) 08/01/2003 RSV or 60+ (1 - Risk 60-74 years 1-dose series) 2013 Bone Density Screening 2018 Hemoglobin A1c 01/18/2021 07/18/2020 COVID-19 Vaccine ( season) 2024 03/05/2022, 04/07/2021, 10/06/2020, Additional history exists Lipids 03/19/2024 03/19/2023 Influenza Vaccine (#1) 2025 3, 03/20/2022, 02/28/2021, Additional history exists Kidney Health: eGFR 08/18/2025 08/18/2024, 06/09/2024, 11/04/2023, Additional history exists Kidney Health: uACR 08/18/2025 08/18/2024, 5 DTaP/TDaP/Td (2 - Td or Tdap) 07/02/2027 07/02/2017, 07/09/1996 Hepatitis C Screening Completed 08/13/2020 Pneumococcal Vaccine 50+ Completed 02/28/2021, 10/2019 Hepatitis B Vaccine Aged Out No longe r eligible based on patient's age to complete this topic Meningococcal B Vaccine Aged Out No l onger eligible based on patient's age to complete this topic Procedures Procedure Name Priority Date/Time Associated Diagnosis Comments [place]Y ARTHROCENTESIS LARGE JOINT W/O US BILATERAL Routine 12/15/2024 9:15 AM EDT Primary osteoarthritis of both knees XR KNEE BILATERAL AP LATERAL AND SUNRISE STANDING Routine 09/22/2024 11:18 AM EDT Primary osteoarthritis of both knees WY ARTHROCENTESIS LARGE JOINT W/O US BILATERAL Routine 09/22/2024 10:45 AM EDT Primary osteoarthritis of both knees MICROALBUMIN/CREATININ E RATIO URINE Routine 08/18/2024 11:32 AM EDT CKD stage 3a, GFR 45-59 ml/min (HCC) RENAL FUNCTION PANEL Routine 08/18/2024 11:32 AM EDT CKD stage 3a, GFR 45-59 ml/min (HCC) Primary hypertension LIPID PANEL REFLEX Routine 03/19/2023 8: 55 AM EST Type 2 diabetes mellitus without complication, without long-term current use of insulin (HCC) ACUTE HEPATITIS PANEL STAT 08/13/2020 4:08 PM EDT HEMOGLOBIN A1C Routine 07/18/2020 12:30 PM EDT Encounter for screening for diabetes mellitus Other general symptoms and signs Elevated erythrocyte sedimentation rate Elevated C-reactive protein (CRP) from Last 3 Months or Most Recently Relevant to Health Maintenance Results * [place] ARTHROCENTESIS LARGE JOINT W/O US BILATERAL (12/15/2024 [...] to verify the correct patient, procedure, equipment, software support specialist and site/side marked as required. Patient was prepped and draped in the usual sterile fashion. Raphael Phillymello TABLE MAKER PROCEDURE/MINOR SURGICAL O RDERABLES Final Result Performing Organization Address [facility] Co de Phone Number [facility] * XR KNEE BILATERAL AP LATERAL AND SUNRISE STANDING (09/22/2024 11:18 AM EDT) Narrative Marshall Antoine - 09/22/2024 11:18 AM EDT Please see physician's note from office encounter for x-ray imaging result Raphael Shannanmickie AYOUBN IMG DIAGNOSTIC IMAGING ORD ERABLES Final Result * [place] ARTHROCENTESIS LARGE JOINT W/O US BILATERAL (09/22/2024 10:45 AM EDT) Narrative [facility] - 09/22/2024 10:45 AM EDT Nicolle Pavon MA 09/22/2024 3:00 PM Large Joint Injection/Arthrocentesis: bilateral knee on 09/22/2024 10:45 AM Indications: pain Details: 22 G needle, [...] to verify the correct patient, procedure, equipment, software support specialist and site/side marked as required. Patient was prepped and draped in the usual sterile fashion. Raphael Shannanmickie TABLE MAKER PROCEDURE/MINOR SURGICAL O RDERABLES Final Result Performing Organization Address [facility] Co de Phone Number [facility] * MICROALBUMIN/CREATININE RATIO URINE (08/18/2024 11:32 AM EDT) Urine Microalb <12.0 mg/L 08/18/2024 4:40 PM EDT [facility] Urine Creatinine 189.0 mg/dL 08/19/19 25 4:40 PM EDT [facility] Ur Microalb/Creat 025 4:40 PM EDT [facility] Comment: Because the albumin level is below the level of detection in this urine specimen, the laboratory is unable to calculate a reliable albumin/creatinine ratio. Microalbuminuria is unlikely if the urine albumin concentration is less than 20- 30 mg/L in a random specimen. Urine STRUCTURE OF URINARY TRACT PROPER / Unknown 08/18/2024 11:32 AM EDT 08/18/2024 11:32 AM EDT us Carlos A Wolf MD URINE ORDERABLES Final R esult [facility], [address] , [place] [address] * (ABNORMAL) RENAL FUNCTION PANEL (08/18/2024 11:32 AM EDT) Sodium 141 136 - 145 mmol/L 08/18/2024 4:42 PM EDT [facility] Potassium 4.5 3.5 - 5.0 mmol/L 08/18/2024 4:42 PM EDT [facility] Chloride 103 98 - 107 mmol/L 08/18/2024 4:42 PM EDT [facility] Total CO2 27 22 - 29 mmol/L 08/18/2024 4:42 PM EDT [facility] Anion Gap 11 7 - 16 mmol/L 08/18/2024 4:42 PM EDT [facility] Calcium 9.4 8.8 - 10.4 mg/dL 08/18/2024 4:42 PM EDT [facility] Glucose Lvl 91 70 - 99 mg/dL 08/18/2024 4:42 PM EDT [facility] BUN 27(H) 8 - 23 mg/dL 08/18/2024 4:42 PM EDT [facility] Creatinine 1.00 0.51 - 1.30 mg/dL 08/18/2024 4:42 PM EDT [facility], [facility] Albumin 3.8 3.2 - 4.6 gm/dL 08/18/2024 4:42 PM EDT [facility], [facility] Phosphorus 3.3 2.5 - 4.5 mg/dL 08/18/2024 4:42 PM EDT [facility], [facility] eGFR (CKD-EPIcr 2020) 60 >=60 mL/min/1.7 3 m2 08/18/2024 4:42 PM EDT [facility], [facility] Comment:Estimated GFR was ca lculated using the CKD-EPIcr (2020) equation refit without race. The equation is recommended by the National Kidney Foundation - [place] [employer] of Nephrology Task Force. Blood VENOUS BLOOD / Unknown Venipuncture / Unknown 08/18/2024 11:32 AM EDT 08/18/2024 11:32 AM EDT Carlos A Wolf MD CHEMISTRY ORDERABLES Fin al Result [facility], [facility] [address] [facility] , [place] [address] * (ABNORMAL) LIPID PANEL REFLEX (03/19/2023 8:55 AM EST) Cholesterol 188 <200 mg/dL 03/19/2023 5:38 PM EST [facility] [employer], [facility] Comment: < 200 Desirable 200 - 239 Borderline High >= 240 High Triglyceride 108 <150 mg/dL 03/19/2023 5:38 PM EST [facility], [facility] Comment: < 150 Normal 150 - 199 Borderline High 200 - 499 High >= 500 Very High HDL 47 >=40 mg/dL 03/19/2023 5:38 PM EST [facility], [facility] Comment: > 60 Optimal 40 - 60 Acceptable < 40 Low LDL Calculated 121(H) <100 mg/dL 03/19/2023 5:38 PM EST [facility], [facility] Non-HDL-C Calculated 141(H) <=129 mg/dL 03/19/2023 5:38 PM EST [facility], [facility] Comment: <130 Desirable 130-159 Above Desirable 160-189 Borderline High 190-219 High >= 220 Very High Fasting Specimen? Yes None 023 5:38 PM EST [facility] Blood VENOUS BLOOD / Unknown Venipuncture / Unknown 03/19/2023 8:55 AM EST 03/19/2023 8:55 AM EST Maikel King DO CHEMISTRY ORDERABLES Final R esult Performing Organization Address [facility] Co de Phone Number [facility], [address] , [address] [place] [phone] [facility] [address] [place] [address] * ACUTE HEPATITIS PANEL (08/13/2020 4:08 PM EDT) Pathologist [facility] Hep Bs Ag Non-Reacti ve Non-Reacti ve 08/13/2020 5:32 PM EDT [facility], [facility] Hep B Core IgM Non-Reacti ve Non-Reacti ve 08/13/2020 5:32 PM EDT [facility], [facility] Hep A IgM Non-Reacti ve Non-Reacti ve 08/13/2020 5:32 PM EDT [facility], [facility] Hep C Ab Non-Reacti ve Non-Reacti ve 08/13/2020 5:32 PM EDT [facility], [facility] Blood VENOUS BLOOD / Unknown Venipuncture / Unknown 08/13/2020 4:08 PM EDT 08/13/2020 4:14 PM EDT Hermelindo Doss MD CHEMISTRY ORDERABLES Final Res ult Performing Organization Address City/[facility]/ZIP Co de Phone Number [facility], [address] , [place] [address] * HEMOGLOBIN A1C (07/18/2020 12:30 PM EDT) Pathologist [facility] Hgb A1C 5.6 4.2 - 5.6 % 07/18/2020 9:22 PM EDT [facility], [facility] Est. Avg Glucose 114 mg/dL 07/18/2020 9:22 PM EDT [employer] Blood VENOUS BLOOD / Unknown 07/18/2020 12:30 PM EDT 07/18/2020 7:20 PM EDT Narrative [facility] - 07/18/2020 9:22 PM EDT REFERENCE RANGE: Normal: 4.0-5.6% Pre-diabetes: 5.7-6.4% Provisional diagnosis of diabetes: >6.4% Hgb F>10% and anything which shortens red cell survival, such as hemolytic anemia, or unstable hemoglobin variants such as HbSS, HbSC, or HbCC, will lower the HbA1c value associated with a given level of glycemic control. us Preet Cox MD CHEMISTRY ORDERABLES Final Res ult [employer] [address] [facility] , [place] [address] from Last 3 Months or Most Recently Relevant to Health Maintenance Insurance [place]ICARE [place] [address] [place] [address] [place] [address] [place] [address] [place] Advance Directives For more information, please contact: [phone] * Full Code (Latest Code Status on File) Date Activated Date Inactivated Comments 08/13/2020 8:28 PM 08/23/2020 7:53 PM * Full Code Date Activated Date Inactivated Comments 08/13/2020 8:27 PM 08/13/2020 8:28 PM Care Teams Correction Officer Penitentiary Relationship Specialty Start Date End Date Rah Mauricio [address] [place] [address] [address] [place] [address] PCP - General Family Medicine 06/26/16
[2024-12-23 20:59] LABS: Hematocrit 40.8 % (37.0-47.0); Hemoglobin 12.8 g/dL (12.2-16.2); Immature Granulocytes % 0.2 %; Mean Corpuscular HGB Conc 31.4 g/dL (31.8-35.4); Mean Corpuscular Hemoglobin 30.7 pg (27.0-31.2); Mean Corpuscular Volume 97.8 fl (81-99); Nucleated Red Blood Cells % 0 %; Platelet Count 179 K/mm3 (142-424); Red Blood Count 4.17 M/mm3 (4.20-5.40); Red Cell Distribution Width-SD 48.0 fL; White Blood Count 5.6 K/mm3 (4.8-10.8)
[2024-12-23 21:39] LABS: Alanine Aminotransferase 10 U/L (12-78); Albumin Level 3.9 g/dl (3.5-5.0); Albumin/Globulin Ratio 1.6 (1.1-1.8); Alkaline Phosphatase 67 U/L (38-126); Anion Gap 10.6 mEq/L (5-15); Aspartate Amino Transferase 18 U/L (14-36); Bilirubin,Total 0.5 mg/dl (0.2-1.3); Blood Urea Nitrogen 22 mg/dl (7-17); Calcium 9.3 mg/dl (8.4-10.2); Carbon Dioxide 28 mmol/L (22.0-30.0); Chloride 101 mmol/L (98-107); Cholesterol 155 mg/dl (140-200); Creatinine,Serum 1.00 mg/dl (0.52-1.04); Estimated Glomerular Filt Rate 55 ml/min (>60); GFR (African American) 66 ML/MIN (>60); Globulin 2.4 g/dL (1.3-3.2); Glucose 85 mg/dl (74-100); HDL Cholesterol 48 mg/dl (40-60); Potassium 4.6 mmoL/L (3.5-5.1); Sodium 135 mmol/L (136-145); Total Protein,Serum 6.3 g/dl (6.3-8.2); Triglycerides 82 mg/dl (30-150)
[2024-12-23 21:56] LABS: 25-OH Vitamin D, Total 42.5 ng/mL (30-100)
[2024-12-23 22:29] LABS: Vitamin B12 966 pg/mL (239-931)
[2024-12-23 23:18] LABS: Hemoglobin A1C 5.5 % (4.0-6.0)
== END 2024-12-23 23:59 | disposition home or self-care (01) ==
LOC: LAB 19:46
PROVIDERS: PCP Nurse Practitioner; Visit Provider Nurse Practitioner
DX: E55.9 Vitamin D deficiency, unspecified (principal); E11.9 Type 2 diabetes mellitus without complications; K21.9 Gastro-esophageal reflux disease without esophagitis; I12.9 Hypertensive chronic kidney disease with stage 1 through stage 4 chronic kidney disease, or unspecified chronic kidney disease; N18.9 Chronic kidney disease, unspecified; E66.9 Obesity, unspecified; Z11.59 Encounter for screening for other viral diseases
CPT/HCPCS: 80053; 80061; 82306; 82607; 83036; 85025; 87389

== ENCOUNTER 2025-03-23 11:35 | Outpatient (CLI) | payer MEDICARE, MEDICAID, SELFPAY ==
--- OUTSIDE RECORDS SUMMARY | 2025-03-02 09:45 | XMS_ITS | Encounter Summary ---
Author Organization [facility] Address [address] [place] [address] Care Team Providers Care Paramedic Instructor Name Role Phone Rah Mauricio Primary Care Provider [phone] Reason for Visit * Reason Comments Follow-up Injections Follow-up Injections Encounter Details Date Type Department Care Team (Latest Contact Info) Description 03/02/2025 10:45 AM EDT Office Visit [facility] [address] [place], [place] [phone] Raphael Wylie APRN [address] [place], [place] [phone] Primary osteoarthritis of both knees (Primary Dx) [...] Progress Notes * Raphael Wylie APRN - 03/02/2025 10:45 AM EDT Images from the original note were not included. [facility] [address] [place], [place] [phone]) [place], [place] [phone]) [place], [place] Kiara Sheets 1955 Date of Visit: 03/02/2025 Chief Complaint: Chief Complaint Patient presents with Right Knee - Follow-up, Injections Left Knee - Follow-up, Injections HISTORY: The patient [...] is Dr. Agarwal. Please note that this retort load expediter was created using voice recognition software. Any errors are unintentional, and may be due to voice recognition retort load expediter. Cosigned by Fredy Agarwal MD at 03/03/2025 10:17 AM EDT * Nicolle Pavon MA - 03/02/2025 10:45 AM EDTAssociated Order(s): Large Joint Injection/Arthrocentesis: bilateral knee Large Joint Injection/Arthrocentesis: bilateral knee on 03/02/2025 10:45 AM Indications: pain Details: 22 G [...] called to verify the correctpatient, procedure, equipment, service support representative and site/side marked as required. Patient was prepped and draped in the usual sterile fashion. documented in this encounter Plan of Treatment Upcoming Encounters Date Type Department Care Team (Late st Contact Info) Description 05/11/2025 3:00 PM EST Office Visit [facility] [address] [facility] [address] [place] [address] Raphael Wylie, JOHN [address] [place] [address] 07/27/2025 12:00 PM EDT Office Visit [facility] Nephrology [place] [address] [facility] [address] [phone] Omar Morillo MD [address] [facility] [address] [address] 09/07/2025 11:00 AM EDT Office Visit [facility] [address] [place] [phone] Maikel King DO [address] [place] [address] documented as of this encounter Procedures Procedure Name Priority Date/Time Associated Diagnosis Comments [place] ARTHROCENTESIS LARGE JOINT W/O US BILATERAL Routine 03/02/2025 10:45 AM EDT Primary osteoarthritis of both knees documented in this encounter Results * [place] ARTHROCENTESIS LARGE JOINT W/O US BILATERAL (03/02/2025 10:45 AM EDT) Narrative [facility] - 03/02/2025 10:45 AM EDT Nicolle Pavon MA 03/02/2025 11:52 AM Large Joint Injection/Arthrocentesis: bilateral knee on 03/02/2025 10:45 AM Indications: pain Details: 22 G [...] to verify the correct patient, procedure, equipment, service support representative and site/side marked as required. Patient was prepped and draped in the usual sterile fashion. Raphael Wylie TRAFFIC SIGNAL TECHNICIAN PROCEDURE/MINOR SURGICAL O RDERABLES Final Result [facility] [...] Intra-articular, ONCE PRN, 1 dose, Starting on Sat03/02/25 at 1045, Until Sat03/02/25 at 1045, Dx: 1. Primary osteoarthritis of both kneesIndications:Primary osteoarthritis of both knees Given 03/02/2025 10:45 AM EDT 2 mL Left Knee BUPivacaine HCl (MARCAINE) 0.25 % (2.5 mg/mL) injection 2 mL 2 mL, Intra-articular, ONCE PRN, 1 dose, Starting on Sat03/02/25 at 1045, Until Sat03/02/25 at 1045, Dx: 1. Primary osteoarthritis of both kneesIndications:Primary osteoarthritis of both knees Given 03/02/2025 10:45 AM EDT 2 mL Right Knee triamcinolone acetonide (KENALOG-40) injection 40 mg 40 mg, Intra-articular, ONCE PRN, 1 dose, Starting on Sat03/02/25 at 1045, Until Sat03/02/25 at 1045, Dx: 1. Primary osteoarthritis of both kneesIndications:Primary osteoarthritis of both knees Given 03/02/2025 10:45 AM EDT 40 mg Left Knee triamcinolone acetonide (KENALOG-40) injection 40 mg 40 mg, Intra-articular, ONCE PRN, 1 dose, Starting on Sat03/02/25 at 1045, Until Sat03/02/25 at 1045, Dx: 1. Primary osteoarthritis of both kneesIndications:Primary osteoarthritis of both knees Given 03/02/2025 10:45 AM EDT 40 mg Right Knee documented in this encounter Care Teams Paramedic Instructor Relationship Specialty Start Date End Date Rah Mauricio Replaced by [facility] [address] [place] [address] PCP - General Family Medicine 06/26/16 documented as of this encounter
[2025-03-23 15:19] LABS: Hemoglobin A1C 5.5 % (4.0-6.0)
[2025-03-23 15:35] LABS: Alanine Aminotransferase 13 U/L (12-78); Albumin Level 4.1 g/dl (3.5-5.0); Albumin/Globulin Ratio 1.6 (1.1-1.8); Alkaline Phosphatase 64 U/L (38-126); Anion Gap 9.8 mEq/L (5-15); Aspartate Amino Transferase 20 U/L (14-36); Bilirubin,Total 0.5 mg/dl (0.2-1.3); Blood Urea Nitrogen 33 mg/dl (7-17); Calcium 9.4 mg/dl (8.4-10.2); Carbon Dioxide 27 mmol/L (22.0-30.0); Chloride 102 mmol/L (98-107); Creatinine,Serum 1.00 mg/dl (0.52-1.04); Estimated Glomerular Filt Rate 55 ml/min (>60); GFR (African American) 66 ML/MIN (>60); Globulin 2.5 g/dL (1.3-3.2); Glucose 96 mg/dl (74-100); Potassium 4.8 mmoL/L (3.5-5.1); Sodium 134 mmol/L (136-145); Total Protein,Serum 6.6 g/dl (6.3-8.2)
--- OUTSIDE RECORDS SUMMARY | 2025-03-24 15:11 | XMS_ITS | Encounter Summary ---
Author Organization [facility] [place] [address] Care Team Providers Care Office Engineer Name Role Phone HangRah trevizo Primary Care Provider [phone] Encounter Details Date Type Department Care Team (Late st Contact Info) Description 06/22/2020 Lab Requisition [place] [address] Preet Cox MD [address] [place] [address] Other general symptoms and signs; [...] Description 05/11/2025 3:00 PM EST Office Visit [facility] [address] [place] [address] Raphael Wylie APRN [address] [place] [address] 07/27/2025 12:00 PM EDT Office Visit [facility] Nephrology [place] [address] [place], [place] [id number] Omar Morillo MD [address] [place] [address] 09/07/2025 11:00 AM EDT Office Visit [facility] [address] [place] [address] Maikel King DO [address] [place] [address] documented as of this encounter Procedures Procedure [...] Final Re sult Performing Organization Address [facility]/ZIP Co de Phone Number [facility] [address] [place] [phone] * (ABNORMAL) VANCOMYCIN LEVEL TROUGH (06/22/2020 5:13 PM EST) Pathologist [facility] Vanco Tr 27.0(HH) 10.0-<20.0 mcg/mL 06/22/2020 9:06 PM EST [facility] [employer] Blood VENOUS BLOOD / Unknown 06/22/2020 5:13 PM EST 06/22/2020 7:13 PM EST Narrative PREFERRED Number 100 - 06/22/2020 9:06 PM EST Minimum serum concentration for infection control is 10 mcg/mL; a target therapeutic range of 15-20 mcg/mL is recommended for significant infections such as S. aureus. Toxicity does not correlate well with serum concentrations. Supratherapeutic levels are considered to be > 20 mcg/mL. us Preet Cox MD CHEMISTRY ORDERABLES Final Res ult Performing Organization Address [facility] Co de Phone Number [employer] [address] [place] [address] , [place] [address] * C-REACTIVE PROTEIN (06/22/2020 5:13 PM EST) [facility] CRP 4.03 <=5.00 mg/L 06/22/2020 8:38 PM EST PREFERRED Number 100 Blood VENOUS BLOOD / Unknown 06/22/2020 5:13 PM EST 06/22/2020 7:13 PM EST us Preet Cox MD CHEMISTRY ORDERABLES Final Res ult Performing Organization Address [facility] Co de Phone Number [facility] [employer] [address] , [place] [address] * (ABNORMAL) COMPREHENSIVE METABOLIC PANEL (06/22/2020 5:13 PM EST) Sodium 141 136 - 145 mmol/L 06/22/2020 8:38 PM EST [facility] Potassium 4.1 3.5 - 5.0 mmol/L 06/22/2020 8:38 PM EST [facility] Chloride 106 98 - 107 mmol/L 06/22/2020 8:38 PM EST [facility] Total CO2 27 22 - 29 mmol/L [...] 06/22/2020 8:38 PM EST [facility] GFR Afr Am 51(L) >=60 mL/min/1.7 3 m2 06/22/2020 8:38 PM EST [facility] GFR Non Afr Am 45(L) >=60 mL/min/1.7 3 m2 06/22/2020 8:38 PM EST [facility] Comment: This estimated GFR was [...] Final Res ult Performing Organization Address [facility] de Phone Number [address] , [place] [address] [facility] [address] [place] [address] * (ABNORMAL) SEDIMENTATION RATE AUTOMATED (06/22/2020 5:13 PM EST) Pathologist [facility] Sed Rate 34(H) 0 - 30 mm/hr 06/22/2020 8:14 PM EST [facility] Blood VENOUS BLOOD / Unknown 06/22/2020 5:13 PM EST 06/22/2020 7:13 PM EST us Preet Cox MD HEMATOLOGY ORDERABLES Final Re sult Performing Organization Address [facility] Co de Phone Number [facility] [employer] , [place] [address] * (ABNORMAL) CBC (06/22/2020 5:13 PM EST) WBC 7.2 3.7 - 10.3 x10(3)/mcL 06/22/2020 7:[address] [facility] [employer], [facility] RBC 3.77(L) 3.90 - 5.20 x10(6)/mcL 06/22/2020 7:[address] [facility] Hgb 10.9(L) 11.2 - 15.7 g/dL 06/22/2020 [...] Re sult [facility] [address] , [place] [address] documented in this encounter Visit Diagnoses Diagnosis Other general symptoms and signs Elevated erythrocyte sedimentation rate Elevated sedimentation rate Other specified abnormal findings of blood chemistry Elevated C-reactive protein (CRP) documented in this encounter Care Teams Office Engineer Relationship Specialty Start Date End Date Rah Mauricio [address] [place] [address] [address] [facility] [address] PCP - General Family Medicine 06/26/16 documented as of this encounter
--- OUTSIDE RECORDS SUMMARY | 2025-03-24 15:11 | XMS_ITS | Encounter Summary ---
Author Organization [facility] [address] Care Team Providers Care Airconditioning Drafting Officer Name Role Phone HangRah trevizo Primary Care Provider [phone] Encounter Details Date Type Department Care Team (Late st Contact Info) Description 06/29/2020 [facility] [place] [address] Preet Cox MD [address] [facility] [address] [place] [address] Other general symptoms and signs; [...] [facility] [address] [place] [address] Raphael Wylie APRN [address] [place] [phone] 07/27/2025 12:00 PM EDT Office Visit [facility] Nephrology [place] [address] [place] [address] Omar Morillo MD [address] [place] [address] 09/07/2025 11:00 AM EDT Office Visit [facility] [address] [place] [address] Maikel King DO [address] [place] [address] documented as of this encounter [...] ORDERABLES Final Re sult Performing Organization Address [facility]/[place] [address] * VANCOMYCIN LEVEL TROUGH (06/29/2020 6:00 PM EST) Vanco Tr 19.7 10.0-<20.0 mcg/mL 06/29/2020 10:41 PM EST [facility] Blood VENOUS BLOOD / Unknown 06/29/2020 6:00 PM EST 06/29/2020 10:09 PM EST Narrative [facility] [employer] - 06/29/2020 10:41 PM EST Minimum serum concentration for infection control is 10 mcg/mL; a target therapeutic range of 15-20 mcg/mL is recommended for significant infections such as S. aureus. Toxicity does not correlate well with serum concentrations. Supratherapeutic levels are considered to be > 20 mcg/mL. us Preet Cox MD CHEMISTRY ORDERABLES Final Res ult Performing Organization Address [facility] Co de Phone Number [employer] [address] [place] [address] , [place] [address] * C-REACTIVE PROTEIN (06/29/2020 6:00 PM EST) CRP 2.71 <=5.00 mg/L 06/29/2020 10:41 PM EST [facility] [employer] Blood VENOUS BLOOD / Unknown 06/29/2020 6:00 PM EST 06/29/2020 10:09 PM EST us Preet Cox MD CHEMISTRY ORDERABLES Final Res ult Performing Organization Address [facility] Co de Phone Number [facility] [employer] [address] [place] [address] , [place] [address] * (ABNORMAL) COMPREHENSIVE METABOLIC PANEL (06/29/2020 6:00 PM EST) [facility] Sodium 142 136 - 145 mmol/L [...] mL/min/1.7 3 m2 06/29/2020 10:41 PM EST [facility] GFR Non Afr Am 50(L) >=60 mL/min/1.7 3 m2 06/29/2020 10:41 PM EST [facility] Comment: This estimated GFR [...] ORDERABLES Final Res ult Performing Organization Address [facility] de Phone Number [facility] [employer] [address], [place] [address] [facility] [address] [place], [place] [id number] * SEDIMENTATION RATE AUTOMATED (06/29/2020 6:00 PM EST) Sed Rate 23 0 - 30 mm/hr 06/29/2020 10:42 PM EST [facility] Blood VENOUS BLOOD / Unknown 06/29/2020 6:00 PM EST 06/29/2020 10:09 PM EST us Preet Cox MD HEMATOLOGY ORDERABLES Final Re sult Performing Organization Address [facility] Co de Phone Number [address] [address] * (ABNORMAL) CBC (06/29/2020 6:00 PM EST) WBC 5.5 3.7 - 10.3 x10(3)/mcL 06/29/2020 10:[address] [facility] RBC 3.64(L) 3.90 - 5.20 x10(6)/mcL 06/29/2020 [...] Final Re sult [facility] [address] , [place] [address] documented in this encounter Visit Diagnoses Diagnosis Other general symptoms and signs Acute abdomen Abdominal pain, unspecified site Other specified abnormal findings of blood chemistry Elevated C-reactive protein (CRP) Encounter for therapeutic drug level monitoring Encounter for therapeutic drug monitoring documented in this encounter Care Teams Airconditioning Drafting Officer Relationship Specialty Start Date End Date Rah Mauricio [facility] [address] [facility] [place] [address] PCP - General Family Medicine 06/26/16 documented as of this encounter
--- OUTSIDE RECORDS SUMMARY | 2025-03-24 15:11 | XMS_ITS | Encounter Summary ---
Author Organization [place] [address] Care Team Providers Care Plumbing Inspector Name Role Phone Rah Mauricoi Primary Care Provider [phone] Encounter Details Date Type Department Care Team (Late st Contact Info) Description 07/11/2020 [facility] [place] [address] Preet Cox MD [address] [address] [place] [address] Other general symptoms and signs; [...] Description 05/11/2025 3:00 PM EST Office Visit [facility] [address] [place] [address] Raphael Wylie APRN [address] [place], [place] [phone] 07/27/2025 12:00 PM EDT Office Visit [facility] Nephrology [place] [address] [place] [address] Omar Morillo MD [address] [place] [address] 09/07/2025 11:00 AM EDT Office Visit [facility] [address] [place] [address] Maikel King DO [address] [place] [address] documented as of this encounter [...] ORDERABLES Final Re sult Performing Organization Address [facility] [place] [address] * C-REACTIVE PROTEIN (07/11/2020 5:30 PM EST) CRP 4.92 <=5.00 mg/L 07/11/2020 11:32 PM EST [facility] Blood VENOUS BLOOD / Unknown 07/11/2020 5:30 PM EST 07/11/2020 9:53 PM EST us Preet Cox MD CHEMISTRY ORDERABLES Final Res ult Performing Organization Address [facility] Phone Number [facility] [address] [place] [address], [place] [address] * VANCOMYCIN LEVEL TROUGH (07/11/2020 5:30 PM EST) Vanco Tr 17.9 10.0-<20.0 mcg/mL 07/11/2020 11:34 PM EST [facility] Blood VENOUS BLOOD / Unknown 07/11/2020 5:30 PM EST 07/11/2020 9:53 PM EST Narrative [facility] - 07/11/2020 11:34 PM EST Minimum serum [...] LLC [address] , [place] [address] * (ABNORMAL) COMPREHENSIVE METABOLIC PANEL (07/11/2020 5:30 [...] mL/min/1.7 3 m2 07/11/2020 11:32 PM EST [facility] GFR Non Afr Am 32(L) >=60 mL/min/1.7 3 m2 07/11/2020 11:32 PM EST [facility] Comment: This estimated GFR was calculated [...] ORDERABLES Final Res ult Performing Organization Address [facility] Co de Phone Number [employer] [address] [place] [address] [place] [address] [facility] [address] [place] [address] * SEDIMENTATION RATE AUTOMATED (07/11/2020 5:30 PM EST) Pathologist [facility] Sed Rate 21 0 - 30 mm/hr 07/11/2020 10:54 PM EST [facility] Blood VENOUS BLOOD / Unknown 07/11/2020 5:30 PM EST 07/11/2020 9:53 PM EST Preet Cox MD HEMATOLOGY ORDERABLES Final Re sult Performing Organization Address [facility] [place] [address] * (ABNORMAL) CBC (07/11/2020 5:30 PM EST) WBC 7.1 3.7 - 10.3 x10(3)/mcL 07/11/2020 10:25 PM EST [employer] RBC 3.82(L) 3.90 - 5.20 x10(6)/mcL 07/11/2020 [...] Re sult [facility] [address] [facility] , [address] [place] [id number] documented in this encounter Visit Diagnoses Diagnosis Other general symptoms and signs Elevated erythrocyte sedimentation rate Elevated sedimentation rate Encounter for screening for other metabolic disorders Encounter for therapeutic drug level monitoring Encounter for therapeutic drug monitoring Elevated C-reactive protein (CRP) documented in this encounter Care Teams Plumbing Inspector Relationship Specialty Start Date End Date Rah Mauricio [facility] [address] [place] [address] PCP - General Family Medicine 06/26/16 documented as of this encounter
--- OUTSIDE RECORDS SUMMARY | 2025-03-24 15:11 | XMS_ITS | Clinical Summary ---
Author Organization [facility] [place] Address [address] [facility] [address] [place] [address] Phone Care Team Providers Care Gasoline Finisher Name Role Phone Rah Mauricoi Primary Care Provider [phone] Allergies No known active allergies Medications citalopram (CELEXA) 10 mg Oral Tablet Take by mouth daily. Active fUROsemide (LASIX) 20 mg Oral Tablet Take 1 Tab by mouth daily. 30 Tab 1 Active cyanocobalamin 1,000 mcg Oral Tablet Take 1 Tab by mouth daily. 30 Tab 1 Active folic acid (FOLVITE) 1 mg Oral Tablet Take 1 Tab by mouth daily. 30 Tab 1 Active Cholecalciferol, Vitamin D3, (VITAMIN D3) 50 mcg (2,000 unit) Oral Capsule Take 1 Cap by mouth daily. 30 Cap 1 Active irbesartan (AVAPRO) 150 mg Oral Tablet Take 75 mg by mouth daily. Active OZEMPIC 0.25 mg or 0.5 mg (2 mg/3 mL) SubQ Pen Injector Inject 0.5 mg as directed every 5 days. once a week (on Saturday) 4 Active amoxicillin (AMOXIL) 500 mg Oral Capsule Take 500 mg by mouth 3 times daily. for 10 days 5 Active ezetimibe (ZETIA) 10 mg Oral TabletIndication s:Mixed hyperlipidemia,S tatin intolerance Take 1 Tablet by mouth daily. 30 Tablet 2 Active Hospital, Clinic, or Other Facility Administered Medication Ordered Dose Route Frequency Start Date End Date Status triamcinolone acetonide (KENALOG-40) injection 40 mgIndications:Primary osteoarthritis of both knees 40 mg IAtc ONCE PRN 03/02/2025 03/02/2025 Ended triamcinolone acetonide (KENALOG-40) injection 40 mgIndications:Primary osteoarthritis of both knees 40 mg IAtc ONCE PRN 03/02/2025 03/02/2025 Ended BUPivacaine HCl (MARCAINE) 0.25 % (2.5 mg/mL) injection 2 mLIndications:Primary osteoarthritis of both knees 2 mL IAtc ONCE PRN 03/02/2025 03/02/2025 Ended BUPivacaine HCl (MARCAINE) 0.25 % (2.5 mg/mL) injection 2 mLIndications:Primary osteoarthritis of both knees 2 mL IAtc ONCE PRN 03/02/2025 03/02/2025 Ended Active Problems Problem Noted Date Diagnosed [...] Had been admitted to the hospital at [facility] in 02/2023 for hyperkalemia and MARTIN, thought [...] Encounters Date Type Department Care Team Description 03/02/2025 10:45 AM EDT [facility] [address] [place] [address] Raphael Wylie APRN Primary osteoarthritis of both knees (Primary Dx) 02/16/2025 Refill [facility] [address] [facility] [address] [place] [address] Maikel King, DO Medication Refill from Last 3 Months Immunizations Immunization Administration [...] on file Sexual Orientation Not on file Last Filed Vital Signs Vital Sign Reading [...] Description 05/11/2025 3:00 PM EST [facility] [address] [place] [address] Raphael Wylie, CASE REVIEWER [address] [place] [address] 07/27/2025 12:00 PM EDT Office Visit [facility] Nephrology [place] [address] [place] [address] Omar Morillo MD [address] [place] [id number] 09/07/2025 11:00 AM EDT Office Visit [facility] [address] [place] [address] Maikel King DO [address] [place] [address] Health Maintenance Due Date Last Done Comments Wellness Exam Medicare 1958 Diabetic Eye Exam 08/01/1971 Breast Cancer Screening 1993 Cologuard 1998 Colon Cancer Screening 1998 Colonoscopy 1998 FIT 1998 Sigmoidoscopy 1998 Virtual Colonography 1998 RSV or 60+ (1 - Risk 50-74 years 1-dose series) 08/01/2003 Zoster (1 of 2) 08/01/2003 Bone Density Screening 2018 Hemoglobin A1c 01/18/2021 07/18/2020 Lipids 03/19/2024 03/19/2023 COVID-19 Vaccine ( season) 2025 03/05/2022, 04/07/2021, 10/06/2020, Additional history exists Influenza Vaccine (#1) 2025 , 03/20/2022, 02/28/2021, Additional history exists Kidney Health: eGFR 08/18/2025 08/18/2024, 06/09/2024, 11/04/2023, Additional history exists Kidney Health: uACR 08/18/2025 08/18/2024, DTaP/TDaP/Td (2 - Td or Tdap) 07/02/2027 07/02/2017, 07/09/1996 Hepatitis C Screening Completed 08/13/2020 Pneumococcal Vaccine 50+ Completed 02/28/2021, 10/2019 Hepatitis B Vaccine Aged Out No longe r eligible based on patient's age to complete this topic Meningococcal B Vaccine Aged Out No l onger eligible based on patient's age to complete this topic Procedures Procedure Name Priority Date/Time Associated Diagnosis Comments NH ARTHROCENTESIS LARGE JOINT W/O US BILATERAL Routine 03/02/2025 10:45 AM EDT Primary osteoarthritis of both knees ALBUMIN/CREATININE RATIO, RANDOM URINE Routine 08/18/2024 11:32 AM EDT CKD [...] Recently Relevant to Health Maintenance Results * NH ARTHROCENTESIS LARGE JOINT W/O US BILATERAL (03/02/2025 [...] to verify the correct patient, procedure, equipment, network support and site/side marked as required. Patient was prepped and draped in the usual sterile fashion. Raphael Wylie CASE REVIEWER PROCEDURE/MINOR SURGICAL O RDERABLES Final Result [facility] * MICROALBUMIN/CREATININE RATIO URINE (08/18/2024 11:32 AM EDT) Urine Albumin <12.0 mg/L 08/18/2024 4:40 PM EDT [employer] Urine Creatinine 189.0 mg/dL 08/19/19 4:40 PM EDT [employer] Ur Albumin/Creat Ratio 08/18/2024 4:40 PM EDT [employer] Comment: Because the albumin level is below the level of detection in this urine specimen, the laboratory is unable to calculate a reliable albumin/creatinine ratio. Microalbuminuria is unlikely if the urine albumin concentration is less than 20- 30 mg/L in a random specimen. Urine STRUCTURE OF URINARY TRACT PROPER / Unknown 08/18/2024 11:32 AM EDT 08/18/2024 11:32 AM EDT Carlos A Wolf MD URINE ORDERABLES Final R esult [employer] [address] [facility] , [place] [address] * (ABNORMAL) RENAL FUNCTION PANEL (08/18/2024 11:32 AM EDT) Sodium 141 136 - 145 mmol/L 08/18/2024 4:42 PM EDT [employer] Potassium 4.5 3.5 - 5.0 mmol/L 08/18/2024 4:42 PM EDT [facility] Chloride 103 98 - 107 mmol/L 08/18/2024 4:42 PM EDT [facility] Total CO2 27 22 - 29 mmol/L 08/18/2024 4:42 PM EDT [facility] Anion Gap 11 7 - 16 mmol/L 08/18/2024 4:42 PM EDT [facility] Calcium 9.4 8.8 - 10.4 mg/dL 08/18/2024 4:42 PM EDT [facility] Glucose Lvl 91 70 - 99 mg/dL 08/18/2024 4:42 PM EDT [facility] BUN 27(H) 8 - 23 mg/dL 08/18/2024 4:42 PM EDT [facility] Creatinine 1.00 0.51 - 1.30 mg/dL 08/18/2024 4:42 PM EDT [facility] Albumin 3.8 3.2 - 4.6 gm/dL 08/18/2024 4:42 PM EDT [facility] Phosphorus 3.3 2.5 - 4.5 mg/dL 08/18/2024 4:42 PM EDT [facility] eGFR (CKD-EPIcr 2020) 60 >=60 mL/min/1.7 3 m2 08/18/2024 4:42 PM EDT [facility] Comment:Estimated GFR was ca lculated using the CKD-EPIcr (2020) equation refit without race. The equation is recommended by the National Kidney Foundation - [place] [employer] of Nephrology Task Force. Blood VENOUS BLOOD / Unknown Venipuncture / Unknown 08/18/2024 11:32 AM EDT 08/18/2024 11:32 AM EDT us Carlos A Wolf MD CHEMISTRY ORDERABLES Fin al Result [facility] [address] [facility] , [place] [address] * (ABNORMAL) LIPID PANEL REFLEX (03/19/2023 8:55 AM EST) Cholesterol 188 <200 mg/dL 03/19/2023 5:38 PM EST [facility] Comment: < 200 Desirable 200 - 239 Borderline High >= 240 High Triglyceride 108 <150 mg/dL 03/19/2023 5:38 PM EST [facility] Comment: < 150 Normal 150 - 199 Borderline High 200 - 499 High >= 500 Very High HDL 47 >=40 mg/dL 03/19/2023 5:38 PM EST [facility] Comment: > 60 Optimal 40 - 60 Acceptable < 40 Low LDL Calculated 121(H) <100 mg/dL 03/19/2023 5:38 PM EST [facility] Non-HDL-C Calculated 141(H) <=129 mg/dL 03/19/2023 5:38 PM EST [facility] Comment: <130 Desirable 130-159 Above Desirable 160-189 Borderline High 190-219 High >= 220 Very High Fasting Specimen? Yes None 023 5:38 PM EST [facility] Blood VENOUS BLOOD / Unknown Venipuncture / Unknown 03/19/2023 8:55 AM EST 03/19/2023 8:55 AM EST us Maikel King DO CHEMISTRY ORDERABLES Final R esult [facility] 1 [facility], [address] [place] [id number] [facility] [address] [place] [address] * ACUTE HEPATITIS PANEL (08/13/2020 4:08 PM EDT) Pathologist [facility] Hep Bs Ag Non-Reacti ve Non-Reacti ve 08/13/2020 5:32 PM EDT [facility] Hep B Core IgM Non-Reacti ve Non-Reacti ve 08/13/2020 5:32 PM EDT [facility] Hep A IgM Non-Reacti ve Non-Reacti ve 08/13/2020 5:32 PM EDT [facility] Hep C Ab Non-Reacti ve Non-Reacti ve 08/13/2020 5:32 PM EDT [facility] Blood VENOUS BLOOD / Unknown Venipuncture / Unknown 08/13/2020 4:08 PM EDT 08/13/2020 4:14 PM EDT Hermelindo Doss MD CHEMISTRY ORDERABLES Final Res ult Performing Organization Address [facility] Co de Phone Number [facility] [employer] [address] , [place] [address] * HEMOGLOBIN A1C (07/18/2020 12:30 PM EDT) [facility] Hgb A1C 5.6 4.2 - 5.6 % 07/18/2020 9:22 PM EDT [facility] [employer] [facility] Est. Avg Glucose 114 mg/dL 07/18/2020 9:22 PM EDT [facility] [employer] [facility] Blood VENOUS BLOOD / Unknown 07/18/2020 12:30 PM EDT 07/18/2020 7:20 PM EDT Narrative [facility] [employer] [facility] - 07/18/2020 9:22 PM EDT REFERENCE RANGE: Normal: 4.0-5.6% Pre-diabetes: 5.7-6.4% Provisional diagnosis of diabetes: >6.4% Hgb F>10% and anything which shortens red cell survival, such as hemolytic anemia, or unstable hemoglobin variants such as HbSS, HbSC, or HbCC, will lower the HbA1c value associated with a given level of glycemic control. Preet Cox MD CHEMISTRY ORDERABLES Final Res ult Performing Organization Address [facility] Co de Phone Number [facility] [employer] [facility] [address] [facility] , [place] [address] from Last 3 Months or Most Recently Relevant to Health Maintenance Insurance [place] [address] [place] [address] [place] [address] [place] [address] [place] Advance Directives For more information, please contact: [phone] * Full Code (Latest Code Status on File) Date Activated Date Inactivated Comments 08/13/2020 8:28 PM 08/23/2020 7:53 PM * Full Code Date Activated Date Inactivated Comments 08/13/2020 8:27 PM 08/13/2020 8:28 PM Care Teams Gasoline Finisher Relationship Specialty Start Date End Date Rah Mauricio [address] [place] [address] [address] [place] [address] PCP - General Family Medicine 06/26/16
--- OUTSIDE RECORDS SUMMARY | 2025-03-24 15:11 | XMS_ITS | Encounter Summary ---
Author Organization [place] [address] Care Team Providers Care Pipeline Superintendent Name Role Phone Rah Mauricio Primary Care Provider [phone] Reason for Visit * Reason Comments Medication Refill Encounter Details Date Type Department Care Team (Late Contact Info) Description 02/16/2025 Refill [facility] [place] 606 [facility] [address] [place] [address] Maikel King R, DO [address] [place] [address] Medication Refill Social History Tobacco Use Types [...] Tablet by mouth daily. 30 Tablet 2 02/17/2025 documented in this encounter Plan of Treatment Upcoming Encounters Date Type Department Care Team (Late st Contact Info) Description 05/11/2025 3:00 PM EST Office Visit [facility] [address] [place] [address] Raphael Wylie APRN [address] [place] [address] 07/27/2025 12:00 PM EDT Office Visit [facility] Nephrology [place] [address] [place] [id number] Omar Morillo MD [address] [place] [phone] 09/07/2025 11:00 AM EDT Office Visit [facility] [address] [place] [address] Maikel King DO [address] [place] [address] documented as of this encounter Visit Diagnoses Diagnosis Mixed hyperlipidemia Statin intolerance Other drug allergy documented in this encounter Discontinued Medications Medication Sig Discontinue Reason Start Date End Da te ezetimibe (ZETIA) 10 mg Oral TabletIndications:Mixed hyperlipidemia,Statin intolerance Take 1 Tablet by mouth daily. 11/25/2024 02/17/2025 documented as of this encounter Care Teams Pipeline Superintendent Relationship Specialty Start Date End Date Rah Mauricio [address] [place] [address] [place] [address] PCP - General Family Medicine 06/26/16 documented as of this encounter
--- OUTSIDE RECORDS SUMMARY | 2025-03-24 15:11 | XMS_ITS | Encounter Summary ---
Author Organization [facility] Address One [facility] [address] Care Team Providers Care Crystalizer Name Role Phone HangRah trevizo Primary Care Provider [phone] Encounter Details Date Type Department Care Team (Latest Contact Info) Description 07/04/2020 Lab Requisition [facility] [place] [address] Barry Cox MD [facility] [address] [place] [address] Elevated erythrocyte sedimentation rate; Other [...] 05/11/2025 3:00 PM EST Office Visit [facility] [address] [place] [address] Raphael Wylie, JOHN [address] [place] [address] 07/27/2025 12:00 PM EDT Office Visit [facility] Nephrology [place] [address] [place], [place] [phone] Omar Morillo MD [address] [place] [address] 09/07/2025 11:00 AM EDT Office Visit [facility] [address] [place] [address] Maikel King DO [address] [place] [address] documented as of this encounter Procedures Procedure [...] ORDERABLES Fin al Result Performing Organization Address [facility]/ZIP Co de Phone Number [facility] [address] [place] [phone] * (ABNORMAL) VANCOMYCIN LEVEL TROUGH (07/04/2020 6:30 PM EST) [facility] Vanco Tr 25.6(HH) 10.0-<20.0 mcg/mL 07/05/2020 12:44 AM EST [facility] Blood VENOUS BLOOD / Unknown 07/04/2020 6:30 PM EST 07/04/2020 9:49 PM EST Narrative [facility] [employer] - 07/05/2020 12:44 AM EST Minimum serum concentration for infection control is 10 mcg/mL; a target therapeutic range of 15-20 mcg/mL is recommended for significant infections such as S. aureus. Toxicity does not correlate well with serum concentrations. Supratherapeutic levels are considered to be > 20 mcg/mL. us Barry Cox MD CHEMISTRY ORDERABLES Katrina l Result Performing Organization Address [facility] de Phone Number [employer] [address] [place] [address] , [place] [address] * (ABNORMAL) C-REACTIVE PROTEIN (07/04/2020 6:30 PM EST) [facility] CRP 15.34(H) <=5.00 mg/L 07/04/2020 11:48 PM EST [facility] [employer] Blood VENOUS BLOOD / Unknown 07/04/2020 6:30 PM EST 07/04/2020 9:49 PM EST us Barry Cox MD CHEMISTRY ORDERABLES Katrina l Result Performing Organization Address [facility] Co de Phone Number [facility] [employer], [address] , [place] [address] * (ABNORMAL) COMPREHENSIVE METABOLIC PANEL [...] mL/min/1.7 3 m2 07/04/2020 11:48 PM EST [facility] GFR Non Afr Am 38(L) >=60 mL/min/1.7 3 m2 07/04/2020 11:48 PM EST [facility] Comment: This estimated GFR was [...] ORDERABLES Katrina l Result Performing Organization Address [facility] de Phone Number [facility] I [address] [place] [address] [facility] [address] [place] [address] * SEDIMENTATION RATE AUTOMATED (07/04/2020 6:30 PM EST) Sed Rate 22 0 - 30 mm/hr 07/04/2020 10:52 PM EST [facility] VENOUS BLOOD / Unknown 07/04/2020 6:30 PM EST 07/04/2020 9:49 PM EST Barry Cox MD HEMATOLOGY ORDERABLES Fin al Result Performing Organization Address [facility] de Phone Number [facility] I [address] , [place] [address] * (ABNORMAL) CBC (07/04/2020 6:30 PM EST) WBC 6.4 3.7 - 10.3 x10(3)/mcL 07/04/2020 10:39 PM EST [facility] I O, [facility] RBC 3.71(L) 3.90 - 5.20 x10(6)/mcL 07/04/2020 10:39 PM EST [facility], [facility] Hgb 11.0(L) 11.2 - 15.7 g/dL [...] al Result [facility] 1 [facility] , [place] [address] documented in this encounter Visit Diagnoses Diagnosis Elevated erythrocyte sedimentation rate Elevated sedimentation rate Other general symptoms and signs Elevated C-reactive protein (CRP) Encounter for therapeutic drug level monitoring Encounter for therapeutic drug monitoring documented in this encounter Care Teams Crystalizer Relationship Specialty Start Date End Date Rah Mauricio [address] [place] [address] [address] [facility] [place] [address] PCP - General Family Medicine 06/26/16 documented as of this encounter
--- OUTSIDE RECORDS SUMMARY | 2025-03-24 15:11 | XMS_ITS | Encounter Summary ---
Author Organization [place] [address] Care Team Providers Care Construction Driver Name Role Phone HangRah trevizo Primary Care Provider [phone] Encounter Details Date Type Department Care Team (Late st Contact Info) Description 07/18/2020 Lab Re[place] [address] Preet Cox MD [address] [facility] [address] [place] [address] Encounter for screening for diabetes [...] [facility] [address] [place] [address] Raphael Wylie APRN [address] [place] [address] 07/27/2025 12:00 PM EDT Office Visit [facility] Nephrology [place] [address] [place], [place] [phone] Omar Morillo MD [address] [place] [address] 09/07/2025 11:00 AM EDT Office Visit [facility] [address] [place] [address] Maikel King DO [address] [place] [address] documented as of this encounter Procedures Procedure [...] ORDERABLES Final Re sult Performing Organization Address [facility] [place] [address] * (ABNORMAL) VANCOMYCIN LEVEL TROUGH (07/18/2020 12:30 PM EDT) Pathologist [facility] Vanco Tr 21.0(HH) 10.0-<20.0 mcg/mL 07/18/2020 10:41 PM EDT [facility] Blood VENOUS BLOOD / Unknown 07/18/2020 12:30 PM EDT 07/18/2020 7:20 PM EDT Narrative [facility] [employer] - 07/18/2020 10:41 PM EDT Minimum serum concentration for infection control is 10 mcg/mL; a target therapeutic range of 15-20 mcg/mL is recommended for significant infections such as S. aureus. Toxicity does not correlate well with serum concentrations. Supratherapeutic levels are considered to be > 20 mcg/mL. Preet Cox MD CHEMISTRY ORDERABLES Final Res ult Performing Organization Address [facility] Co de Phone Number [employer] [address] [place] [address], [place] [address] * C-REACTIVE PROTEIN (07/18/2020 12:30 PM EDT) Pathologist [facility] CRP 3.29 <=5.00 mg/L 07/18/2020 9:36 PM EDT [facility] Blood VENOUS BLOOD / Unknown 07/18/2020 12:30 PM EDT 07/18/2020 7:20 PM EDT us Preet Cox MD CHEMISTRY ORDERABLES Final Res ult [facility] [address] [facility] , [place] [address] * (ABNORMAL) COMPREHENSIVE METABOLIC PANEL (07/18/2020 12:30 [...] - 123 U/L 07/18/2020 9:36 PM EDT [facility] [facility] GFR Afr Am 41(L) >=60 mL/min/1.7 3 m2 07/18/2020 9:36 PM EDT [facility] GFR Non Afr Am 35(L) >=60 mL/min/1.7 3 m2 07/18/2020 9:36 PM EDT [facility] Comment: This estimated GFR was [...] ORDERABLES Final Res ult Performing Organization Address City/[facility]/ZIP Co de Phone Number [facility] [employer] [address] [place] [address] [facility] [address] [place] [address] * SEDIMENTATION RATE AUTOMATED (07/18/2020 12:30 PM EDT) Sed Rate 24 0 - 30 mm/hr 07/18/2020 8:42 PM EDT [facility] Blood VENOUS BLOOD / Unknown 07/18/2020 12:30 PM EDT 07/18/2020 7:20 PM EDT us Preet Cox MD HEMATOLOGY ORDERABLES Final Re sult Performing Organization Address City/[facility]/[place] [address] * (ABNORMAL) CBC (07/18/2020 12:30 PM EDT) Pathologist [facility] WBC 8.9 3.7 - 10.3 x10(3)/mcL 07/18/2020 [...] Re sult [facility] 1 [facility] , [address] [place] [id number] * HEMOGLOBIN A1C (07/18/2020 12:30 PM EDT) [facility] Hgb A1C 5.6 4.2 - 5.6 % 07/18/2020 9:22 PM EDT [facility] Est. Avg Glucose 114 mg/dL 07/18/2020 9:22 PM EDT [facility] Blood VENOUS BLOOD / Unknown 07/18/2020 12:30 PM EDT 07/18/2020 7:20 PM EDT Narrative [facility] [employer] - 07/18/2020 9:22 PM EDT REFERENCE RANGE: Normal: 4.0-5.6% Pre-diabetes: 5.7-6.4% Provisional diagnosis of diabetes: >6.4% Hgb F>10% and anything which shortens red cell survival, such as hemolytic anemia, or unstable hemoglobin variants such as HbSS, HbSC, or HbCC, will lower the HbA1c value associated with a given level of glycemic control. us Preet Cox MD CHEMISTRY ORDERABLES Final Res ult [facility] [address] [facility] , [place] [address] documented in this encounter Visit Diagnoses Diagnosis Encounter for screening for diabetes mellitus Screening for diabetes mellitus Other general symptoms and signs Elevated erythrocyte sedimentation rate Elevated sedimentation rate Elevated C-reactive protein (CRP) documented in this encounter Care Teams Construction Driver Relationship Specialty Start Date End Date Rah Mauricio [facility] [address] [place] [address] PCP - General Family Medicine 06/26/16 documented as of this encounter
--- OUTSIDE RECORDS SUMMARY | 2025-03-24 15:11 | XMS_ITS | Encounter Summary ---
Author Organization [facility] [place] [address] Care Team Providers Care Superintendent Drivers Name Role Phone HangRah trevizo Primary Care Provider [phone] Encounter Details Date Type Department Care Team (Latest Contact Info) Description 08/02/[address] [facility] [place] [address] Barry Cox MD [address] [place] [address] Other general symptoms and signs; [...] Description 05/11/2025 3:00 PM EST Office Visit Cory APPIAH [address] [place] [address] Raphael Wylie APRN [address] [place] [address] 07/27/2025 12:00 PM EDT Office Visit [facility] Nephrology Irma [address] [place], [place] [id number] Omar Morillo MD [address] [place] [address] 09/07/2025 11:00 AM EDT Office Visit [facility]PT[facility] [address] [place] [id number] Maikel King, [address] [place] [address] documented as of this encounter Procedures Procedure [...] Cox MD HEMATOLOGY ORDERABLES Fin al Result [facility] [address] [id number] * (ABNORMAL) VANCOMYCIN LEVEL TROUGH (08/02/2020 1:00 PM EDT) Pathologist [facility] Vanco Tr <4.0(L) 10.0-<20.0 mcg/mL 08/02/2020 6:25 PM EDT [facility] [employer] Blood VENOUS BLOOD / Unknown 08/02/2020 1:00 PM EDT 08/02/2020 3:25 PM EDT Narrative [facility] [employer] - 08/02/2020 6:25 PM EDT Minimum serum concentration for infection control is 10 mcg/mL; a target therapeutic range of 15-20 mcg/mL is recommended for significant infections such as S. aureus. Toxicity does not correlate well with serum concentrations. Supratherapeutic levels are considered to be > 20 mcg/mL. us Barry Cox MD CHEMISTRY ORDERABLES Katrina l Result Performing Organization Address [facility]/ZIP Co de Phone Number [facility] [employer] [address] [place] [address] , [place] [address] * (ABNORMAL) C-REACTIVE PROTEIN (08/02/2020 1:00 PM EDT) [facility] CRP 15.37(H) <=5.00 mg/L 08/02/2020 6:19 PM EDT [facility] Blood VENOUS BLOOD / Unknown 08/02/2020 1:00 PM EDT 08/02/2020 3:25 PM EDT us Barry Cox MD CHEMISTRY ORDERABLES Katrina l Result Performing Organization Address City/[facility]/ZIP Co de Phone Number [facility] [address] [place] [address] , [place] [address] * (ABNORMAL) COMPREHENSIVE METABOLIC PANEL (08/02/2020 1:00 PM EDT) [facility] Sodium 139 136 - 145 mmol/L 08/02/2020 7:25 PM EDT [facility] Potassium 5.1(H) 3.5 - 5.0 mmol/L 08/02/2020 7:25 PM EDT [facility] Chloride 97(L) 98 - 107 mmol/L 08/02/2020 7:25 PM EDT [facility] Total CO2 25 22 - 29 mmol/L 08/02/2020 7:25 PM EDT [facility] Anion Gap 17(H) 7 - 16 mmol/L 08/02/2020 7:25 PM EDT [facility] Calcium 10.2 8.8 - 10.4 mg/dL 08/02/2020 [...] 08/02/2020 7:25 PM EDT [facility] ALT 63(H) <=41 U/L 08/02/2020 7:25 PM EDT [facility] AST 40 <=40 U/L 08/02/2020 7:25 PM EDT [facility] Alk Phos 150(H) 36 - 123 U/L 08/02/2020 7:25 PM EDT [facility] GFR Afr Am 34(L) >=60 mL/min/1.7 3 m2 08/02/2020 7:25 PM EDT [facility] GFR Non Afr Am 30(L) >=60 mL/min/1.7 3 m2 08/02/2020 7:25 PM EDT [facility] Comment: This estimated GFR [...] l Result Performing Organization Address [facility] de Phone Number [facility] [employer] , [place] [address] [facility] [address] [place] [address] * SEDIMENTATION RATE AUTOMATED (08/02/2020 1:00 PM EDT) Sed Rate 20 0 - 30 mm/hr 08/02/2020 6:13 PM EDT [facility] [employer] Blood VENOUS BLOOD / Unknown 08/02/2020 1:00 PM EDT 08/02/2020 3:25 PM EDT Barry Cox MD HEMATOLOGY ORDERABLES Fin al Result Performing Organization Address [facility] de Phone Number [facility] [employer] , [place] [address] * (ABNORMAL) CBC (08/02/2020 1:00 PM EDT) WBC 8.1 3.7 - 10.3 x10(3)/mcL 08/02/2020 6:06 PM EDT [facility] RBC 3.78(L) 3.90 - 5.20 x10(6)/mcL 08/02/2020 [...] ORDERABLES Fin al Result [facility] [address] [facility] , [place] [address] documented in this encounter Visit Diagnoses Diagnosis Other general symptoms and signs Elevated erythrocyte sedimentation rate Elevated sedimentation rate Encounter for therapeutic drug level monitoring Encounter for therapeutic drug monitoring documented in this encounter Care Teams Superintendent Drivers Relationship Specialty Start Date End Date Rah Mauricio [id number] [place] [address] PCP - General Family Medicine 06/26/16 documented as of this encounter
== END 2025-03-23 23:59 | disposition home or self-care (01) ==
LOC: LAB.DROPOF 03-24 13:50
PROVIDERS: PCP Nurse Practitioner; Visit Provider Nurse Practitioner
DX: E11.9 Type 2 diabetes mellitus without complications (principal)
CPT/HCPCS: 80053; 83036